=== PATIENT | male | born 1940 | race Caucasian/White ===

== ENCOUNTER 2020-02-01 13:00 | Outpatient (CLI) | payer MEDICARE, SELFPAY | END 2020-02-01 13:01 | disposition home or self-care (01) | LOC: WOUND 13:03 | PROVIDERS: Family Provider Internal Medicine; Visit Provider Nurse Practitioner Family | DX: I89.0 Lymphedema, not elsewhere classified (principal) | CPT/HCPCS: 99212; A6545 ==

== ENCOUNTER → 2020-02-02 16:02 | Outpatient (BNVA) | payer MEDICARE, SELFPAY | PROVIDERS: Family Provider Internal Medicine; PCP Family Medicine; Visit Provider Internal Medicine Cardiovascular Disease | DX: R06.09 Other forms of dyspnea (principal); R07.9 Chest pain, unspecified; I50.33 Acute on chronic diastolic (congestive) heart failure; M79.89 Other specified soft tissue disorders; R06.02 Shortness of breath; Z79.01 Long term (current) use of anticoagulants | CPT/HCPCS: 80048; 83880; 85025 ==

== ENCOUNTER 2020-07-13 13:03 | Outpatient (CLI) | payer MEDICARE, SELFPAY | END 2020-07-13 13:04 | disposition home or self-care (01) | LOC: WOUND 13:04 | PROVIDERS: Family Provider Internal Medicine; PCP Family Medicine; Visit Provider Thoracic Surgery (Cardiothoracic Vascular Surgery) | DX: E11.622 Type 2 diabetes mellitus with other skin ulcer (principal); L97.822 Non-pressure chronic ulcer of other part of left lower leg with fat layer exposed | CPT/HCPCS: 97597; 99203 ==

== ENCOUNTER 2020-07-15 09:43 | Outpatient (CLI) | payer MEDICARE, SELFPAY | END 2020-07-15 09:44 | disposition home or self-care (01) | LOC: WOUND 09:44 | PROVIDERS: Family Provider Internal Medicine; PCP Family Medicine; Visit Provider Surgery | DX: E11.622 Type 2 diabetes mellitus with other skin ulcer (principal); L97.222 Non-pressure chronic ulcer of left calf with fat layer exposed | CPT/HCPCS: 29581 ==

== ENCOUNTER 2020-07-20 08:02 | Outpatient (CLI) | payer MEDICARE, SELFPAY ==
--- NOTE | 2020-07-20 | USCV_ITS ---
Junior Ciara Age: 80 Gender: M : 1940 Exam Date: 07/20/2020 08:35 Ordering Phys: Sagar Glasgow MD (Andy) ([email or web address] [email or web address] Technologist: [place] [facility] [place]: non healing ulcer RIGHT LEFT Brachial 136.00 mmHg Brachial 126.00 mmHg Pressure (mmHg) Waveform Pressure (mmHg) Waveform 166.00 Below Knee 144.00 210.00 CAMP MANAGER 173.00 208.00 DPA 166.00 1.54 Ankle/Brachial Index 1.27 139.00 Pre-Exercise Toe Pressure 113.00 1.02 Pre-Exercise Toe/Brachial Index 0.83 FINDINGS Supernormal resting NAN on the right side with a normal resting TBI. Normal resting NAN and TBI on the left side. CONCLUSIONS No significant arterial obstruction, based on the above findings Dr Aysha Jacobo MD [facility]GED WITH [facility] (Electronically Signed) Final Date: 20 July 2020 11:51 S
--- NOTE | 2020-07-20 08:11 | USCV_ITS ---
Junior Ciara Age: 80 Gender: M : 1940 Exam Date: 07/20/2020 08:40 Ordering Phys: Sagar Glasgow MD (Andy) ([email or web address]) Technologist: Mary Kate Boyce [place] [facility] [place]: non healing ulcer HISTORY: Non healing ulcer PROCEDURES: Bilateral duplex Venous Insufficiency study of the Deep and Superficial systems was carried out according to normal protocol with the patient in supine positon for deep system and dependent position for the superficial system. FINDINGS: Unable to perform exam due to intolerance by patient. Dr. Glasgow was informed, Need a non diagnostic report to show it was attempted. CONCLUSIONS Exam attempted and Patient unable to tolerate examination. Jb Power MD (Electronically Signed) Final Date: 20 July 2020 17:15 S
== END 2020-07-20 08:03 | disposition home or self-care (01) ==
LOC: RAD 08:09
PROVIDERS: PCP Family Medicine; Visit Provider Thoracic Surgery (Cardiothoracic Vascular Surgery)
DX: M79.604 Pain in right leg (principal); M79.605 Pain in left leg; L53.9 Erythematous condition, unspecified; L97.929 Non-pressure chronic ulcer of unspecified part of left lower leg with unspecified severity; L97.919 Non-pressure chronic ulcer of unspecified part of right lower leg with unspecified severity
CPT/HCPCS: 93923; 93970

== ENCOUNTER 2020-07-20 09:24 | Outpatient (CLI) | payer MEDICARE, SELFPAY | END 2020-07-20 09:25 | disposition home or self-care (01) | LOC: WOUND 09:25 | PROVIDERS: PCP Family Medicine; Visit Provider Thoracic Surgery (Cardiothoracic Vascular Surgery) | DX: I87.2 Venous insufficiency (chronic) (peripheral) (principal); L97.822 Non-pressure chronic ulcer of other part of left lower leg with fat layer exposed; M79.604 Pain in right leg; M79.605 Pain in left leg; L53.9 Erythematous condition, unspecified; L97.929 Non-pressure chronic ulcer of unspecified part of left lower leg with unspecified severity; L97.919 Non-pressure chronic ulcer of unspecified part of right lower leg with unspecified severity | CPT/HCPCS: 11042; 93923 ==

== ENCOUNTER 2020-07-27 14:40 | Outpatient (CLI) | payer MEDICARE, SELFPAY | END 2020-07-27 14:41 | disposition home or self-care (01) | LOC: WOUND 14:41 | PROVIDERS: PCP Family Medicine; Visit Provider Thoracic Surgery (Cardiothoracic Vascular Surgery) | DX: I87.2 Venous insufficiency (chronic) (peripheral) (principal); L97.822 Non-pressure chronic ulcer of other part of left lower leg with fat layer exposed; L97.812 Non-pressure chronic ulcer of other part of right lower leg with fat layer exposed | CPT/HCPCS: 11042 ==

== ENCOUNTER 2020-07-29 12:58 | Outpatient (CLI) | payer MEDICARE, SELFPAY | END 2020-07-29 12:59 | disposition home or self-care (01) | LOC: WOUND 12:58 | PROVIDERS: PCP Family Medicine; Visit Provider Surgery | DX: E11.622 Type 2 diabetes mellitus with other skin ulcer (principal); L97.222 Non-pressure chronic ulcer of left calf with fat layer exposed | CPT/HCPCS: 29581 ==

== ENCOUNTER 2020-08-02 14:20 | Outpatient (CLI) | payer MEDICARE, SELFPAY | END 2020-08-02 14:21 | disposition home or self-care (01) | LOC: WOUND 14:21 | PROVIDERS: PCP Family Medicine; Visit Provider Nurse Practitioner Family | DX: I87.2 Venous insufficiency (chronic) (peripheral) (principal); L97.811 Non-pressure chronic ulcer of other part of right lower leg limited to breakdown of skin | CPT/HCPCS: 11042 ==

== ENCOUNTER 2020-08-09 13:37 | Outpatient (CLI) | payer MEDICARE, SELFPAY | END 2020-08-09 13:38 | disposition home or self-care (01) | LOC: WOUND 13:38 | PROVIDERS: PCP Family Medicine; Visit Provider Nurse Practitioner Family | DX: E11.622 Type 2 diabetes mellitus with other skin ulcer (principal); L97.222 Non-pressure chronic ulcer of left calf with fat layer exposed | CPT/HCPCS: 29581; 99214 ==

== ENCOUNTER 2020-08-16 13:29 | Outpatient (CLI) | payer MEDICARE, SELFPAY | END 2020-08-16 13:30 | disposition home or self-care (01) | LOC: WOUND 13:30 | PROVIDERS: PCP Family Medicine; Visit Provider Thoracic Surgery (Cardiothoracic Vascular Surgery) | DX: Z09 Encounter for follow-up examination after completed treatment for conditions other than malignant neoplasm (principal) | CPT/HCPCS: 99212; A6545 ==

== ENCOUNTER → 2020-08-17 15:45 | Outpatient (BNVA) | payer MEDICARE, SELFPAY | PROVIDERS: PCP Internal Medicine; Visit Provider Emergency Medicine | DX: Z20.828 Contact with and (suspected) exposure to other viral communicable diseases (principal) | CPT/HCPCS: 87635 ==

== ENCOUNTER 2020-08-24 07:40 | Outpatient (CLI) | payer MEDICARE, SELFPAY ==
[2020-08-24 07:43] VITALS: BMI 36.9
--- NOTE | 2020-08-24 08:01 | ECG_ITS ---
[facility] Test Date: 2020-08-24 Pat Name: Junior Urbina Department: Room: Gender: Male Stay Cutter: Trudi Giraldo : 1940 Requested By: Aysha Jacobo Order Number: [id number] Choco MD: Aysha Jacobo M.D. Interpretive Statements NAME OF STUDY: LEXISCAN SESTAMIBI STRESS TEST INDICATION: Chest Pain, PROCEDURE: At the baseline, the EKG revealed normal sinus rhythm with some nonspecific ST changes. First-degree AV block. The baseline blood pressure was 141/75 mm Hg with a heart rate of 73 beats/min. Lexiscan was infused over a period of 20 seconds. A total of 0.4 milligrams of Lexiscan was infused. The stress phase was continued for a total of 5 minutes. Heart rate at the end of the stress phase was 81 with a blood pressure 140/69. The EKG at the peak infusion revealed no significant changes. Sestamibi was injected 20 seconds after the Lexiscan infusion. Blood pressure at the end of the recovery phase was 150/72 with a heart rate of 83 per minute. CONCLUSION: 1. No significant EKG changes with the LexiScan infusion 2. No LexiScan induced chest pain or cardiac arrhythmia 3. Normal blood pressure and heart rate response 4. Sestamibi/sestamibi perfusion scan pending; see separate report. Electronically Signed On 08-24-2020 19:47:01 BELT CLEANER by Aysha Jacobo M.D. [id number]
--- NOTE | 2020-08-24 08:02 | NMCV_ITS ---
NM deangelo perf SPECT r/s* [id number] Junior Ciara Age: 80 Gender: M : 1940 Exam Date: 08/24/2020 08:02 Ordering Phys: Aysha Jacobo MD ([email or web address]) Technologist: ALFREDO Murdock Exam Location: [facility] Indications: SOB STRESS TEST [facility] IMAGE PROTOCOL Rest/Stress 1 Lexiscan Day Radiopharmaceutical Dose (mCi) Administration Site Administered by Rest: Tc-99m 11.0 IV ALFREDO Murdock Sestamibi Stress:Tc-99m 33.0 IV ALFREDO Murdock Sestamibi Rest: 24-Aug-2020 60 Discovery 630 Stress: 24-Aug-2020 60 Discovery 630 0.4mg Lexiscan. Supine position only as patient was unable to lay prone. SPECT RESULTS Technical Quality: Good Raw Data Analysis: Soft tissue attenuation Image Corrections: No attenuation or motion correction applied Summed Stress Score: 1 Summed Rest Score: 5 Summed Difference Score: 0 PERFUSION FINDINGS Patchy areas of decreased tracer uptake were noted in the inferior and apical lateral wall regions. No significant reversibility was noted in these regions. FUNCTIONAL RESULTS (calculated via Gated SPECT) Stress Image LV EF (%): 60 Stress EDV (mL):96 TID: 1.11 Stress ESV (mL):38 FUNCTIONAL FINDINGS: Segmental wall motion analysis revealing no gross wall motion normalities. IMPRESSIONS 1. Myocardial perfusion imaging revealing patchy areas of persistent decreased tracer uptake in the inferior and apical lateral wall regions, suggestive of myocardial scarring versus attenuation artifact. 2. Normal LV ejection fraction of 60%. 3. LV wall motion analysis revealing no gross wall motion normalities. 4. Normal LV volume. No significant coronary ischemia, based on the above finding Dr Aysha Jacobo MD FACC (Electronically Signed) Final Date: 24 August 2020 13:23 S
[2020-08-24 09:51] VITALS: PULSE 83
[2020-08-24] MEDS: regadenoson 0.4 Mg/5 ml Syringe IVP (09:51)
== END 2020-08-24 07:41 | disposition home or self-care (01) ==
LOC: CDL 07:42
PROVIDERS: PCP Internal Medicine; Visit Provider Internal Medicine Cardiovascular Disease
DX: R06.02 Shortness of breath (principal)
CPT/HCPCS: 78452; 93017; A9500; J2785

== ENCOUNTER 2020-08-24 13:10 | Outpatient (CLI) | payer MEDICARE, SELFPAY | END 2020-08-24 13:11 | disposition home or self-care (01) | LOC: WOUND 13:11 | PROVIDERS: PCP Internal Medicine; Visit Provider Thoracic Surgery (Cardiothoracic Vascular Surgery) | DX: Z09 Encounter for follow-up examination after completed treatment for conditions other than malignant neoplasm (principal) | CPT/HCPCS: 99212 ==

== ENCOUNTER 2020-12-28 06:00 | Outpatient (RCR) | payer MEDICARE, SELFPAY | END 2021-01-13 23:59 | disposition home or self-care (01) | LOC: MOT 06:00 | PROVIDERS: PCP Internal Medicine; Referring Provider Podiatrist Foot & Ankle Surgery; Visit Provider Podiatrist Foot & Ankle Surgery | DX: I89.0 Lymphedema, not elsewhere classified (principal) | CPT/HCPCS: 97140; 97166 ==

== ENCOUNTER 2021-01-14 06:00 | Outpatient (RCR) | payer MEDICARE, SELFPAY | END 2021-02-13 23:59 | disposition home or self-care (01) | LOC: MOT 06:00 | PROVIDERS: PCP Internal Medicine; Referring Provider Podiatrist Foot & Ankle Surgery; Visit Provider Podiatrist Foot & Ankle Surgery | DX: I89.0 Lymphedema, not elsewhere classified (principal) | CPT/HCPCS: 97140 ==

== ENCOUNTER → 2022-03-20 09:22 | Outpatient (BNVA) | payer MEDICARE, SELFPAY | PROVIDERS: PCP Internal Medicine; Visit Provider Emergency Medicine | DX: I96 Gangrene, not elsewhere classified (principal); L97.811 Non-pressure chronic ulcer of other part of right lower leg limited to breakdown of skin | CPT/HCPCS: 11042; 99213 ==

== ENCOUNTER → 2022-03-27 09:44 | Outpatient (BNVA) | payer MEDICARE, SELFPAY | PROVIDERS: PCP Internal Medicine; Visit Provider Nurse Practitioner Family | DX: Z09 Encounter for follow-up examination after completed treatment for conditions other than malignant neoplasm (principal) | CPT/HCPCS: 99212 ==

== ENCOUNTER → 2022-04-02 15:02 | Outpatient (BNVA) | payer MEDICARE, SELFPAY | PROVIDERS: PCP Internal Medicine; Visit Provider Internal Medicine Cardiovascular Disease | DX: R06.02 Shortness of breath (principal); R06.09 Other forms of dyspnea; I50.33 Acute on chronic diastolic (congestive) heart failure; I49.9 Cardiac arrhythmia, unspecified; E78.5 Hyperlipidemia, unspecified; I10 Essential (primary) hypertension; E11.42 Type 2 diabetes mellitus with diabetic polyneuropathy; R07.9 Chest pain, unspecified | CPT/HCPCS: 80048; 83880 ==

== ENCOUNTER → 2022-04-10 09:53 | Outpatient (BNVA) | payer MEDICARE, SELFPAY | PROVIDERS: PCP Internal Medicine; Visit Provider Nurse Practitioner Family | DX: Z09 Encounter for follow-up examination after completed treatment for conditions other than malignant neoplasm (principal) | CPT/HCPCS: 99212 ==

== ENCOUNTER 2022-04-23 16:21 | Observation (INO) | payer MEDICARE, SELFPAY ==
[2022-04-23] VITALS (11 sets, daily range): BP systolic 127–169; BP diastolic 60–86; PULSE 69–80; RESP 17–24; TEMP 36.8; O2SAT 90–100; BMI 36.6
--- NOTE | 2022-04-23 17:21 | XRR_ITS ---
PROCEDURE INFORMATION: Exam: XR Chest Exam date and time: 04/23/2022 5:41 PM Age: 82 years old Clinical indication: Angina; Additional info: Chest pain TECHNIQUE: Imaging protocol: Radiologic exam of the chest. Views: 1 view. COMPARISON: CR Chest 2 views* [id number] 10/09/2017 11:08 AM FINDINGS: Lungs: Unremarkable. No consolidation. Pleural spaces: Unremarkable. No pleural effusion. No pneumothorax. Heart/Mediastinum: Unremarkable. No cardiomegaly. Diaphragm: Stable elevation of the left hemidiaphragm consistent with eventration. Bones/joints: Unremarkable. XR/XR chest 1V portable [id number] IMPRESSION: No acute intracranial findings.
--- NOTE | 2022-04-23 17:21 | ECG_ITS ---
[facility] Test Date: 2022-04-23 Pat Name: Junior Urbina Department: Room: Gender: Male Director Of Special Events: : 1940 Requested By: Merissa Lenz Order Number: [id number] Reading MD: Aysha Jacobo M.D. Measurements Intervals [place] Rate: 73 P: 92 ND: 241 QRS: 17 QRSD: 108 T: 69 QT: 396 QTc: 437 Interpretive Statements SINUS RHYTHM WITH FIRST DEGREE AV BLOCK POSSIBLE RIGHT VENTRICULAR CONDUCTION DELAY [RSR (QR) IN V1/V2] NONSPECIFIC T-WAVE ABNORMALITY Compared to ECG 04/23/2022 16:37:54 No significant changes Electronically Signed On 04-24-2022 0:50:02 CDT by Aysha Jacobo M.D. [id number]
--- NOTE | 2022-04-23 17:27 | ED_ITS ---
HPI - Chest Pain General: Chief Complaint: Chest Pain Stated Complaint: Chest pains Time Seen by Provider: 04/23/22 17:21 [facility] PFSH: Medical History Arrhythmia Atherosclerosis Bilateral occipital neuralgia COPD (chronic obstructive pulmonary disease) Disc degeneration, lumbosacral MANZANARES (dyspnea on exertion) The EKG showed normal sinus rhythm with first-degree AV block. Some nonspecific T wave changes. normal QRS duration. Dyslipidemia (high LDL; low HDL) GERD (gastroesophageal reflux disease) Gout Hypertension Leg swelling Peripheral neuropathy Type 2 diabetes mellitus Surgical History History of ankle surgery History of surgery on arm History of total left hip replacement Hx of cataract extraction Family History Brother Cancer Lung disease Father Cancer Chronic kidney disease (CKD) Grandfather Cancer Lung disease Mother Dementia Diabetes Family/Other Diabetes Chronic kidney disease (CKD) Other CAD (coronary artery disease) Denies family history of Clotting disorder Suicide Anesthesia complication Bleeding disorder Stroke Social History Smoking and tobacco status: former smoker Alcohol intake: never Course Vital Signs: Vital signs: Vital Signs Temperature 98.2 F 04/23/22 16:27 Pulse Rate 80 04/23/22 16:27 Respiratory Rate 17 04/23/22 16:27 Blood Pressure 137/77 04/23/22 16:27 Pulse Oximetry 95 04/23/22 16:27 Oxygen Delivery Ny thod 04/23/22 16:27 MDM - Chest Pain Lab Data : 04/23/22 17:35 04/23/22 17:35 Laboratory Results WBC 9.9 10^3/uL (4.0-10.0) 04/23/22 17:35 RBC 4.87 10^6/uL (4.1-5.3) 04/23/22 17:35 Hgb 15.0 g/dL (11.7-16.6) 04/23/22 17:35 Hct 46.8 % (42.0-52.0) 04/23/22 17:35 MCV 96.1 fl (80-94) H 04/23/22 17:35 MCH 30.8 pg (28.0-34.0) 04/23/22 17:35 MCHC 32.1 g/dL (30.0-36.0) 04/23/22 17:35 RDW 15.0 % (12.1-15.1) 04/23/22 17:35 Plt Count 281 10^3/cmm (130-400) 04/23/22 17:35 MPV 9.6 fL (7.4-10.4) 04/23/22 17:35 Neut % (Auto) 68.2 % 04/23/22 17:35 Lymph % (Auto) 20.3 % 04/23/22 17:35 [place] % (Auto) 8.4 % 04/23/22 17:35 Eos % (Auto) 2.2 % 04/23/22 17:35 Baso % (Auto) 0.5 % 04/23/22 17:35 Neut # (Auto) 6.73 10^3/uL (1.8-7.7) 04/23/22 17:35 Lymph # (Auto) 2.0 10^3/uL (0.8-4.8) 04/23/22 17:35 [place] # (Auto) 0.8 10^3/uL (0.2-0.9) 04/23/22 17:35 Eos # (Auto) 0.2 10^3/uL (0.0-0.8) 04/23/22 17:35 Baso # (Auto) 0.1 10^3/uL (0.0-0.1) 04/23/22 17:35 Nucleated RBC % (auto) 0 % 04/23/22 17:35 Nucleated RBCs # 0.0 /100WBC 04/23/22 17:35 Discharge Plan Discharge Patient Disposition: Admitted As Inpatient Clinical Impression: Chest pain Condition: Stable Coding Level of Care Code ED Swaging Machine Operator for Gregor Mcallister
--- NOTE | 2022-04-23 17:38 | PC.NURSE ---
PT reports chest pain radiating to his back and shoulders. Reports cp has been intermittent since saturday, was present when he woke up. Denies dyspnea above baseline, nausea, or diaphoresis. reports overall doesn't feel good. Lung sounds clear. Heart tones normal. Skin pink/warm/dry.
[2022-04-23] MEDS: aspirin 325 mg Tablet PO (17:41)
[2022-04-23 17:49] LABS: Basophils # 0.1 10^3/uL (0.0-0.1); Basophils % 0.5 %; Eosinophils # 0.2 10^3/uL (0.0-0.8); Eosinophils % 2.2 %; Hematocrit 46.8 % (42.0-52.0); Lymphocytes % 20.3 %; Mean Corpuscular HGB Conc 32.1 g/dL (30.0-36.0); Mean Corpuscular Hemoglobin 30.8 pg (28.0-34.0); Mean Corpuscular Volume 96.1 fl (80-94); Mean Platelet Volume 9.6 fL (7.4-10.4); Monocytes # 0.8 10^3/uL (0.2-0.9); Monocytes % 8.4 %; Neutrophils # 6.73 10^3/uL (1.8-7.7); Neutrophils % 68.2 %; Nucleated Red Blood Cells % 0 %; Platelet Count 281 10^3/cmm (130-400); Red Blood Count 4.87 10^6/uL (4.1-5.3); White Blood Count 9.9 10^3/uL (4.0-10.0)
--- NOTE | 2022-04-23 17:57 | CTR_ITS ---
PROCEDURE INFORMATION: Exam: CTA Abdomen and Pelvis With Contrast Exam date and time: 04/23/2022 7:10 PM Age: 82 years old Clinical indication: Condition or disease; Other: Widened mediastinum, chest pain; Shortness of breath TECHNIQUE: Imaging protocol: Computed tomographic angiography of the abdomen and pelvis with contrast. 3D rendering (Not supervised by radiologist): MIP and/or 3D reconstructed images were created by the technologist. Radiation optimization: All CT scans at this facility use at least one of these dose optimization techniques: automated exposure control; mA and/or kV adjustment per patient size (includes targeted exams where dose is matched to clinical indication); or iterative reconstruction. Contrast material: OMNIPAQUE; Contrast volume: 90 ml; Contrast route: INTRAVENOUS (IV); COMPARISON: CR (CHEST, ) 04/23/2022 5:41 PM RADIATION DOSE METRICS: Total DLP (mGy-cm): 1552.36 FINDINGS: Lungs: Bibasilar atelectasis versus minimal infiltrate. Heart: Cardiomegaly. Coronary artery atherosclerotic calcifications. Diaphragm: Left diaphragmatic eventration. Aorta: No aortic aneurysm. No aortic dissection. Celiac trunk and mesenteric arteries: No occlusion or significant stenosis. Renal arteries: No occlusion or significant stenosis. Right iliac arteries: No occlusion or significant stenosis. Left iliac arteries: No occlusion or significant stenosis. Liver: No mass. Gallbladder and bile ducts: Unremarkable. No calcified stones. No ductal dilation. Pancreas: Unremarkable. No mass. No ductal dilation. Spleen: Unremarkable. No splenomegaly. Adrenal glands: Unremarkable. No mass. Kidneys and ureters: Unremarkable. No solid mass. No hydronephrosis. Stomach and bowel: Unremarkable. No obstruction. No mucosal thickening. Appendix: No evidence of appendicitis. Intraperitoneal space: Unremarkable. No free air. No significant fluid collection. Lymph nodes: Unremarkable. No enlarged lymph nodes. Urinary bladder: Unremarkable. No mass. Reproductive: Prostate gland enlarged. Bones/joints: Left hip surgical hardware. Soft tissues: Unremarkable. CT/CT angio chest abdomen pelvis IMPRESSION: 1. Abdominal aorta intact, negative for acute inflammatory process in the abdomen or pelvis. 2. Cardiomegaly. 3. Coronary artery atherosclerotic calcifications. 4. Bibasilar atelectasis versus minimal infiltrate. 5. Left diaphragmatic eventration. 6. Left hip surgical hardware. 7. Prostate gland enlarged.
--- NOTE | 2022-04-23 18:05 | W.ED.GENADLT ---
HPI - General Adult General: Chief complaint: Chest Pain Stated complaint: Chest pains Time Seen by Provider: 04/23/22 17:21 History of Present Illness: CC: Chest Pain HPI: This is a [82] yo patient hx of DM, HTN, COPD presenting to the ED complaining of acute sudden onset intermittent sharp chest pain for the last 2 days. Patient reports initially chest pain was on the left side of the chest and now is on the right. Patient said the each episode also chest pain lasting for few seconds to a minute at a time.. No associated with shortness of breath, chest pain or dyspnea on exertion. Pain is not tearing in nature and does not radiate to the back. Pain not associated with vomiting or PO intake. Denies any recent sympathomimetic drug use. Patient denies any cough. Denies palpitations, dysphagia, diaphoresis, radiation of pain to bilateral arms, jaw. Denies F/N/V/D. Patient denies any recent immobility, surgery, unilateral leg swelling, or prior PE. Patient denies any orthopnea. Onset: 3 days ago Duration: ongoing for the last 3 days Location: home Severity: moderate Associated symptoms: Reports chest pain; Deny dyspnea, nausea, rash, palpitations or vomiting Review of Systems Const: Denies: fever(s) or chills Eyes: Denies: change in vision ENMT: Denies: mouth pain Card: Reports: chest pain; Denies: palpitations Resp: Denies: dyspnea or non-productive cough GI: Denies: abdominal pain, nausea, vomiting or diarrhea : Denies: dysuria Musc: Denies: extremity pain Skin/Breast: Denies: rash or new lesions Neuro: Denies: weakness in extremities Psych: Reports: other (Normal mood) Juanito/Lymph: Denies: easy bruising [facility] ED PFSH: Medical History (Updated 04/25/22 @ 00:01 by ) Arrhythmia Atherosclerosis Bilateral occipital neuralgia Chest pain COPD (chronic obstructive pulmonary disease) 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 Some nonspecific T wave changes. normal QRS duration. Dyslipidemia (high LDL; low HDL) Elevated troponin GERD (gastroesophageal reflux disease) Gout Hypertension Leg swelling Peripheral neuropathy PVD (peripheral vascular disease) Type 2 diabetes mellitus Surgical History History of ankle surgery History of surgery on arm History of total left hip replacement Hx of cataract extraction Family History Brother Cancer Lung disease Father Cancer Chronic kidney disease (CKD) Grandfather Cancer Lung disease Mother Dementia Diabetes Family/Other Diabetes Chronic kidney disease (CKD) Other CAD (coronary artery disease) Denies family history of Clotting disorder Suicide Anesthesia complication Bleeding disorder Stroke Social History Smoking and tobacco status: former smoker Alcohol intake: never Physical Exam Const: COMMON NORMALS: alert HENMT: COMMON NORMALS: atraumatic HEAD & SCALP: atraumatic MOUTH: moist mucous membranes not abnormal Eye: COMMON NORMALS: EOMs intact bilaterally and conjunctivae normal CONJUNCTIVA: Yes conjunctivae normal Neck/C-Spine: COMMON NORMALS: full ROM and supple Resp: COMMON NORMALS: normal respiratory effort and clear to auscultation bilaterally AUSCULTATION: clear to auscultation bilaterally Cardio: COMMON NORMALS: regular rate RATE: regular rate OTHER: 2+ radial pulses b/l GI: COMMON NORMALS: Soft to palpation and non-tender PALPATION: Yes Soft to palpation OTHER: No focal TTP. NO guarding rebound, guarding, rigidity. No CVA tenderness to percussion. Neg Rocha/Neg McBurney's point tenderness, no suprabupic tenderness to palpation. Extremity: COMMON NORMALS: full ROM Neuro: SENSORIUM/ORIENTATION: Yes alert MOTOR EXAM: No Abnormal motor strength present and Other motor observations present (no focal motor deficits) Psych: COMMON NORMALS: speech normal SPEECH: Yes normal speech MOOD & AFFECT: Yes euthymic mood Course Vital Signs: Vital signs: Vital Signs Temperature 97.9 F 04/24/22 14:27 Pulse Rate 70 04/24/22 14:27 Respiratory Rate 16 04/24/22 14:27 Blood Pressure 130/81 04/24/22 14:27 Pulse Oximetry 91 04/24/22 14:27 Oxygen Delivery Me thod 04/24/22 12:00 MDM - General Adult Medical Decision Making [82]yo patient w/ hx of DM, HTN presenting to the ED with evaluation of new onset sharp chest pain on the left and right chest for the last 3 days. Days. HDS, pulse 2+ radially bilaterally, no signs of fluid overload, AAOx3, neuro exam intact. Workup: ECG x 2, CXR, CBC, BMP, Troponin x 2 Interventions: ASA Findings: ECG: No overt evidence of STEMI, hyperacute T waves, localizable STD or T wave inversions. No evidence of Brugada?s sign, delta wave, epsilon wave, significantly prolonged QTc, or malignant arrhythmia. No Q waves. Other Labs unremarkable for emergent problems. CXR: Without PTX, PNA, or widened mediastinum [8:33pm] On reassessment, the patient is HDS, no complaints of persistent chest pain in the ED after evaluation. ECG is non-ischemic. Troponins with a delta of 7. No prior chest pain work-up. Patient remitted to hospital for further evaluation. Disposition: admission Lab Data : 04/24/22 02:04 04/24/22 02:04 Radiology Impressions Chest X-Ray 04/23/22 17:21 IMPRESSION: No acute intracranial findings. Chest/Abdomen/Pelvis CTA 04/23/22 17:57 IMPRESSION: 1. Abdominal aorta intact, negative for acute inflammatory process in the abdomen or pelvis. 2. Cardiomegaly. 3. Coronary artery atherosclerotic calcifications. 4. Bibasilar atelectasis versus minimal infiltrate. 5. Left diaphragmatic eventration. 6. Left hip surgical hardware. 7. Prostate gland enlarged. Laboratory Results WBC 9.9 10^3/uL (4.0-10.0) 04/23/22 17:35 RBC 4.87 10^6/uL (4.1-5.3) 04/23/22 17:35 Hgb 15.0 g/dL (11.7-16.6) 04/23/22 17:35 Hct 46.8 % (42.0-52.0) 04/23/22 17:35 MCV 96.1 fl (80-94) H 04/23/22 17:35 MCH 30.8 pg (28.0-34.0) 04/23/22 17:35 MCHC 32.1 g/dL (30.0-36.0) 04/23/22 17:35 RDW 15.0 % (12.1-15.1) 04/23/22 17:35 Plt Count 281 10^3/cmm (130-400) 04/23/22 17:35 MPV 9.6 fL (7.4-10.4) 04/23/22 17:35 Neut % (Auto) 68.2 % 04/23/22 17:35 Lymph % (Auto) 20.3 % 04/23/22 17:35 [place] % (Auto) 8.4 % 04/23/22 17:35 Eos % (Auto) 2.2 % 04/23/22 17:35 Baso % (Auto) 0.5 % 04/23/22 17:35 Neut # (Auto) 6.73 10^3/uL (1.8-7.7) 04/23/22 17:35 Lymph # (Auto) 2.0 10^3/uL (0.8-4.8) 04/23/22 17:35 [place] # (Auto) 0.8 10^3/uL (0.2-0.9) 04/23/22 17:35 Eos # (Auto) 0.2 10^3/uL (0.0-0.8) 04/23/22 17:35 Baso # (Auto) 0.1 10^3/uL (0.0-0.1) 04/23/22 17:35 Nucleated RBC % (auto) 0 % 04/23/22 17:35 Nucleated RBCs # 0.0 /100WBC 04/23/22 17:35 Sodium 139 mmol/L (136-145) 04/23/22 17:35 Potassium 3.6 mmol/L (3.5-5.1) 04/23/22 17:35 Chloride 100 mmol/L (98-107) 04/23/22 17:35 Carbon Dioxide 29 mmol/L (22-29) 04/23/22 17:35 Anion Gap 13.6 (5-19) 04/23/22 17:35 BUN 13 mg/dL (8-23) 04/23/22 17:35 Creatinine 0.7 mg/dL (0.7-1.2) 04/23/22 17:35 GFR Calculation Not Reportable 04/23/22 17:35 Glucose 122 mg/dL (65-115) H 04/23/22 17:35 Estimat Average Glucose 154 04/23/22 17:35 Hemoglobin A1c 7.0 % (4.0-6.0) H 04/23/22 17:35 Calculated Osmolality 289 mOsm/kg (285-295) 04/23/22 17:35 Calcium 9.5 mg/dL (8.5-10.5) 04/23/22 17:35 Troponin T Baseline 12 ng/L (0-15) 04/23/22 17:35 Troponin T 120 Minute 19.74 ng/L (0-15) H 04/23/22 19:40 Delta Troponin T 7.74 ABS# (0-10) 04/23/22 19:40 TSH 2.07 uIU/mL (0.27-4.20) 04/23/22 17:35 Discharge Plan Discharge Patient Disposition: Admitted As Inpatient Admit Provider: Yoandy Rodriguez Clinical Impression: Chest pain, Elevated troponin Condition: Stable Coding Level of Care Code ED [employer] Director for Chg Fwd Exam Comprehensive
[2022-04-23 18:50] LABS: Troponin(5th) Baseline 12 ng/L (0-15)
--- NOTE | 2022-04-23 19:05 | PC.NURSE ---
report given to Renetta
[2022-04-23 19:15] LABS: Anion Gap 13.6 (5-19); Osmolality Calculated 289 mOsm/kg (285-295); Potassium 3.6 mmol/L (3.5-5.1)
[2022-04-23] MEDS: iohexol 350 mg/mL 100 mL Btl IV (19:17)
[2022-04-23 19:24] LABS: Blood Urea Nitrogen 13 mg/dL (8-23); Calcium 9.5 mg/dL (8.5-10.5); Carbon Dioxide 29 mmol/L (22-29); Chloride 100 mmol/L (98-107); Glucose 122 mg/dL (65-115); Sodium 139 mmol/L (136-145)
[2022-04-23 20:19] LABS: Troponin 5 2HR 19.74 ng/L (0-15)
[2022-04-23 20:24] LABS: Troponin 5 2HR Delta 7.74 ABS# (0-10)
--- NOTE | 2022-04-23 21:37 | USCV_ITS ---
Junior Ciara Age: 82 Gender: M : 1940 Exam Date: 04/23/2022 23:04 Ordering Phys: Yoandy Rodriguez MD Technologist: GUANAKITO Exam Location: [facility] [place] Indication: CHEST pain. No history of cardiac intervention per patient. BP: 169 / 73 HR: 71 Rhythm: Sinus Technical Quality: Technically difficult study poor windows MEASUREMENTS (Male / Female) Normal Values 2D ECHO LV Diastolic Diameter PLAX 3.2 cm 4.2 - 5.9 / 3.9 - 5.3 cm LV Systolic Diameter PLAX 2.3 cm IVS Diastolic Thickness 1.6 cm 0.6 - 1.0 / 0.6 - 0.9 cm IVS Systolic Thickness 1.7 cm LVPW Diastolic Thickness 1.6 cm 0.6 - 1.0 / 0.6 - 0.9 cm LVPW Systolic Thickness 1.7 cm LVOT Diameter 2.3 cm LV Ejection Fraction 2D Teich 55.5 % LV Ejection Fraction MOD 2C 48.7 % LV Ejection Fraction 2C AL 49.3 % LA Diameter 4.3 cm LA Width 4.2 cm LA Height 5.4 cm RA Width 3.3 cm RA Height 4.8 cm Aorta at Sinotubular Diameter 3.7 cm M-MODE Aortic Annulus Diameter 3.8 cm LA Ao Ratio MM 1.0 MV E Point Septal Separation 0.6 cm DOPPLER AV Peak Velocity 89.0 cm/s LVOT Peak Velocity 73.0 cm/s AV Area Cont Eq vti 3.4 cm squared AV Area Cont Eq pk 3.4 cm squared MV Area PHT 2.2 cm squared Mitral E to A Ratio 0.9 MV E' Velocity 51.0 cm/s Mitral E to MV E' Ratio 12.1 Mitral E to LV E' Lateral Ratio 10.6 Mitral E to LV E' Septal Ratio 14.3 FINDINGS Left Ventricle Technically limited quality echocardiogram because of poor ultrasonic windows. LV systolic function is grossly normal. Regional wall motion abnormalities cannot be accurately assessed because of poor visualization. Right Ventricle Grossly normal Right Atrium Not well-visualized Left Atrium Normal in size Mitral Valve Grossly normal Aortic Valve Not well-visualized Tricuspid Valve Not well-visualized Pulmonic Valve Not visualized Pericardium Grossly normal Aorta Mildly dilated aortic root IVC CONCLUSIONS Technically limited quality echocardiogram because of poor ultrasonic windows. LV systolic function is grossly normal. Regional wall motion abnormalities cannot be accurately assessed because of poor visualization. Valves are not well visualized. Mildly dilated aortic root Comparison with prior echocardiograms not possible because of limited quality studies. Yao Clancy MD (Electronically Signed) Final Date: 24 April 2022 12:10 S
--- NOTE | 2022-04-23 21:39 | P.HP_ITS ---
Providers/Chief Complaint Primary Care Provider: Tyler Rucker MD Chief Complaint: Chest pains History of Present Illness Junior Don Urbina is a 82 year old male with a past medical history of [id number]-[id number] type 2 diabetes mellitus, hypertension, hyperlipidemia, COPD, diabetic peripheral neuropathy, who presents to [facility] for chest pain. Patient tells me that he has had chest pain for the last week, it is left-sided daily, but not on the right side, he thought maybe he pulled a muscle, as his chest wall was tender he tells me that he has 6 steps to climb to his home, he thinks that may be that the reason why he has been having anterior substernal chest pain. However the chest pain was becoming more severe, now becoming right so he came to the emergency room for evaluation. No nausea, no vomiting, no paresthesias, no syncope. He tells me that he recently saw Dr. Jacobo for his chest pain in March, he had test orders but he has not completed them yet. Currently chest pain-free, denies smoking no history of coronary stenting, no history of coronary angiogram, last stress test was 2 years ago Review of Systems Const: Denies: fever(s) Eyes: Denies: change in vision ENMT: Denies: nasal congestion Card: Reports: chest pain; Denies: palpitations or pre-syncope Resp: Denies: dyspnea, productive cough, non-productive cough or wheezing GI: Denies: abdominal pain, nausea, vomiting, hematemesis or diarrhea : Denies: flank pain or dysuria Musc: Denies: back pain Skin/Breast: Denies: rash Neuro: Denies: headache(s), dizziness or vertigo Endo: Denies: polyuria or polydipsia Medications/Allergies Home Medications Medication Instructions Recorded Confirmed Last Taken Type Diabetic shoes #1 ea 11/23/19 04/02/22 Unknown Rx allopurinol 300 mg tablet 150 mg PO DAILY 11/23/19 04/02/22 Unknown History furosemide 40 mg tablet (Lasix) 40 mg PO DAILY 11/23/19 04/02/22 Unknown History guaifenesin 600 mg tablet, 600 mg PO BID 11/23/19 04/02/22 Unknown History extended release 12 hr (Mucinex) losartan 100 mg tablet 100 mg PO DAILY 11/23/19 04/02/22 Unknown History omeprazole 20 mg capsule,delayed 20 mg PO DAILY 11/23/19 04/02/22 Unknown History release potassium chloride 20 mEq 20 meq PO DAILY 11/23/19 04/02/22 Unknown History tablet,extended release(part/cryst) (Klor-Con M) simvastatin 20 mg tablet 20 mg PO DAILY 11/23/19 04/02/22 Unknown History tamsulosin 0.4 mg capsule 0.4 mg PO DAILY 11/23/19 04/02/22 Unknown History topiramate 100 mg tablet (Topamax) 100 mg PO DAILY 11/23/19 04/02/22 Unknown History limpadeama decongestion to the #1 ea 12/20/20 04/02/22 Unknown Rx lower extremities gabapentin 100 mg capsule 100 mg PO TID #90 caps 10/10/21 04/02/22 Unknown Rx metoprolol tartrate 25 mg tablet 12.5 mg PO BID #90 tabs 10/16/21 04/02/22 Unknown Rx mupirocin 2 % topical ointment 1 applic topical BID #22 grams 01/04/22 04/02/22 Unknown Rx clindamycin HCl 300 mg capsule 600 mg PO QID 7 days #56 caps 03/09/22 04/02/22 Unknown Rx Allergies Allergy/AdvReac Type Severity Reaction Status Date / Time morphine Allergy Unknown unknown Verified 04/02/22 08:11 Sulfa (Sulfonamide Allergy heart acts Verified 04/02/22 08:11 Antibiotics) up PFSH Acute PFSH: Medical History (Updated 04/23/22 @ 21:42 by Yoandy Rodriguez MD) Arrhythmia Atherosclerosis Bilateral occipital neuralgia COPD (chronic obstructive pulmonary disease) Disc degeneration, lumbosacral MANZANARES (dyspnea on exertion) The EKG showed normal sinus rhythm with first-degree AV block. Some nonspecific T wave changes. normal QRS duration. Dyslipidemia (high LDL; low HDL) GERD (gastroesophageal reflux disease) Gout Hypertension Leg swelling Peripheral neuropathy Type 2 diabetes mellitus Surgical History History of ankle surgery History of surgery on arm History of total left hip replacement Hx of cataract extraction Family History Brother Cancer Lung disease Father Cancer Chronic kidney disease (CKD) Grandfather Cancer Lung disease Mother Dementia Diabetes Family/Other Diabetes Chronic kidney disease (CKD) Other CAD (coronary artery disease) Denies family history of Clotting disorder Suicide Anesthesia complication Bleeding disorder Stroke Social History Smoking and tobacco status: former smoker Alcohol intake: never Vitals/I&O/Wt Last Vital Signs Temp 98.2 F 04/23/22 16:27 Pulse 71 04/23/22 18:45 Resp 19 H 04/23/22 18:45 BP 169/73 04/23/22 18:45 Pulse Ox 100 04/23/22 18:45 O2 Del Method 04/23/22 16:27 Weight last 48 hrs Weight 126.099 kg Physical Exam Const: COMMON NORMALS: no acute distress and patient oriented x3 HENMT: COMMON NORMALS: normocephalic HEAD & SCALP: normocephalic Eye: COMMON NORMALS: Equal, round and reactive pupils present and EOMs intact bilaterally Neck/C-Spine: COMMON NORMALS: no JVD Resp: COMMON NORMALS: normal respiratory effort, No retractions, No use of accessory muscles and clear to auscultation bilaterally AUSCULTATION: clear to auscultation bilaterally Cardio: COMMON NORMALS: no JVD, regular rate, regular rhythm, S1 normal heart sound present and S2 normal heart sound present RATE: regular rate RHYTHM: regular rhythm HEART SOUNDS: S1 normal heart sound present and S2 normal heart sound present GI: COMMON NORMALS: Normal to inspection, nondistended, normoactive bowel soun ds present, Soft to palpation, non-tender, No hepatosplenomegaly present, no masses and no bruits PALPATION: Yes Soft to palpation and Yes No hepatosplenomegaly present Extremity: COMMON NORMALS: capillary refill normal, no clubbing, cyanosis or edema, no calf tenderness and no pedal edema Neuro: COMMON NORMALS: patient oriented x3, CN's II-XII intact bilaterally, moves all extremities and no focal motor deficits Psych: COMMON NORMALS: mental status grossly normal Data : 04/23/22 17:35 04/23/22 17:35 A&P Assessment and plan (1) Chest pain: Status: Acute (2) Hypertension: Status: Acute Qualifiers: Hypertension type: essential hypertension Qualified Code(s): I10 - Essential (primary) hypertension (3) Diabetic peripheral neuropathy associated with type 2 diabetes mellitus: Status: Acute (4) PVD (peripheral vascular disease): Status: Acute (5) Dyslipidemia (high LDL; low HDL): Status: Acute (6) Type 2 diabetes mellitus: Status: Acute Plan Chest pain -Sounds atypical in nature -Serial EKGs, serial troponins, telemetry monitoring -Aspirin, statin, metoprolol -Cardiac echo, stress testing -Full code -Lovenox for DVT prophylaxis -DNR/DNI Type 2 diabetes mellitus, A1c, low-dose sliding scale Hypertension, continue Lasix, losartan, metoprolol Hyperlipidemia, continue home meds BPH, continue home meds Attestations Medical Necessity Statement*: Patient patient requires hospitalization, outpatient with observation for chest pain Coding Level of Care Code Acute [place] Worker for [facility] Fwd Diagnoses Chest pain R07.9 Hypertension I10 Hypertension type: essential hypertension Diabetic peripheral neuropathy associated with type 2 diabetes mellitus E11.42 PVD (peripheral vascular disease) I73.9 Dyslipidemia (high LDL; low HDL) E78.5 Type 2 diabetes mellitus E11.9
--- NOTE | 2022-04-23 22:40 | ECG_ITS ---
[facility] Test Date: 2022-04-23 Pat Name: Junior Urbina Department: Room: 259 Gender: Male Residential Instructor: : 1940 Requested By: Merissa Lenz Order Number: [id number] Reading MD: Yao Clancy M.D. Measurements Intervals [place] Rate: 75 P: 67 SC: 238 QRS: 23 QRSD: 102 T: 61 QT: 389 QTc: 437 Interpretive Statements SINUS RHYTHM WITH FIRST DEGREE AV BLOCK NONSPECIFIC T-WAVE ABNORMALITY Compared to ECG 04/23/2022 17:28:09 No significant changes Electronically Signed On 04-24-2022 19:03:10 CDT by Yao Clancy M.D. [id number]
[2022-04-23 23:14] LABS: Estmated Average Glucose 154
[2022-04-23 23:22] LABS: Thyroid Stimulating Hormone 2.07 uIU/mL (0.27-4.20)
--- NOTE | 2022-04-24 | ECG_ITS ---
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 Interpretive Statements NAME OF STUDY: LEXISCAN SESTAMIBI STRESS TEST INDICATION: Chest Pain PROCEDURE: At the baseline, the blood pressure was 128/70 mmHg, oxygen saturation 94% with a heart rate of 79 beats per minute. The electrocardiogram showed normal sinus rhythm, normal axis with nonspecific T wave abnormality. The Lexiscan was infused over a period of 20 seconds. A total of 0.4 milligrams of Lexiscan was infused. The stress phase was continued for a total of 5 minutes. Heart rate at the end of the stress phase was 90 bpm, oxygen saturation 93% with a blood pressure of 126/66 mmHg. The EKG at the peak infusion revealed sinus rhythm at 90 bpm with no significant ST-T wave changes. Study was terminated due to protocol completion. Sestamibi was injected 20 seconds after the Lexiscan infusion. Blood pressure at the end of the recovery phase was 145/67 mmHg, oxygen saturation 92% with a heart rate of 88 beats per minute. CONCLUSION: 1. No significant EKG changes with the LexiScan infusion. 2. No LexiScan induced chest pain or cardiac arrhythmia. 3. Normal blood pressure and heart rate response. 4. Sestamibi/sestamibi perfusion scan pending; see separate report. Electronically Signed On 04-24-2022 12:11:33 CDT by Valery Albert M.D. [id number]
--- NOTE | 2022-04-24 00:20 | PC.NURSE ---
Addendum entered by Mary Anne Mistry RN 04/24/22 00:21: ED notified at this time that patient has Lovenox due. Original Note: At this time, patient still has not arrived to the floor and is still in the ED.
[2022-04-24] MEDS: enoxaparin 40 mg/0.4 mL Syringe SUBCUT (00:30)
[2022-04-24] MEDS: pantoprazole 40 mg SDV IVP (00:31)
--- NOTE | 2022-04-24 00:51 | PC.NURSE ---
Patient has wraps to bilateral lower extremities. Patient states they keep the swelling down. Patient also states, I used to have sores all over my legs that I seen wound care for, but they're all healed now.
[2022-04-24] MEDS: acetaminophen 325 mg Tablet 650 MG PO (01:01)
[2022-04-24 01:17] LABS: Glucose Point of Care 154 mg/dL (70-110)
[2022-04-24 01:20] VITALS: BP 140/70; PULSE 79; RESP 17; TEMP 36.6; O2SAT 96
[2022-04-24 02:43] LABS: Basophils # 0.1 10^3/uL (0.0-0.1); Basophils % 0.6 %; Eosinophils # 0.2 10^3/uL (0.0-0.8); Eosinophils % 2.2 %; Hematocrit 46.6 % (42.0-52.0); Hemoglobin 14.2 g/dL (11.7-16.6); Lymphocytes # 1.9 10^3/uL (0.8-4.8); Mean Corpuscular HGB Conc 30.5 g/dL (30.0-36.0); Mean Corpuscular Hemoglobin 29.7 pg (28.0-34.0); Mean Corpuscular Volume 97.5 fl (80-94); Mean Platelet Volume 10.1 fL (7.4-10.4); Monocytes # 0.7 10^3/uL (0.2-0.9); Monocytes % 8.6 %; Neutrophils # 5.62 10^3/uL (1.8-7.7); Neutrophils % 66.2 %; Nucleated Red Blood Cells % 0 %; Platelet Count 249 10^3/cmm (130-400); Red Blood Count 4.78 10^6/uL (4.1-5.3); White Blood Count 8.5 10^3/uL (4.0-10.0)
[2022-04-24 03:05] LABS: Troponin 5 6HR 16.78 ng/L (0-15); Troponin 5 6HR Delta 4.78 ng/L (0-12)
[2022-04-24 03:10] LABS: Alanine Aminotransferase 25 U/L (0-41); Albumin Level 3.1 g/dL (3.5-5.2); Alkaline Phosphatase 111 IU/L (40-130); Blood Urea Nitrogen 13 mg/dL (8-23); Calcium 9.3 mg/dL (8.5-10.5); Carbon Dioxide 27 mmol/L (22-29); Chloride 103 mmol/L (98-107); Globulin 3.6 g/dL (1.3-4.6); Glucose 168 mg/dL (65-115); Magnesium 2.1 mg/dL (1.7-2.3); Osmolality Calculated 300 mOsm/kg (285-295); Phosphorus 3.2 mg/dL (2.5-4.5); Sodium 143 mmol/L (136-145); Total Bilirubin 0.3 mg/dL (0.15-1.2); Total Protein 6.7 g/dL (6.6-8.7)
[2022-04-24 03:21] LABS: Anion Gap 16.6 (5-19); Aspartate Amino Transferase 23 U/L (0-40); Potassium 3.6 mmol/L (3.5-5.1)
[2022-04-24 03:52] VITALS: PULSE 83
[2022-04-24 04:44] VITALS: BP 135/69; PULSE 85; RESP 20; TEMP 36.9; O2SAT 95
[2022-04-24 06:51] LABS: Glucose Point of Care 125 mg/dL (70-110)
[2022-04-24] MEDS: perflutren protein-a microsphr 0.22 mg/mL SDV 3 mL IV (08:01)
[2022-04-24 08:16] VITALS: BP 145/67; PULSE 88
[2022-04-24] MEDS: regadenoson 0.4 Mg/5 ml Syringe IVP (08:17)
--- NOTE | 2022-04-24 09:30 | NMCV_ITS ---
NM deangelo perf SPECT r/s* [id number] Junior Ciara Age: 82 Gender: M : 1940 Exam Date: 04/24/2022 07:16 Ordering Phys: Yoandy Rodriguez MD Technologist: ALFREDO Rainey Exam Location: [facility] Indications: CHEST PAIN STRESS TEST Please [facility] IMAGE PROTOCOL Rest/Stress 1 Lexiscan Day Radiopharmaceutical Dose (mCi) Administration Site Administered by Rest: Tc-99m 10.8 IV ALFREDO Murdock Sestamibi Stress:Tc-99m 32.9 IV ALFREDO Murdock Sestamibi Rest: 24-Apr-2022 60 Discovery 630 Stress: 24-Apr-2022 30 Discovery 630 0.4mg Lexiscan. Supine position only as patient was unable to lay prone. SPECT RESULTS Technical Quality: Excellent Raw Data Analysis: Normal Image Corrections: No attenuation or motion correction applied Summed Stress Score: 4 Summed Rest Score: 6 Summed Difference Score: 3 PERFUSION FINDINGS Small sized perfusion abnormality of mild severity of basal to mid inferolateral, mid inferior and apical septal wall on rest images with somewhat improved tracer uptake on stress images. Subtle reversibility noted in apical lateral and apical [place] on supine stress images. FUNCTIONAL RESULTS (calculated via Gated SPECT) Stress Image LV EF (%): 67 Stress EDV (mL):106 TID: 1.22 Stress ESV (mL):35 FUNCTIONAL FINDINGS: The left ventricle is normal in size. Transient Ischemia Dilatation of 1.2. There is normal left ventricular systolic function. The left ventricular ejection fraction is normal with a value of 67%. There is normal left ventricular wall thickening. Normal end-diastolic end-systolic volumes. IMPRESSIONS 1. Small sized paradoxical perfusion abnormality of mild severity of basal to mid inferolateral, mid inferior and apical septal and apical lateral [place]. These findings are suggestive of attenuation artifact. 2. Overall left ventricular systolic function is normal without regional wall motion abnormalities. 3. Transient ischemic dilation index mildly increased at 1.2. This may represent hypertensive response/subendocardial ischemia. 4. No EKG changes with Lexiscan infusion. Refer to separate report for details. Valery Albert MD (Electronically Signed) Final Date: 24 April 2022 12:39 S
--- NOTE | 2022-04-24 10:07 | PC.CHAP ---
Pastoral Care Encounter/Spiritual Assessment Type of Contact [] Declined belt picker visit [] Patient/Family/Request visit [] Outpatient visit [] Follow-up visit [] Physician referral [] Code/Alert [x] Routine visit [] Staff referral [] Actively dying [] Patient sleeping [] Family support [] [x] Out of room [] Palliative care [] [] Receiving care in room [] Pre-surgical visit [] Trauma [] Long length of stay [] ICU visit [] Other: Relational/Emotional Strength [] Patient feels connected with others/family/visitors/staff [] Distress [] Loneliness/isolation [] Abandonment Spirituality of Patient [] Person of Carolyn [] Attends Advent of their Carolyn [] Believes in Prayer [] Reads Bible or Yazidi materials [] There are Spiritual issues to be addressed Construction Worker Interventions [] Prayer [] Active listening [] Non-anxious presence [] Spiritual/emotional support [] Crisis/trauma care [] Spiritual counseling [] Bereavement support [] Provided bereavement packet [] Provided Bible/devotional materials [] Provided toy/stuffed animal, coloring book to patient or family member [] Provided Communion [] Anointing/[place] [] Salvation [] Completed spiritual assessment [] Other: Impact on Illness or Injury [] Angry [] Fearful [] Anxious [] Often cries [] Exhaustion [] Unable to work [] Unable to attend judaism [] Unable to walk/stand [] Unable to read [] Unable to drive [] Unable to eat/drink [] Unable to sleep [] Unable to be with family [] Patient intubated [] Other: Summary Time spent with patient
[2022-04-24] MEDS: allopurinol 300 mg Tablet 150 MG PO (10:24)
[2022-04-24] MEDS: potassium chloride ER 20 mEq Tablet PO (10:25)
[2022-04-24] MEDS: topiramate 100 mg Tablet PO (10:26)
[2022-04-24] MEDS: gabapentin 100 mg Capsule PO (10:26)
[2022-04-24] MEDS: atorvastatin 40 mg Tablet 20 MG PO (10:27)
[2022-04-24] MEDS: metoprolol tartrate 25 mg Tablet 12.5 MG PO (10:27)
[2022-04-24] MEDS: losartan 50 mg Tablet 100 MG PO (10:29)
[2022-04-24] MEDS: tamsulosin 0.4 mg Capsule PO (10:31)
[2022-04-24] MEDS: aspirin 81 mg EC Tablet PO (10:32)
[2022-04-24] MEDS: FUROsemide 40 mg Tablet PO (10:32)
[2022-04-24 11:05] LABS: Glucose Point of Care 147 mg/dL (70-110)
[2022-04-24] MEDS: ipratropium-albuterol 3 mL Neb INHALATION (11:19)
[2022-04-24 12:00] VITALS: BP 130/81; PULSE 70; RESP 16; TEMP 36.6; O2SAT 91
[2022-04-24 12:37] LABS: NT Pro B Type Natriuretic Pept 133 pg/mL (0-450)
--- NOTE | 2022-04-24 14:06 | PM.DCS ---
Discharge Providers Date of Admission: 04/23/22 20:31 Date of Discharge: April 24, 2022 Attending Provider at Admission: Yoandy Rodriguez MD Attending Provider at Discharge: Rashel Kendall MD Primary Care Provider: Tyler Rucker MD Diagnoses at Discharge Discharge Diagnosis (1) Chest pain: Status: Acute (2) Hypertension: Status: Acute Qualifiers: Hypertension type: essential hypertension Qualified Code(s): I10 - Essential (primary) hypertension (3) Diabetic peripheral neuropathy associated with type 2 diabetes mellitus: Status: Acute (4) PVD (peripheral vascular disease): Status: Acute (5) Dyslipidemia (high LDL; low HDL): Status: Acute (6) Type 2 diabetes mellitus: Status: Acute Reason for Visit Reason for Visit: Chest pains Hospital Course Hospital Course 82-year-old male who was admitted for work-up of chest pain. Stress test was unremarkable, his symptoms are atypical in nature which are likely related to left hemidiaphragm. He is being discharged in stable condition without change in medications. CTA chest ruled out PE. Physical Exam Narrative: No acute nontender abdomen Doing well on room air No active chest pain Nonfocal neuro exam S1, S2 No active chest pain Nonfocal neuro exam Discharge Data Studies Completed and Pending Completed Studies During Hospitalization Category Date Time Status CTA chest abdomen pelvis [CT angio chest abdomen pelvis Cat Scan 04/23/22 17:57 Completed ] Stat Sestamibi Stress Test Request Routine Exams 04/24/22 06:44 Completed XR chest 1V portable [id number] Stat Exams 04/23/22 17:21 Completed NM deangelo perf SPECT r/s* [id number] Routine Nuc Med 04/24/22 09:30 Completed CV. echo wo/w contrast [id number] Stat Ultrasound 04/23/22 21:37 Completed Pending at discharge Category Date Time Status Sestamibi Stress Test Request Routine Exams 04/23/22 22:38 Stop Req Complete Blood Count w/Auto AM LABS Lab 04/25/22 04:00 Ordered Complete Blood Count w/Auto AM LABS Lab 04/26/22 04:00 Ordered Comprehensive Metabolic Panel AM LABS Lab 04/25/22 04:00 Ordered Comprehensive Metabolic Panel AM LABS Lab 04/26/22 04:00 Ordered Magnesium AM LABS Lab 04/25/22 04:00 Ordered Magnesium AM LABS Lab 04/26/22 04:00 Ordered Phosphorus AM LABS Lab 04/25/22 04:00 Ordered Phosphorus AM LABS Lab 04/26/22 04:00 Ordered Radiology Impressions Chest X-Ray 04/23/22 17:21 IMPRESSION: No acute intracranial findings. Chest/Abdomen/Pelvis CTA 04/23/22 17:57 IMPRESSION: 1. Abdominal aorta intact, negative for acute inflammatory process in the abdomen or pelvis. 2. Cardiomegaly. 3. Coronary artery atherosclerotic calcifications. 4. Bibasilar atelectasis versus minimal infiltrate. 5. Left diaphragmatic eventration. 6. Left hip surgical hardware. 7. Prostate gland enlarged. Laboratory Results WBC 8.5 10^3/uL (4.0-10.0) 04/24/22 02:04 RBC 4.78 10^6/uL (4.1-5.3) 04/24/22 02:04 Hgb 14.2 g/dL (11.7-16.6) 04/24/22 02:04 Hct 46.6 % (42.0-52.0) 04/24/22 02:04 MCV 97.5 fl (80-94) H 04/24/22 02:04 MCH 29.7 pg (28.0-34.0) 04/24/22 02:04 MCHC 30.5 g/dL (30.0-36.0) 04/24/22 02:04 RDW 15.0 % (12.1-15.1) 04/24/22 02:04 Plt Count 249 10^3/cmm (130-400) 04/24/22 02:04 MPV 10.1 fL (7.4-10.4) 04/24/22 02:04 Neut % (Auto) 66.2 % 04/24/22 02:04 Lymph % (Auto) 22.0 % 04/24/22 02:04 Hitchcock % (Auto) 8.6 % 04/24/22 02:04 Eos % (Auto) 2.2 % 04/24/22 02:04 Baso % (Auto) 0.6 % 04/24/22 02:04 Neut # (Auto) 5.62 10^3/uL (1.8-7.7) 04/24/22 02:04 Lymph # (Auto) 1.9 10^3/uL (0.8-4.8) 04/24/22 02:04 Hitchcock # (Auto) 0.7 10^3/uL (0.2-0.9) 04/24/22 02:04 Eos # (Auto) 0.2 10^3/uL (0.0-0.8) 04/24/22 02:04 Baso # (Auto) 0.1 10^3/uL (0.0-0.1) 04/24/22 02:04 Nucleated RBC % (auto) 0 % 04/24/22 02:04 Nucleated RBCs # 0.0 /100WBC 04/24/22 02:04 Sodium 143 mmol/L (136-145) 04/24/22 02:04 Potassium 3.6 mmol/L (3.5-5.1) 04/24/22 02:04 Chloride 103 mmol/L (98-107) 04/24/22 02:04 Carbon Dioxide 27 mmol/L (22-29) 04/24/22 02:04 Anion Gap 16.6 (5-19) 04/24/22 02:04 BUN 13 mg/dL (8-23) 04/24/22 02:04 Creatinine 0.7 mg/dL (0.7-1.2) 04/24/22 02:04 GFR Calculation Not Reportable 04/24/22 02:04 Glucose 168 mg/dL (65-115) H 04/24/22 02:04 POC Glucose 147 mg/dL (70-110) H 04/24/22 11:02 Estimat Average Glucose 154 04/23/22 17:35 Hemoglobin A1c 7.0 % (4.0-6.0) H 04/23/22 17:35 Calculated Osmolality 300 mOsm/kg (285-295) H 04/24/22 02:04 Calcium 9.3 mg/dL (8.5-10.5) 04/24/22 02:04 Phosphorus 3.2 mg/dL (2.5-4.5) 04/24/22 02:04 Magnesium 2.1 mg/dL (1.7-2.3) 04/24/22 02:04 Total Bilirubin 0.3 mg/dL (0.15-1.2) 04/24/22 02:04 AST 23 U/L (0-40) 04/24/22 02:04 ALT 25 U/L (0-41) 04/24/22 02:04 Alkaline Phosphatase 111 IU/L (40-130) 04/24/22 02:04 Troponin T Baseline 12 ng/L (0-15) 04/23/22 17:35 Troponin T 120 Minute 19.74 ng/L (0-15) H 04/23/22 19:40 Delta Troponin T 7.74 ABS# (0-10) 04/23/22 19:40 Troponin T Hi Sens 6Hr 16.78 ng/L (0-15) H 04/24/22 02:04 Troponin T Hi Sens 6Hr Delta 4.78 ng/L (0-12) 04/24/22 02:04 NT-Pro-B Natriuret Pep 133 pg/mL (0-450) 04/24/22 02:04 Total Protein 6.7 g/dL (6.6-8.7) 04/24/22 02:04 Albumin 3.1 g/dL (3.5-5.2) L 04/24/22 02:04 Globulin 3.6 g/dL (1.3-4.6) 04/24/22 02:04 TSH 2.07 uIU/mL (0.27-4.20) 04/23/22 17:35 Vitals Last Vital Signs Temp 97.9 F 04/24/22 12:00 Pulse 70 04/24/22 12:00 Resp 16 04/24/22 12:00 BP 130/81 04/24/22 12:00 Pulse Ox 91 04/24/22 12:00 O2 Del Method 04/24/22 12:00 Discharge Plan Discharge Patient Disposition: Home Condition: Stable Prescriptions: Continued topiramate [Topamax] 100 mg tablet 100 mg PO DAILY potassium chloride [Klor-Con M20] 20 mEq tablet,ER particles/crystals 20 meq PO DAILY guaifenesin [Mucinex] 600 mg tablet extended release 12hr 600 mg PO BID losartan 100 mg tablet 100 mg PO DAILY tamsulosin 0.4 mg capsule 0.4 mg PO DAILY omeprazole 20 mg capsule,delayed release(DR/EC) 20 mg PO DAILY furosemide [Lasix] 40 mg tablet 40 mg PO DAILY simvastatin 20 mg tablet 20 mg PO DAILY allopurinol 300 mg tablet 150 mg PO DAILY (DME) Diabetic shoes Qty: 1 0RF Rx Instructions: As directed (DME) limpadeama decongestion to the lower extremities See Rx Instructions .Route .MEDSUPPLY Qty: 1 0RF Rx Instructions: As directed by physical therapy mupirocin 2 % ointment 1 applic topical BID Qty: 22 1RF Rx Instructions: Apply to affected area until healed clindamycin HCl 300 mg capsule 600 mg PO QID 7 Days Qty: 56 0RF gabapentin 100 mg capsule 100 mg PO TID Qty: 90 3RF metoprolol tartrate 25 mg tablet 12.5 mg PO BID Qty: 90 2RF Discharge Orders: Discharge Order (Routine); Ordered 04/24/22 Ordered By: Rashel Kendall Referrals: Tyler Rucker MD [Primary Care Provider] - Patient Instructions: Opioid Safety Discharge Attestations Time Spent in Discharge Care*: less than 30 min Quality Metrics Clinical Quality Measures [ No reported AMI, CVA or VTE this stay] Coding Level of Care Code Acute Chg FW DC note Diagnoses Chest pain R07.9 Hypertension I10 Hypertension type: essential hypertension Diabetic peripheral neuropathy associated with type 2 diabetes mellitus E11.42 PVD (peripheral vascular disease) I73.9 Dyslipidemia (high LDL; low HDL) E78.5 Type 2 diabetes mellitus E11.9
[2022-04-24 14:27] VITALS: BP 130/81; PULSE 70; RESP 16; TEMP 36.6; O2SAT 91
--- NOTE | 2022-04-24 14:38 | PC.OT ---
OT evaluation not performed due to scheduled patient discharge
== END 2022-04-24 15:07 | disposition home or self-care (01) ==
LOC: ER 18:02 → MEDSURG 21:58
PROVIDERS: Admitting Provider Family Medicine; Emergency Provider Emergency Medicine; PCP Orthopaedic Surgery; Visit Provider Internal Medicine
DX: R07.9 Chest pain, unspecified (principal); I10 Essential (primary) hypertension; E11.42 Type 2 diabetes mellitus with diabetic polyneuropathy; I73.9 Peripheral vascular disease, unspecified; E78.5 Hyperlipidemia, unspecified; I44.0 Atrioventricular block, first degree; J44.9 Chronic obstructive pulmonary disease, unspecified; K21.9 Gastro-esophageal reflux disease without esophagitis; Z66 Do not resuscitate; Z79.82 Long term (current) use of aspirin; N40.0 Benign prostatic hyperplasia without lower urinary tract symptoms
CPT/HCPCS: 36415; 36416; 71045; 71275; 74174; 78452; 80048; 80053; 82962; 83036; 83735; 83880; 84100; 84443; 84484; 85025; 93005; 93017; 93306; 94640; 94664; 96372; 97116; 97161; 99285; A9500; C8929; C9113; G0378; J1650; J2785; Q9956; Q9967

== ENCOUNTER 2022-04-30 12:01 | Outpatient (CLI) | payer MEDICARE, SELFPAY ==
--- NOTE | 2022-04-30 13:45 | USCV_ITS ---
Junior Ciara Age: 82 Gender: M : 1940 Exam Date: 04/30/2022 12:26 Ordering Phys: Skye Hassan DO Technologist: ELIEL Exam Location: [facility] [place] Indication: HISTORY: PROCEDURES: FINDINGS: No significant reflux were noted in the deep veins on the right side The right greater saphenous vein was not visualized below the mid level- too small No significant reflux was noted in the greater saphenous vein on the right side CONCLUSIONS 1. No evidence of DVT. 2. No significant reflux in the deep veins on the right leg. 3. No significant reflux were noted in the greater saphenous vein 4. The greater saphenous vein was not visualized below the mid segment on the right side. Dr Aysha Jacobo MD [facility] (Electronically Signed) Final Date: 30 April 2022 23:25 S
== END 2022-04-30 12:02 | disposition home or self-care (01) ==
LOC: RAD 12:03
PROVIDERS: PCP Orthopaedic Surgery; Visit Provider Emergency Medicine
DX: E11.622 Type 2 diabetes mellitus with other skin ulcer (principal); L98.499 Non-pressure chronic ulcer of skin of other sites with unspecified severity; M79.604 Pain in right leg
CPT/HCPCS: 93971

== ENCOUNTER → 2022-05-01 10:44 | Outpatient (BNVA) | payer MEDICARE, SELFPAY | PROVIDERS: PCP Orthopaedic Surgery; Visit Provider Podiatrist Foot & Ankle Surgery | DX: E11.8 Type 2 diabetes mellitus with unspecified complications (principal); E11.42 Type 2 diabetes mellitus with diabetic polyneuropathy; L60.3 Nail dystrophy; I73.9 Peripheral vascular disease, unspecified; R22.42 Localized swelling, mass and lump, left lower limb; I89.0 Lymphedema, not elsewhere classified | CPT/HCPCS: 11721 ==

== ENCOUNTER 2022-08-04 08:36 | Emergency (ER) | payer MEDICARE, SELFPAY ==
[2022-08-04 08:44] VITALS: BP 157/81; PULSE 81; RESP 16; TEMP 36.9; O2SAT 96; BMI 37.5
--- NOTE | 2022-08-04 09:00 | ED_ITS ---
HPI - Male Genitourinary General: Chief complaint: Urogenital-Male Stated complaint: Unable to urinate Time Seen by Provider: 08/04/22 08:52 Source: patient and family () Mode of arrival: ambulatory Limitations: no limitations History of Present Illness: Patient with complaints of dysphagia difficulty emptying bladder for the past 12 hours or so. Patient states he is been only dribbling this morning. States his bladder is distended and mildly painful. Denies any dysuria or hematuria or fever. He states 3 days ago he had Botox injection in the bladder by a urologist at hospital in [facility]. He states he had brief hematuria after the injections but that has since cleared. He was placed on Cipro 500 mg twice a day for 5 days and also given hydrocodone for any pain. He states he has benign prostatic hypertrophy. He denies any prostate cancer history. Denies any flank pain. Quality: aching Relieving factors: urination Exacerbating factors: other (Inability to empty the bladder.) Associated symptoms: Deny dysuria, hematuria, nausea or vomiting Review of Systems Const: Denies: fever(s) or chills Eyes: Denies: change in vision ENMT: Denies: throat pain Card: Denies: chest pain or palpitations Resp: Denies: dyspnea or wheezing GI: Reports: abdominal pain; Denies: nausea or vomiting : Reports: difficulty urinating, urinary urgency, urinary hesitancy, urinary dribbling and difficulty starting urination; Denies: flank pain, dysuria or hematuria Musc: Denies: neck pain or back pain Skin/Breast: Denies: rash or pruritus Neuro: Denies: headache(s) or numbness in extremities Psych: Denies: anxiety Juanito/Lymph: Denies: enlarged lymph nodes PFS ED PFSH: Medical History Arrhythmia Atherosclerosis Bilateral occipital neuralgia Chest pain COPD (chronic obstructive pulmonary disease) 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 Some nonspe cific T wave changes. normal QRS duration. Dyslipidemia (high LDL; low HDL) Elevated troponin GERD (gastroesophageal reflux disease) Gout Hypertension Leg swelling Peripheral neuropathy PVD (peripheral vascular disease) Type 2 diabetes mellitus Surgical History History of ankle surgery History of surgery on arm History of total left hip replacement Hx of cataract extraction Family History Brother Cancer Lung disease Father Cancer Chronic kidney disease (CKD) Grandfather Cancer Lung disease Mother Dementia Diabetes Family/Other Diabetes Chronic kidney disease (CKD) Other CAD (coronary artery disease) Denies family history of Clotting disorder Suicide Anesthesia complication Bleeding disorder Stroke Social History Smoking and tobacco status: former smoker Alcohol intake: never Supplemental [facility] Information: Patient had recent Botox injection in the bladder at [employer] 3 days ago. Physical Exam Const: COMMON NORMALS: no acute distress, patient oriented x3, alert and well nourished GENERAL APPEARANCE: cooperative OTHER: Obese HENMT: COMMON NORMALS: normocephalic and atraumatic HEAD & SCALP: normocephalic and atraumatic Eye: COMMON NORMALS: EOMs intact bilaterally Neck/C-Spine: COMMON NORMALS: full ROM, no lymphadenopathy, supple and no JVD Lymph: LYMPHATIC: no lymphadenopathy noted Chest: COMMONS NORMALS: normal inspection of the chest and normal palpation of entire chest wall Resp: COMMON NORMALS: normal respiratory effort, No retractions, No use of accessory muscles and clear to auscultation bilaterally AUSCULTATION: clear to auscultation bilaterally Cardio: COMMON NORMALS: no JVD, regular rate, regular rhythm and Peripheral pulses 2+ throughout RATE: regular rate RHYTHM: regular rhythm PERIPHERAL PULSES: Peripheral pulses 2+ throughout OTHER: Mild suprapubic abdominal tenderness. Bladder does appear to be distended to the umbilicus. No bruits. No pulsatile masses. GI: COMMON NORMALS: Soft to palpation PALPATION: Yes Soft to palpation : COMMON NORMALS: Yes no CVA tenderness BLADDER/KIDNEY EXAM: Yes no CVA tenderness Back/Pelvis: COMMON NORMALS: no CVA tenderness Extremity: COMMON NORMALS: normal to inspection and full ROM Neuro: COMMON NORMALS: patient oriented x3, CN's II-XII intact bilaterally, moves all extremities, no focal motor deficits and no sensory deficits noted SENSORIUM/ORIENTATION: Yes alert Psych: COMMON NORMALS: mental status grossly normal, Normal thought process present, cooperative, normal affect and speech normal SPEECH: Yes normal speech THOUGHT PROCESS: Normal thought process present Skin: COMMON NORMALS: no rashes or lesions noted GENERAL SKIN EXAM: no rashes or lesions noted Course Vital Signs: Vital signs: Vital Signs Temperature 98.5 F 08/04/22 09:18 Pulse Rate 81 08/04/22 09:18 Respiratory Rate 16 08/04/22 09:18 Blood Pressure 157/81 08/04/22 09:18 Pulse Oximetry 96 08/04/22 09:18 Oxygen Delivery Me thod 08/04/22 09:18 MDM - Male Medical Decision Making Urinary retention. BPH Patient was approximately 370 cc of urine by bladder scan. Patient opted for Hahn catheter placement. Will place patient with coude catheter with leg bag. He will follow-up with his urologist on Saturday. 0935: Patient with approximately 350 cc of urine output after Hahn catheter placed. Patient states pain has now resolved. States he feels much better. 1034: Patient feeling well. He has no discomfort. Patient does have prescription for Cipro that he will complete. Lab Data 08/04/22 09:47 08/04/22 09:47 Laboratory Results WBC 7.2 10^3/uL (4.0-10.0) 08/04/22 09:47 RBC 4.65 10^6/uL (4.1-5.3) 08/04/22 09:47 Hgb 14.2 g/dL (11.7-16.6) 08/04/22 09:47 Hct 44.5 % (42.0-52.0) 08/04/22 09:47 MCV 95.7 fl (80-94) H 08/04/22 09:47 MCH 30.5 pg (28.0-34.0) 08/04/22 09:47 MCHC 31.9 g/dL (30.0-36.0) 08/04/22 09:47 RDW 14.8 % (12.1-15.1) 08/04/22 09:47 Plt Count 275 10^3/cmm (130-400) 08/04/22 09:47 MPV 9.6 fL (7.4-10.4) 08/04/22 09:47 Neut % (Auto) 70.8 % 08/04/22 09:47 Lymph % (Auto) 18.4 % 08/04/22 09:47 [place] % (Auto) 6.9 % 08/04/22 09:47 Eos % (Auto) 2.8 % 08/04/22 09:47 Baso % (Auto) 0.7 % 08/04/22 09:47 Neut # (Auto) 5.12 10^3/uL (1.8-7.7) 08/04/22 09:47 Lymph # (Auto) 1.3 10^3/uL (0.8-4.8) 08/04/22 09:47 [place] # (Auto) 0.5 10^3/uL (0.2-0.9) 08/04/22 09:47 Eos # (Auto) 0.2 10^3/uL (0.0-0.8) 08/04/22 09:47 Baso # (Auto) 0.1 10^3/uL (0.0-0.1) 08/04/22 09:47 Nucleated RBC % (auto) 0 % 08/04/22 09:47 Nucleated RBCs # 0.0 /100WBC 08/04/22 09:47 Sodium 137 mmol/L (136-145) 08/04/22 09:47 Potassium 3.8 mmol/L (3.5-5.1) 08/04/22 09:47 Chloride 100 mmol/L (98-107) 08/04/22 09:47 Carbon Dioxide 25 mmol/L (22-29) 08/04/22 09:47 Anion Gap 15.8 (5-19) 08/04/22 09:47 BUN 15 mg/dL (8-23) 08/04/22 09:47 Creatinine 0.7 mg/dL (0.7-1.2) 08/04/22 09:47 GFR Calculation Not Reportable 08/04/22 09:47 Glucose 136 mg/dL (65-115) H 08/04/22 09:47 Calculated Osmolality 287 mOsm/kg (285-295) 08/04/22 09:47 Calcium 9.4 mg/dL (8.5-10.5) 08/04/22 09:47 Urine Color Yellow (Yellow) 08/04/22 09:31 Urine Appearance Clear (CLEAR) 08/04/22 09:31 Urine pH 5 (5-7) 08/04/22 09:31 Ur Specific [place] 1.015 (1.005-1.030) 08/04/22 09:31 Urine Protein Neg (Negative) 08/04/22 09:31 Urine Glucose (UA) 4+ (Normal) H 08/04/22 09:31 Urine Ketones Negative (Negative) 08/04/22 09:31 Urine Blood 2+ (Negative) H 08/04/22 09:31 Urine Nitrate Negative (Negative) 08/04/22 09:31 Urine Bilirubin Neg (Negative) 08/04/22 09:31 Urine Urobilinogen Norm mg/dL (Negative) 08/04/22 09:31 Ur Leukocyte Esterase Negative (Negative) 08/04/22 09:31 Urine RBC 5-10 /hpf (0-2) H 08/04/22 09:31 Urine WBC 0-4 /hpf (0-5) H 08/04/22 09:31 Ur Squamous Epith Cells 0-4 /hpf (0-5) H 08/04/22 09:31 Amorphous Sediment Not Reportable 08/04/22 09:31 Urine Bacteria Trace /hpf (NONE) 08/04/22 09:31 Discharge Plan Discharge Patient Disposition: Home Clinical Impression: Acute retention of urine Condition: Stable Prescriptions: No Action topiramate [Topamax] 100 mg tablet 100 mg PO DAILY potassium chloride [Klor-Con M20] 20 mEq tablet,ER particles/crystals 20 meq PO DAILY guaifenesin [Mucinex] 600 mg tablet extended release 12hr 600 mg PO BID losartan 100 mg tablet 100 mg PO DAILY tamsulosin 0.4 mg capsule 0.4 mg PO DAILY omeprazole 20 mg capsule,delayed release(DR/EC) 20 mg PO DAILY furosemide [Lasix] 40 mg tablet 40 mg PO DAILY simvastatin 20 mg tablet 20 mg PO DAILY allopurinol 300 mg tablet 150 mg PO DAILY (DME) Diabetic shoes Qty: 1 0RF Rx Instructions: As directed (DME) limpadeama decongestion to the lower extremities See Rx Instructions .Route .MEDSUPPLY Qty: 1 0RF Rx Instructions: As directed by physical therapy mupirocin 2 % ointment 1 applic topical BID Qty: 22 1RF Rx Instructions: Apply to affected area until healed clindamycin HCl 300 mg capsule 600 mg PO QID 7 Days Qty: 56 0RF gabapentin 100 mg capsule 100 mg PO TID Qty: 90 3RF metoprolol tartrate 25 mg tablet 12.5 mg PO BID Qty: 90 2RF Discharge Orders: Discharge ED (Routine); Ordered 08/04/22 Ordered By: Hieu Villegas Referrals: Gustavo Meyer MD [Primary Care Provider] - Discharge Diet: Advance as tolerated Discharge Activity: Increase activity as tolerated Patient Instructions: Urinary Retention in Men (ED), Hahn Catheter Placement and Care (ED) Activity Restrictions/Additional Instructions: Drink plenty water. LOCKER ATTENDANT Hahn catheter as needed. Follow-up with your urologist in [employer] on Saturday to let them know you had a Hahn catheter placed this w kend. Hahn catheter likely will be removed this coming week. Continue your home medications. Continue Cipro antibiotic. Coding Level of Care Code ED Chain Carrier for Gregor Fwjaime History Comprehensive Exam Comprehensive Medical Decision Making Moderate Complexity
[2022-08-04 09:18] VITALS: BP 157/81; PULSE 81; RESP 16; TEMP 36.9; O2SAT 96
[2022-08-04 09:58] LABS: Basophils # 0.1 10^3/uL (0.0-0.1); Basophils % 0.7 %; Eosinophils # 0.2 10^3/uL (0.0-0.8); Eosinophils % 2.8 %; Hematocrit 44.5 % (42.0-52.0); Hemoglobin 14.2 g/dL (11.7-16.6); Lymphocytes # 1.3 10^3/uL (0.8-4.8); Lymphocytes % 18.4 %; Mean Corpuscular HGB Conc 31.9 g/dL (30.0-36.0); Mean Corpuscular Hemoglobin 30.5 pg (28.0-34.0); Mean Corpuscular Volume 95.7 fl (80-94); Mean Platelet Volume 9.6 fL (7.4-10.4); Monocytes # 0.5 10^3/uL (0.2-0.9); Monocytes % 6.9 %; Neutrophils # 5.12 10^3/uL (1.8-7.7); Neutrophils % 70.8 %; Nucleated Red Blood Cells % 0 %; Platelet Count 275 10^3/cmm (130-400); Red Blood Count 4.65 10^6/uL (4.1-5.3); Red Cell Distribution Width 14.8 % (12.1-15.1); White Blood Count 7.2 10^3/uL (4.0-10.0)
[2022-08-04 10:17] LABS: Blood Urine 2+ (Negative); Glucose Urine UA 4+ (Normal); Ketones Urine Negative (Negative); Nitrate Urine Negative (Negative); Protein Urine Neg (Negative); Specific Gravity, Urine 1.015 (1.005-1.030); Urine Appearance Clear (CLEAR); Urine Color Yellow (Yellow); pH Urine 5 (5-7)
[2022-08-04 10:18] LABS: Add Urine Culture? No; Bacteria Urine TRACE /hpf; Bilirubin Urine Neg (Negative); Leukocyte Esterase Urine Negative (Negative); Squamous Epithelial Cell Urine 0-4 /hpf (0-5); Urobilinogen Urine Norm (Negative); WBC Urine 0-4 /hpf (0-5)
[2022-08-04 10:29] LABS: Anion Gap 15.8 (5-19); Blood Urea Nitrogen 15 mg/dL (8-23); Calcium 9.4 mg/dL (8.5-10.5); Carbon Dioxide 25 mmol/L (22-29); Chloride 100 mmol/L (98-107); Glucose 136 mg/dL (65-115); Osmolality Calculated 287 mOsm/kg (285-295); Potassium 3.8 mmol/L (3.5-5.1); Sodium 137 mmol/L (136-145)
== END 2022-08-04 10:56 | disposition home or self-care (01) ==
PROVIDERS: Emergency Provider Family Medicine; PCP Internal Medicine
DX: R33.9 Retention of urine, unspecified (principal); Z87.891 Personal history of nicotine dependence; J44.9 Chronic obstructive pulmonary disease, unspecified; E11.9 Type 2 diabetes mellitus without complications; E78.5 Hyperlipidemia, unspecified; I10 Essential (primary) hypertension
CPT/HCPCS: 36415; 51702; 51798; 80048; 81001; 85025; 87086; 99283

== ENCOUNTER → 2022-09-12 08:15 | Outpatient (BNVA) | payer MEDICARE, SELFPAY | PROVIDERS: PCP Internal Medicine; Visit Provider Podiatrist Foot & Ankle Surgery | DX: E11.42 Type 2 diabetes mellitus with diabetic polyneuropathy (principal); L60.3 Nail dystrophy; I73.9 Peripheral vascular disease, unspecified; R22.42 Localized swelling, mass and lump, left lower limb; I89.0 Lymphedema, not elsewhere classified | CPT/HCPCS: 11721; 99214 ==

== ENCOUNTER → 2022-09-13 13:01 | Outpatient (BNVA) | payer MEDICARE, SELFPAY | PROVIDERS: PCP Internal Medicine; Visit Provider Surgery | DX: E11.622 Type 2 diabetes mellitus with other skin ulcer (principal); L97.821 Non-pressure chronic ulcer of other part of left lower leg limited to breakdown of skin | CPT/HCPCS: 97597; 99213 ==

== ENCOUNTER → 2022-09-18 13:26 | Outpatient (BNVA) | payer MEDICARE, SELFPAY | PROVIDERS: PCP Internal Medicine; Visit Provider Nurse Practitioner Family | DX: I10 Essential (primary) hypertension (principal); I49.9 Cardiac arrhythmia, unspecified; R06.02 Shortness of breath; J44.9 Chronic obstructive pulmonary disease, unspecified; J98.4 Other disorders of lung; J22 Unspecified acute lower respiratory infection; Z87.891 Personal history of nicotine dependence | CPT/HCPCS: 29581; 99204; 99214; A6210 ==

== ENCOUNTER 2022-09-22 10:54 | Emergency (ER) | payer MEDICARE, SELFPAY ==
[2022-09-22 10:55] VITALS: BP 136/84; PULSE 91; RESP 14; O2SAT 94
--- NOTE | 2022-09-22 11:05 | XRR_ITS ---
PROCEDURE INFORMATION: Exam: XR Right Knee Exam date and time: 09/22/2022 11:17 AM Age: 82 years old Clinical indication: Injury or trauma; Fall; Blunt trauma; Knee; Right; Additional info: Fall with knee pain TECHNIQUE: Imaging protocol: Radiologic exam of the Right knee. Views: 3 views. COMPARISON: No relevant prior studies available. FINDINGS: Bones/joints: Negative for acute bony abnormality Soft tissues: Unremarkable XR/XR knee RT 3V* [id number] IMPRESSION: No acute findings.
--- NOTE | 2022-09-22 11:05 | XRR_ITS ---
PROCEDURE INFORMATION: Exam: XR Right Shoulder Exam date and time: 09/22/2022 11:21 AM Age: 82 years old Clinical indication: Injury or trauma; Fall; Blunt trauma (contusions or hematomas); Shoulder; Right; Additional info: Fall with shoulder pain TECHNIQUE: Imaging protocol: Radiologic exam of the Right shoulder. Views: 2 or more views. COMPARISON: CR (CHEST, ) 04/23/2022 5:41 PM FINDINGS: Bones/joints: Negative for acute bony abnormality Soft tissues: Normal. XR/XR shoulder RT min 2V* [id number] IMPRESSION: No acute findings.
--- NOTE | 2022-09-22 12:14 | ED_ITS ---
HPI - Fall General: Chief Complaint: Fall Stated Complaint: RIGHT KNEE PAIN S/P FALL Time Seen by Provider: 09/22/22 11:00 History of Present Illness: Patient is in today for right knee pain and right shoulder pain. He reports that yesterday he was walking with his walker and he tripped and fell onto his right knee and hit his right shoulder. He reports that he was still able to go to [place] and do all of his doctors appointments yesterday but today he woke up and the knee was swollen and he could not bear weight on it. He reports that when he fell he did not hit his head and he did not have a loss of consciousness. 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 Some nonspecific T wave changes. normal QRS duration. Dyslipidemia (high LDL; low HDL) Elevated troponin GERD (gastroesophageal reflux disease) Gout Hypertension Leg swelling Peripheral neuropathy PVD (peripheral vascular disease) Type 2 diabetes mellitus Surgical History History of ankle surgery History of surgery on arm History of total left hip replacement Hx of cataract extraction Family History Brother Cancer Lung disease Father Cancer Chronic kidney disease (CKD) Grandfather Cancer Lung disease Mother Dementia Diabetes Family/Other Diabetes Chronic kidney disease (CKD) Other CAD (coronary artery disease) Denies family history of Clotting disorder Suicide Anesthesia complication Bleeding disorder Stroke Social History Smoking and tobacco status: former smoker Quit status (tobacco): has quit using tobacco Year quit tobacco: 1999 Former quit date comment: 2 ppd x 45 years Alcohol intake: never Physical Exam Const: COMMON NORMALS: no acute distress, patient oriented x3 and alert Neck/C-Spine: COMMON NORMALS: no JVD Resp: COMMON NORMALS: normal respiratory effort, No use of accessory muscles and clear to auscultation bilaterally AUSCULTATION: clear to auscultation bilaterally Cardio: COMMON NORMALS: no JVD, regular rate, regular rhythm, S1 normal heart sound present and S2 normal heart sound present RATE: regular rate RHYTHM: regular rhythm HEART SOUNDS: S1 normal heart sound present and S2 normal heart sound present : OTHER: Hahn catheter in place Extremity: NARRATIVE EXTREMITY EXAM: There is some tenderness and swelling about the right anterior and medial knee. There is tenderness to palpation medial and collateral ligaments. Patient is able to flex and extend the knee. He has pain with weightbearing. Tenderness to palpation right anterior shoulder. No obvious bony or soft tissue deformity appreciated. Patient is able to laterally abduct to shoulder height but not beyond. Passive abduction is intact. CSM to distal hand is intact Neuro: COMMON NORMALS: patient oriented x3 SENSORIUM/ORIENTATION: Yes alert Course Vital Signs: Vital signs: Vital Signs Pulse Rate 91 09/22/22 10:55 Respiratory Rate 14 09/22/22 10:55 Blood Pressure 136/84 09/22/22 10:55 Pulse Oximetry 94 09/22/22 10:55 Oxygen Delivery Me thod 09/22/22 10:55 MDM - Fall Medical Decision Making Consider contusion of shoulder and knee, consider fracture shoulder and the, consider strain/sprain knee X-ray right knee 3 view wet read shows no acute osseous deformities osteoarthritis appreciated. X-ray 3 view shoulder right shows no acute osseous deformity Radiologist read knee and shoulder?no acute findings Full treat patient with conservative treatment. Emil wrap to knee. Advised him to ice, rest, elevate the extremity at home. Patient has an allergy to morphine and sulfa but cannot tolerate tramadol that he already has at home. I discussed the use of Tylenol arthritis with him. Follow-up with primary care provider as needed. Return to ER for new or worsening symptoms Lab Data Radiology Impressions Knee X-Ray 09/22/22 11:05 IMPRESSION: No acute findings. Shoulder X-Ray 09/22/22 11:05 IMPRESSION: No acute findings. Discharge Plan Discharge Patient Disposition: Home Clinical Impression: Contusion of right shoulder Knee MCL sprain Qualifiers: Encounter type: initial encounter Laterality: right Qualified Code(s): S83.411A - Sprain of medial collateral ligament of right knee, initial encounter Condition: Stable Prescriptions: No Action topiramate [Topamax] 100 mg tablet 100 mg PO DAILY potassium chloride [Klor-Con M20] 20 mEq tablet,ER particles/crystals 20 meq PO DAILY guaifenesin [Mucinex] 600 mg tablet extended release 12hr 600 mg PO BID losartan 100 mg tablet 100 mg PO DAILY tamsulosin 0.4 mg capsule 0.4 mg PO DAILY omeprazole 20 mg capsule,delayed release(DR/EC) 20 mg PO DAILY furosemide [Lasix] 40 mg tablet 40 mg PO DAILY simvastatin 20 mg tablet 20 mg PO DAILY allopurinol 300 mg tablet 150 mg PO DAILY (DME) Diabetic shoes Qty: 1 0RF Rx Instructions: As directed (DME) limpadeama decongestion to the lower extremities See Rx Instructions .Route .MEDSUPPLY Qty: 1 0RF Rx Instructions: As directed by physical therapy mupirocin 2 % ointment 1 applic topical BID Qty: 22 1RF Rx Instructions: Apply to affected area until healed (DME) Diabetic Shoes with 3 pairs of inserts See Rx Instructions .Route .MEDSUPPLY Qty: 1 0RF Rx Instructions: As directed by [facility] levofloxacin 500 mg tablet 500 mg PO DAILY Qty: 5 0RF fluticasone propion-salmeterol [Advair Diskus] 500-50 mcg/dose blister with device 1 inh inhalation BID Qty: 60 3RF clindamycin HCl 300 mg capsule 300 mg PO Q8H Qty: 21 0RF gabapentin 100 mg capsule 100 mg PO TID Qty: 90 3RF metoprolol tartrate 25 mg tablet 12.5 mg PO BID Qty: 90 2RF Discharge Orders: Discharge ED (Routine); Ordered 09/22/22 Ordered By: Pallavi Glover Referrals: Gustavo Meyer MD [Primary Care Provider] - Discharge Diet: Usual diet Discharge Activity: Increase activity as tolerated Patient Instructions: Contusion, Knee Sprain (ED) Activity Restrictions/Additional Instructions: I recommend conservative treatment at home including ice, rest, elevation of the extremity. Emil wrap as needed. Follow-up with primary care provider as needed. Return to the ER for new or worsening symptoms. Coding Level of Care Code ED Passenger Service Representative for Gregor Mcallister
== END 2022-09-22 12:41 | disposition home or self-care (01) ==
PROVIDERS: Emergency Provider Nurse Practitioner Family; PCP Internal Medicine
DX: S83.411A Sprain of medial collateral ligament of right knee, initial encounter (principal); S40.011A Contusion of right shoulder, initial encounter; Z87.891 Personal history of nicotine dependence; E11.9 Type 2 diabetes mellitus without complications; J44.9 Chronic obstructive pulmonary disease, unspecified; E78.5 Hyperlipidemia, unspecified; I10 Essential (primary) hypertension; W01.0XXA Fall on same level from slipping, tripping and stumbling without subsequent striking against object, initial encounter
CPT/HCPCS: 73030; 73562; 99283

== ENCOUNTER → 2022-09-26 12:58 | Outpatient (BNVA) | payer MEDICARE, SELFPAY | PROVIDERS: PCP Internal Medicine; Visit Provider Thoracic Surgery (Cardiothoracic Vascular Surgery) | DX: Z09 Encounter for follow-up examination after completed treatment for conditions other than malignant neoplasm (principal) | CPT/HCPCS: 99212 ==

== ENCOUNTER 2022-11-20 18:43 | Emergency (ER) | payer MEDICARE, SELFPAY ==
[2022-11-20 18:44] VITALS: BP 161/112; PULSE 106; RESP 18; TEMP 37; O2SAT 93; BMI 39.5
--- NOTE | 2022-11-20 18:59 | ED_ITS ---
HPI - Male Genitourinary General: Chief complaint: Urogenital-Male Stated complaint: urinary retention Time Seen by Provider: 11/20/22 18:43 Source: patient and EMS Mode of arrival: EMS Limitations: no limitations History of Present Illness: 82-year-old male states he had a Hahn in for 4 months and saw his urologist today and had the Hahn pulled states around noon. He states he has not been able to urinate since then's been having severe lower abdominal pain. He states it is a cramping pain he rated a 7 out of 10 he denies any worsening proving factors denies any vomiting or diarrhea. Associated symptoms: Deny dysuria Review of Systems Const: Denies: fever(s), chills, body aches or change in appetite Eyes: Denies: blurry vision or eye discomfort ENMT: Denies: throat pain or dental pain Card: Denies: chest pain Resp: Denies: dyspnea GI: Reports: abdominal pain : Reports: difficulty urinating; Denies: dysuria Musc: Denies: neck pain or back pain Skin/Breast: Denies: rash Neuro: Denies: headache(s) Psych: Denies: depression Juanito/Lymph: Denies: easy bruising All/Imm: Denies: urticaria PFSH ED PFSH: Medical History Arrhythmia Atherosclerosis Bilateral occipital neuralgia Chest pain COPD (chronic obstructive pulmonary disease) 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 Some nonspecific T wave changes. normal QRS duration. Dyslipidemia (high LDL; low HDL) Elevated troponin GERD (gastroesophageal reflux disease) Gout Hypertension Leg swelling Peripheral neuropathy PVD (peripheral vascular disease) Type 2 diabetes mellitus Surgical History History of ankle surgery History of surgery on arm History of total left hip replacement Hx of cataract extraction Family History Brother Cancer Lung disease Father Cancer Chronic kidney disease (CKD) Grandfather Cancer Lung disease Mother Dementia Diabetes Family/Other Diabetes Chronic kidney disease (CKD) Other CAD (coronary artery disease) Denies family history of Clotting disorder Suicide Anesthesia complication Bleeding disorder Stroke Social History Smoking and tobacco status: former smoker Quit status (tobacco): has quit using tobacco Year quit tobacco: 1999 Former quit date comment: 2 ppd x 45 years Alcohol intake: never Physical Exam Const: COMMON NORMALS: no acute distress, patient oriented x3 and healthy appearing HENMT: COMMON NORMALS: normocephalic and atraumatic HEAD & SCALP: normocephalic and atraumatic Eye: COMMON NORMALS: Equal, round and reactive pupils present and EOMs intact bilaterally PUPIL: Yes Equal, round and reactive pupils present Neck/C-Spine: COMMON NORMALS: full ROM and supple Chest: COMMONS NORMALS: normal inspection of the chest and normal palpation of entire chest wall Resp: COMMON NORMALS: normal respiratory effort, No retractions, No use of accessory muscles and clear to auscultation bilaterally AUSCULTATION: clear to auscultation bilaterally Cardio: COMMON NORMALS: regular rate, regular rhythm and No murmurs present (Cardio) RATE: regular rate RHYTHM: regular rhythm GI: COMMON NORMALS: Normal to inspection, nondistended, normoactive bowel soun ds present, Soft to palpation, non-tender and no masses PALPATION: Yes Soft to palpation Extremity: COMMON NORMALS: normal to inspection and full ROM Neuro: COMMON NORMALS: patient oriented x3, moves all extremities and no focal motor deficits Psych: COMMON NORMALS: mental status grossly normal, Normal thought process present and cooperative THOUGHT PROCESS: Normal thought process present Skin: COMMON NORMALS: no rashes or lesions noted and no wounds GENERAL SKIN EXAM: no rashes or lesions noted Course Vital Signs: Vital signs: Vital Signs Temperature 98.6 F 11/20/22 18:44 Pulse Rate 98 11/20/22 19:29 Respiratory Rate 16 11/20/22 19:29 Blood Pressure 148/82 11/20/22 19:29 Pulse Oximetry 98 11/20/22 19:29 Oxygen Delivery Me thod 11/20/22 18:44 MDM - Male Medical Decision Making 82-year-old male who presents with urinary retention did place a Hahn his symptoms are resolved we will leave Hahn in with a leg bag he is to follow back up with his urologist return if worsening he understands agrees to plan. Discharge Plan Discharge Patient Disposition: Home Clinical Impression: Acute retention of urine Condition: Stable Prescriptions: No Action topiramate [Topamax] 100 mg tablet 100 mg PO DAILY potassium chloride [Klor-Con M20] 20 mEq tablet,ER particles/crystals 20 meq PO DAILY guaifenesin [Mucinex] 600 mg tablet extended release 12hr 600 mg PO BID losartan 100 mg tablet 100 mg PO DAILY tamsulosin 0.4 mg capsule 0.4 mg PO DAILY omeprazole 20 mg capsule,delayed release(DR/EC) 20 mg PO DAILY furosemide [Lasix] 40 mg tablet 40 mg PO DAILY simvastatin 20 mg tablet 20 mg PO DAILY allopurinol 300 mg tablet 150 mg PO DAILY (DME) Diabetic shoes Qty: 1 0RF Rx Instructions: As directed (DME) limpadeama decongestion to the lower extremities See Rx Instructions .Route .MEDSUPPLY Qty: 1 0RF Rx Instructions: As directed by physical therapy mupirocin 2 % ointment 1 applic topical BID Qty: 22 1RF Rx Instructions: Apply to affected area until healed (DME) Diabetic Shoes with 3 pairs of inserts See Rx Instructions .Route .MEDSUPPLY Qty: 1 0RF Rx Instructions: As directed by [facility] levofloxacin 500 mg tablet 500 mg PO DAILY Qty: 5 0RF fluticasone propion-salmeterol [Advair Diskus] 500-50 mcg/dose blister with device 1 inh inhalation BID Qty: 60 3RF clindamycin HCl 300 mg capsule 300 mg PO Q8H Qty: 21 0RF gabapentin 100 mg capsule 100 mg PO TID Qty: 90 3RF metoprolol tartrate 25 mg tablet 12.5 mg PO BID Qty: 90 2RF Discharge Orders: Discharge ED (Routine); Ordered 11/20/22 Ordered By: Radha Garvey Referrals: Gustavo Meyer MD [Referring] - Discharge Diet: Advance as tolerated Discharge Activity: Resume usual activity Patient Instructions: Urinary Retention in Men (ED) Coding Level of Care Code ED Spray Gunner for Gregor Mcallister
--- NOTE | 2022-11-20 19:09 | PC.NURSE ---
NAIR PLACED, 400 OUT, PATIENT TOLERATED PROCEDURE WELL.
[2022-11-20 19:29] VITALS: BP 148/82; PULSE 98; RESP 16; O2SAT 98
== END 2022-11-20 19:43 | disposition home or self-care (01) ==
PROVIDERS: Emergency Provider Emergency Medicine; PCP Family Medicine
DX: R33.9 Retention of urine, unspecified (principal); Z87.891 Personal history of nicotine dependence; I25.10 Atherosclerotic heart disease of native coronary artery without angina pectoris; J44.9 Chronic obstructive pulmonary disease, unspecified; E11.9 Type 2 diabetes mellitus without complications; E78.5 Hyperlipidemia, unspecified
CPT/HCPCS: 51702; 99283

== ENCOUNTER 2022-12-11 14:45 | Emergency (ER) | payer MEDICARE, SELFPAY ==
[2022-12-11 14:56] VITALS: BP 115/77; PULSE 100; RESP 14; TEMP 36.1; O2SAT 90; BMI 39.5
--- NOTE | 2022-12-11 15:45 | XRR_ITS ---
PROCEDURE INFORMATION: Exam: XR Abdomen Exam date and time: 12/11/2022 3:53 PM Age: 82 years old Clinical indication: Constipation TECHNIQUE: Imaging protocol: Radiologic exam of the abdomen. Views: 2 Views. Upright and supine views. COMPARISON: CT ang evanss abdlizziel [id number] 04/23/2022 7:10 PM FINDINGS: Gastrointestinal tract: Moderate colonic stool burden. Mildly dilated gas-filled loops of bowel seen within the left hemiabdomen. Intraperitoneal space: Normal. No free air. Bones/joints: Left hip arthroplasty with cerclage wires noted. No acute findings. XR/XR abdomen min 2V 20500 IMPRESSION: Moderate colonic stool burden. Mildly dilated gas-filled loops of bowel seen within the left hemiabdomen.
--- NOTE | 2022-12-11 15:46 | W.ED.ABDPA2 ---
Documented by User: YURIY Pettit 12/15/22 07:19 HPI - Abdominal Pain General: Chief Complaint: Abdominal Pain Stated Complaint: CONSTIPATION/ ABDOMINAL PAIN Time Seen by Provider: 12/11/22 15:14 Source: patient Mode of arrival: ambulatory Limitations: no limitations History of Present Illness: Patient is an 82-year-old male who presents to ED today along with his for concerns of constipation over the past 4 days. Patient states he has been unable to have any form of bowel movement despite multiple [id number] suppositories/laxatives/enemas. He states he normally does not have any issues with constipation. He states he does have pain in his rectum when he attempts defecation. He is able to pass flatulence. feels like patient's abdomen is more swollen than normal. Patient with chronic indwelling Vernon secondary to urine retention (has been in since July/sees a urologist in [place]). MD elicited complaint: abdominal pain Onset (ago): day(s) Pain Consistency: constant Location: Other (rectum) Radiation: none Migration to: no migration Exacerbating factors: other (attempting defecation) Relieving factors: nothing Associated Symptoms: Denies chills, diarrhea, fever(s), heartburn, nausea, syncope and vomiting Review of Systems Const: Denies: fever(s), chills, body aches, fatigue or malaise Eyes: Denies: change in vision or blurry vision Card: Denies: chest pain, palpitations, irregular heart rhythm, lightheadedness, syncope or dyspnea on exertion Resp: Denies: dyspnea, productive cough or pain on inspiration GI: Reports: pain on defecation and rectal pain (when he attempts defecation); Denies: abdominal pain, nausea, vomiting, heartburn or diarrhea : Reports: other (chronic vernon; no blood in bag; draining well ) Musc: Denies: neck pain, back pain or joint pain Skin/Breast: Denies: rash Neuro: Denies: headache(s) PFS ED PFSH: Medical History Arrhythmia Atherosclerosis Bilateral occipital neuralgia Chest pain COPD (chronic obstructive pulmonary disease) 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 Some nonspecific T wave changes. normal QRS duration. Dyslipidemia (high LDL; low HDL) Elevated troponin GERD (gastroesophageal reflux disease) Gout Hypertension Leg swelling Peripheral neuropathy PVD (peripheral vascular disease) Type 2 diabetes mellitus Surgical History History of ankle surgery History of surgery on arm History of total left hip replacement Hx of cataract extraction Family History Brother Cancer Lung disease Father Cancer Chronic kidney disease (CKD) Grandfather Cancer Lung disease Mother Dementia Diabetes Family/Other Diabetes Chronic kidney disease (CKD) Other CAD (coronary artery disease) Denies family history of Clotting disorder Suicide Anesthesia complication Bleeding disorder Stroke Social History Smoking and tobacco status: former smoker Quit status (tobacco): has quit using tobacco Year quit tobacco: 1999 Former quit date comment: 2 ppd x 45 years Alcohol intake: never Physical Exam Const: COMMON NORMALS: no acute distress, patient oriented x3, no limitations and alert GENERAL APPEARANCE: cooperative NUTRITIONAL APPEARANCE: obese ORIENTATION/CONSCIOUSNESS: Yes awake, Yes oriented to person, Yes oriented to place and Yes oriented to time HENMT: COMMON NORMALS: normocephalic and atraumatic HEAD & SCALP: normal to inspection, normocephalic and atraumatic Neck/C-Spine: COMMON NORMALS: full ROM, no lymphadenopathy, supple and no meningeal signs Chest: COMMONS NORMALS: normal inspection of the chest Resp: COMMON NORMALS: normal respiratory effort and clear to auscultation bilaterally AUSCULTATION: clear to auscultation bilaterally Cardio: COMMON NORMALS: regular rate and regular rhythm RATE: regular rate RHYTHM: regular rhythm GI: COMMON NORMALS: Soft to palpation, non-tender and no masses PALPATION: Yes Soft to palpation, No Tenderness to palpation present (GI), No Guarding due to palpation present (GI) and No Rigid due to palpation RECTAL EXAM: Yes visual inspection normal, Yes fecal impaction (large amount of firm stool noted in rectal vault) and Yes tenderness : COMMON NORMALS: Yes no CVA tenderness BLADDER/KIDNEY EXAM: Yes no CVA tenderness Back/Pelvis: COMMON NORMALS: no CVA tenderness and thoracic and lumbar spine normal to inspection Extremity: COMMON NORMALS: normal to inspection GENERAL: Yes edema Neuro: ANGELA COMA SCALE: document GCS findings [place] coma scale eye opening: Spontaneous Mineral coma scale verbal response: Orientated Mineral coma scale motor response: Obey commands Angela coma scale total score: 15 COMMON NORMALS: patient oriented x3 SENSORIUM/ORIENTATION: Yes alert, Yes oriented to person, Yes oriented to place and Yes oriented to time MENINGEAL SIGNS: Yes no meningeal signs Skin: COMMON NORMALS: no rashes or lesions noted GENERAL SKIN EXAM: no rashes or lesions noted Course Vital Signs: Vital signs: Vital Signs Temperature 96.9 F L 12/11/22 14:56 Pulse Rate 92 12/11/22 20:15 Respiratory Rate 18 12/11/22 20:15 Blood Pressure 143/93 12/11/22 20:15 Pulse Oximetry 92 12/11/22 20:15 Oxygen Delivery Me thod 12/11/22 14:56 MDM - Abdominal Pain Lab Data 12/11/22 16:17 12/11/22 16:17 Labs/Radiology: Radiology Impressions Abdomen X-Ray 12/11/22 15:45 IMPRESSION: Moderate colonic stool burden. Mildly dilated gas-filled loops of bowel seen within the left hemiabdomen. Abdomen/Pelvis CT 12/11/22 16:04 IMPRESSION: 1. Moderate colonic stool burden with stool-filled dilation of the rectum up to 7 cm. 2. Redemonstrated mildly prominent air and fluid-filled small bowel loops in the left hemiabdomen without a clear transition point to indicate a bowel obstruction. Chest X-Ray 12/11/22 16:06 IMPRESSION: No acute findings. Laboratory Results WBC 11.5 10^3/uL (4.0-10.0) H 12/11/22 16:17 RBC 4.94 10^6/uL (4.1-5.3) 12/11/22 16:17 Hgb 14.3 g/dL (11.7-16.6) 12/11/22 16:17 Hct 45.2 % (42.0-52.0) 12/11/22 16:17 MCV 91.5 fl (80-94) 12/11/22 16:17 MCH 28.9 pg (28.0-34.0) 12/11/22 16:17 MCHC 31.6 g/dL (30.0-36.0) 12/11/22 16:17 RDW 15.1 % (12.1-15.1) 12/11/22 16:17 Plt Count 337 10^3/cmm (130-400) 12/11/22 16:17 MPV 9.3 fL (7.4-10.4) 12/11/22 16:17 Neut % (Auto) 69.6 % 12/11/22 16:17 Lymph % (Auto) 17.9 % 12/11/22 16:17 [place] % (Auto) 8.4 % 12/11/22 16:17 Eos % (Auto) 2.8 % 12/11/22 16:17 Baso % (Auto) 0.8 % 12/11/22 16:17 Neut # (Auto) 7.97 10^3/uL (1.8-7.7) H 12/11/22 16:17 Lymph # (Auto) 2.1 10^3/uL (0.8-4.8) 12/11/22 16:17 [place] # (Auto) 1.0 10^3/uL (0.2-0.9) H 12/11/22 16:17 Eos # (Auto) 0.3 10^3/uL (0.0-0.8) 12/11/22 16:17 Baso # (Auto) 0.1 10^3/uL (0.0-0.1) 12/11/22 16:17 Nucleated RBC % (auto) 0 % 12/11/22 16:17 Nucleated RBCs # 0.0 /100WBC 12/11/22 16:17 Sodium 140 mmol/L (136-145) 12/11/22 16:17 Potassium 4.2 mmol/L (3.5-5.1) 12/11/22 16:17 Chloride 98 mmol/L (98-107) 12/11/22 16:17 Carbon Dioxide 30 mmol/L (22-29) H 12/11/22 16:17 Anion Gap 16.2 (5-19) 12/11/22 16:17 BUN 14 mg/dL (8-23) 12/11/22 16:17 Creatinine 0.7 mg/dL (0.7-1.2) 12/11/22 16:17 GFR Calculation Not Reportable 12/11/22 16:17 Glucose 117 mg/dL (65-115) H 12/11/22 16:17 Calculated Osmolality 292 mOsm/kg (285-295) 12/11/22 16:17 Calcium 9.3 mg/dL (8.5-10.5) 12/11/22 16:17 Total Bilirubin 0.3 mg/dL (0.15-1.2) 12/11/22 16:17 AST 19 U/L (0-40) 12/11/22 16:17 ALT 20 U/L (0-41) 12/11/22 16:17 Alkaline Phosphatase 112 U/L (40-130) 12/11/22 16:17 NT-Pro-B Natriuret Pep 72 pg/mL (0-450) 12/11/22 16:17 Total Protein 7.4 g/dL (6.6-8.7) 12/11/22 16:17 Albumin 3.6 g/dL (3.5-5.2) 12/11/22 16:17 Globulin 3.8 g/dL (1.3-4.6) 12/11/22 16:17 Discharge Plan Discharge Patient Disposition: Home Clinical Impression: Constipation Condition: Stable Prescriptions: New Milk of Magnesia 400 mg/5 mL suspension 20 ml PO BID PRN (Reason: constipation) Qty: 355 0RF No Action topiramate [Topamax] 100 mg tablet 100 mg PO DAILY potassium chloride [Klor-Con M20] 20 mEq tablet,ER particles/crystals 20 meq PO DAILY guaifenesin [Mucinex] 600 mg tablet extended release 12hr 600 mg PO BID losartan 100 mg tablet 100 mg PO DAILY tamsulosin 0.4 mg capsule 0.4 mg PO DAILY omeprazole 20 mg capsule,delayed release(DR/EC) 20 mg PO DAILY furosemide [Lasix] 40 mg tablet 40 mg PO DAILY simvastatin 20 mg tablet 20 mg PO DAILY allopurinol 300 mg tablet 150 mg PO DAILY (DME) Diabetic shoes Qty: 1 0RF Rx Instructions: As directed (DME) limpadeama decongestion to the lower extremities See Rx Instructions .Route .MEDSUPPLY Qty: 1 0RF Rx Instructions: As directed by physical therapy mupirocin 2 % ointment 1 applic topical BID Qty: 22 1RF Rx Instructions: Apply to affected area until healed (DME) Diabetic Shoes with 3 pairs of inserts See Rx Instructions .Route .MEDSUPPLY Qty: 1 0RF Rx Instructions: As directed by [facility] levofloxacin 500 mg tablet 500 mg PO DAILY Qty: 5 0RF fluticasone propion-salmeterol [Advair Diskus] 500-50 mcg/dose blister with device 1 inh inhalation BID Qty: 60 3RF clindamycin HCl 300 mg capsule 300 mg PO Q8H Qty: 21 0RF gabapentin 100 mg capsule 100 mg PO TID Qty: 90 3RF metoprolol tartrate 25 mg tablet 12.5 mg PO BID Qty: 90 2RF Discharge Orders: Discharge ED (Routine); Ordered 12/11/22 Ordered By: Sagar Anaya Referrals: Trever Rucker DO [Primary Care Provider] - Discharge Diet: Usual diet Discharge Activity: Increase activity as tolerated Patient Instructions: Constipation (ED) Activity Restrictions/Additional Instructions: Home and rest. Drink plenty of fluids. Activity as tolerated. Use milk of magnesia 20 mL 2 times a day as needed for constipation. Eat a healthy diet with lots of fluids and fiber. Follow-up with primary care for further instruction. Return to ED for new concerns. Sign Out Sign Out Data: Patient Sign Out occurred on 12/11/22 at 17:03. Patient's care was discussed, and care was transferred from to Sagar Anaya. 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 Some nonspecific T wave changes. normal QRS duration. Dyslipidemia (high LDL; low HDL) Elevated troponin GERD (gastroesophageal reflux disease) Gout Hypertension Leg swelling Peripheral neuropathy PVD (peripheral vascular disease) Type 2 diabetes mellitus Surgical History History of ankle surgery History of surgery on arm History of total left hip replacement Hx of cataract extraction Family History Brother Cancer Lung disease Father Cancer Chronic kidney disease (CKD) Grandfather Cancer Lung disease Mother Dementia Diabetes Family/Other Diabetes Chronic kidney disease (CKD) Other CAD (coronary artery disease) Denies family history of Clotting disorder Suicide Anesthesia complication Bleeding disorder Stroke Social History Smoking and tobacco status: former smoker Quit status (tobacco): has quit using tobacco Year quit tobacco: 1999 Former quit date comment: 2 ppd x 45 years Alcohol intake: never Physical Exam Neuro: ANGELA COMA SCALE: document GCS findings Angela coma scale total score: 15 Course Vital Signs: Vital signs: Vital Signs Temperature 96.9 F L 12/11/22 14:56 Pulse Rate 92 12/11/22 20:15 Respiratory Rate 18 12/11/22 20:15 Blood Pressure 143/93 12/11/22 20:15 Pulse Oximetry 92 12/11/22 20:15 Oxygen Delivery Me thod 12/11/22 14:56 MDM - Abdominal Pain Medical Decision Making 82-year-old male patient comes in today with complaints of constipation x4 days. On exam abdomen was soft with hyperactive bowel sounds. Skin was warm and dry. Vital signs were normal. Differential diagnosis includes but not limited to constipation, bowel obstruction, gastroenteritis. Abdominal x-ray noted moderate colonic stool burden with dilated gas in the bowel. CT was ordered for concerns of possible bowel obstruction. No sign of bowel obstruction was noted but large amount of stool was noted in the rectum. Patient was given 2 fleets enema with minimal results. Offered further enemas of soapsuds but patient did not want to stay and needed to get home due to a not being able to drive after dark. Patient was given milk of magnesia to try to have bowel movement at home. Patient states a repeat would return in the morning if he was not able to pass the stool. Lab Data 12/11/22 16:17 12/11/22 16:17 Labs/Radiology: Radiology Impressions Abdomen X-Ray 12/11/22 15:45 IMPRESSION: Moderate colonic stool burden. Mildly dilated gas-filled loops of bowel seen within the left hemiabdomen. Abdomen/Pelvis CT 12/11/22 16:04 IMPRESSION: 1. Moderate colonic stool burden with stool-filled dilation of the rectum up to 7 cm. 2. Redemonstrated mildly prominent air and fluid-filled small bowel loops in the left hemiabdomen without a clear transition point to indicate a bowel obstruction. Chest X-Ray 12/11/22 16:06 IMPRESSION: No acute findings. Laboratory Results WBC 11.5 10^3/uL (4.0-10.0) H 12/11/22 16:17 RBC 4.94 10^6/uL (4.1-5.3) 12/11/22 16:17 Hgb 14.3 g/dL (11.7-16.6) 12/11/22 16:17 Hct 45.2 % (42.0-52.0) 12/11/22 16:17 MCV 91.5 fl (80-94) 12/11/22 16:17 MCH 28.9 pg (28.0-34.0) 12/11/22 16:17 MCHC 31.6 g/dL (30.0-36.0) 12/11/22 16:17 RDW 15.1 % (12.1-15.1) 12/11/22 16:17 Plt Count 337 10^3/cmm (130-400) 12/11/22 16:17 MPV 9.3 fL (7.4-10.4) 12/11/22 16:17 Neut % (Auto) 69.6 % 12/11/22 16:17 Lymph % (Auto) 17.9 % 12/11/22 16:17 [place] % (Auto) 8.4 % 12/11/22 16:17 Eos % (Auto) 2.8 % 12/11/22 16:17 Baso % (Auto) 0.8 % 12/11/22 16:17 Neut # (Auto) 7.97 10^3/uL (1.8-7.7) H 12/11/22 16:17 Lymph # (Auto) 2.1 10^3/uL (0.8-4.8) 12/11/22 16:17 [place] # (Auto) 1.0 10^3/uL (0.2-0.9) H 12/11/22 16:17 Eos # (Auto) 0.3 10^3/uL (0.0-0.8) 12/11/22 16:17 Baso # (Auto) 0.1 10^3/uL (0.0-0.1) 12/11/22 16:17 Nucleated RBC % (auto) 0 % 12/11/22 16:17 Nucleated RBCs # 0.0 /100WBC 12/11/22 16:17 Sodium 140 mmol/L (136-145) 12/11/22 16:17 Potassium 4.2 mmol/L (3.5-5.1) 12/11/22 16:17 Chloride 98 mmol/L (98-107) 12/11/22 16:17 Carbon Dioxide 30 mmol/L (22-29) H 12/11/22 16:17 Anion Gap 16.2 (5-19) 12/11/22 16:17 BUN 14 mg/dL (8-23) 12/11/22 16:17 Creatinine 0.7 mg/dL (0.7-1.2) 12/11/22 16:17 GFR Calculation Not Reportable 12/11/22 16:17 Glucose 117 mg/dL (65-115) H 12/11/22 16:17 Calculated Osmolality 292 mOsm/kg (285-295) 12/11/22 16:17 Calcium 9.3 mg/dL (8.5-10.5) 12/11/22 16:17 Total Bilirubin 0.3 mg/dL (0.15-1.2) 12/11/22 16:17 AST 19 U/L (0-40) 12/11/22 16:17 ALT 20 U/L (0-41) 12/11/22 16:17 Alkaline Phosphatase 112 U/L (40-130) 12/11/22 16:17 NT-Pro-B Natriuret Pep 72 pg/mL (0-450) 12/11/22 16:17 Total Protein 7.4 g/dL (6.6-8.7) 12/11/22 16:17 Albumin 3.6 g/dL (3.5-5.2) 12/11/22 16:17 Globulin 3.8 g/dL (1.3-4.6) 12/11/22 16:17 Discharge Plan Discharge Patient Disposition: Home Clinical Impression: Constipation Condition: Stable Prescriptions: New Milk of Magnesia 400 mg/5 mL suspension 20 ml PO BID PRN (Reason: constipation) Qty: 355 0RF No Action topiramate [Topamax] 100 mg tablet 100 mg PO DAILY potassium chloride [Klor-Con M20] 20 mEq tablet,ER particles/crystals 20 meq PO DAILY guaifenesin [Mucinex] 600 mg tablet extended release 12hr 600 mg PO BID losartan 100 mg tablet 100 mg PO DAILY tamsulosin 0.4 mg capsule 0.4 mg PO DAILY omeprazole 20 mg capsule,delayed release(DR/EC) 20 mg PO DAILY furosemide [Lasix] 40 mg tablet 40 mg PO DAILY simvastatin 20 mg tablet 20 mg PO DAILY allopurinol 300 mg tablet 150 mg PO DAILY (DME) Diabetic shoes Qty: 1 0RF Rx Instructions: As directed (DME) limpadeama decongestion to the lower extremities See Rx Instructions .Route .MEDSUPPLY Qty: 1 0RF Rx Instructions: As directed by physical therapy mupirocin 2 % ointment 1 applic topical BID Qty: 22 1RF Rx Instructions: Apply to affected area until healed (DME) Diabetic Shoes with 3 pairs of inserts See Rx Instructions .Route .MEDSUPPLY Qty: 1 0RF Rx Instructions: As directed by [facility] levofloxacin 500 mg tablet 500 mg PO DAILY Qty: 5 0RF fluticasone propion-salmeterol [Advair Diskus] 500-50 mcg/dose blister with device 1 inh inhalation BID Qty: 60 3RF clindamycin HCl 300 mg capsule 300 mg PO Q8H Qty: 21 0RF gabapentin 100 mg capsule 100 mg PO TID Qty: 90 3RF metoprolol tartrate 25 mg tablet 12.5 mg PO BID Qty: 90 2RF Discharge Orders: Discharge ED (Routine); Ordered 12/11/22 Ordered By: Sagar Anaya Referrals: Trever Rucker DO [Primary Care Provider] - Discharge Diet: Usual diet Discharge Activity: Increase activity as tolerated Patient Instructions: Constipation (ED) Activity Restrictions/Additional Instructions: Home and rest. Drink plenty of fluids. Activity as tolerated. Use milk of magnesia 20 mL 2 times a day as needed for constipation. Eat a healthy diet with lots of fluids and fiber. Follow-up with primary care for further instruction. Return to ED for new concerns. Sign Out Sign Out Data: Patient Sign Out occurred on 12/11/22 at 17:03. Patient's care was discussed, and care was transferred from to Sagar Anaya. Coding Level of Care Code ED Condenser Operator for Gregor Mcallister
--- NOTE | 2022-12-11 16:04 | CTR_ITS ---
PROCEDURE INFORMATION: Exam: CT Abdomen And Pelvis With Contrast Exam date and time: 12/11/2022 5:49 PM Age: 82 years old Clinical indication: Abdominal pain; Other: Rectal pain; Prior surgery; Surgery date: 6+ months; Surgery type: Lt hip replacement; Additional info: Constipation/rectal pain TECHNIQUE: Imaging protocol: Computed tomography of the abdomen and pelvis with contrast. Radiation optimization: All CT scans at this facility use at least one of these dose optimization techniques: automated exposure control; mA and/or kV adjustment per patient size (includes targeted exams where dose is matched to clinical indication); or iterative reconstruction. Contrast material: OMNI 350; Contrast volume: 100 ml; Contrast route: INTRAVENOUS (IV); REPORTING DATA: Count of CT and Cardiac NM exams in prior 12 months: This patient has received 2 known CTs and 0 known cardiac nuclear medicine studies in the 12 months prior to the current study. COMPARISON: CT rylee sewell [id number] 04/23/2022 7:10 PM RADIATION DOSE METRICS: Total DLP (mGy-cm): 1412.53 FINDINGS: Liver: Normal. No mass. Gallbladder and bile ducts: Normal. No calcified stones. No ductal dilation. Pancreas: Normal. No ductal dilation. Spleen: Normal. No splenomegaly. Adrenal glands: Normal. No mass. Kidneys and ureters: Normal. No hydronephrosis. Stomach and bowel: Moderate colonic stool burden with stool-filled dilation of the rectum up to 7 cm. There is mildly prominent air and fluid-filled small bowel loops in the left hemiabdomen measuring up to 3.3 cm. There is no clear transition point to indicate a bowel obstruction. No mucosal thickening. Appendix: No evidence of appendicitis. Intraperitoneal space: No free air. No significant fluid collection. Vasculature: No abdominal aortic aneurysm. Lymph nodes: No enlarged lymph nodes. Urinary bladder: Hahn catheter noted within a decompressed bladder. Reproductive: Enlarged prostate. Bones/joints: No acute fracture. Left hip arthroplasty with cerclage wires noted. Soft tissues: Unremarkable. CT/CT abdomen pelvis w con* [id number] IMPRESSION: 1. Moderate colonic stool burden with stool-filled dilation of the rectum up to 7 cm. 2. Redemonstrated mildly prominent air and fluid-filled small bowel loops in the left hemiabdomen without a clear transition point to indicate a bowel obstruction.
--- NOTE | 2022-12-11 16:06 | XRR_ITS ---
PROCEDURE INFORMATION: Exam: XR Chest Exam date and time: 12/11/2022 5:40 PM Age: 82 years old Clinical indication: Precordial pain and other: Constipatioin, fluid overload; Additional info: Appears fluid overloaded TECHNIQUE: Imaging protocol: Radiologic exam of the chest. Views: 1 view. COMPARISON: CR XR chest 1V portable [id number] 04/23/2022 5:41 PM FINDINGS: Lungs: Unremarkable. No consolidation. Pleural spaces: Unremarkable. No pleural effusion. No pneumothorax. Heart/Mediastinum: Unremarkable. No cardiomegaly. Bones/joints: Unremarkable. XR/XR chest 1V portable [id number] IMPRESSION: No acute findings.
[2022-12-11 16:30] LABS: Basophils # 0.1 10^3/uL (0.0-0.1); Basophils % 0.8 %; Eosinophils # 0.3 10^3/uL (0.0-0.8); Eosinophils % 2.8 %; Hematocrit 45.2 % (42.0-52.0); Hemoglobin 14.3 g/dL (11.7-16.6); Lymphocytes # 2.1 10^3/uL (0.8-4.8); Lymphocytes % 17.9 %; Mean Corpuscular HGB Conc 31.6 g/dL (30.0-36.0); Mean Corpuscular Hemoglobin 28.9 pg (28.0-34.0); Mean Corpuscular Volume 91.5 fl (80-94); Mean Platelet Volume 9.3 fL (7.4-10.4); Monocytes % 8.4 %; Neutrophils # 7.97 10^3/uL (1.8-7.7); Neutrophils % 69.6 %; Nucleated Red Blood Cells % 0 %; Platelet Count 337 10^3/cmm (130-400); Red Blood Count 4.94 10^6/uL (4.1-5.3); Red Cell Distribution Width 15.1 % (12.1-15.1); White Blood Count 11.5 10^3/uL (4.0-10.0)
[2022-12-11 17:01] LABS: Alanine Aminotransferase 20 U/L (0-41); Albumin Level 3.6 g/dL (3.5-5.2); Alkaline Phosphatase 112 U/L (40-130); Anion Gap 16.2 (5-19); Aspartate Amino Transferase 19 U/L (0-40); Blood Urea Nitrogen 14 mg/dL (8-23); Calcium 9.3 mg/dL (8.5-10.5); Carbon Dioxide 30 mmol/L (22-29); Chloride 98 mmol/L (98-107); Globulin 3.8 g/dL (1.3-4.6); Glucose 117 mg/dL (65-115); NT Pro B Type Natriuretic Pept 72 pg/mL (0-450); Osmolality Calculated 292 mOsm/kg (285-295); Potassium 4.2 mmol/L (3.5-5.1); Sodium 140 mmol/L (136-145); Total Bilirubin 0.3 mg/dL (0.15-1.2); Total Protein 7.4 g/dL (6.6-8.7)
[2022-12-11] MEDS: iohexol 350 mg/mL 500 mL Btl (per mL) 100 ML IV (17:53)
[2022-12-11] MEDS: magnesium hydroxide 30 mL UDC PO (18:20)
[2022-12-11] MEDS: Fleet Enema 133 mL Enema PR ×2 (18:22→19:48)
--- NOTE | 2022-12-11 18:51 | PC.NURSE ---
report given to Koby
[2022-12-11] MEDS: docusate sodium 10 mg/mL (5ml) Liq 100 MG PO (19:10)
[2022-12-11] MEDS: ondansetron 2 mg/ML SDV 2 mL 4 MG IM (19:51)
[2022-12-11 20:15] VITALS: BP 143/93; PULSE 92; RESP 18; O2SAT 92
== END 2022-12-11 20:10 | disposition home or self-care (01) ==
PROVIDERS: Physician Assistant; Emergency Provider Nurse Practitioner Family; PCP Family Medicine
DX: K59.00 Constipation, unspecified (principal); Z87.891 Personal history of nicotine dependence; J44.9 Chronic obstructive pulmonary disease, unspecified; E11.9 Type 2 diabetes mellitus without complications; E78.5 Hyperlipidemia, unspecified; I10 Essential (primary) hypertension
CPT/HCPCS: 36415; 71045; 74019; 74177; 80053; 83880; 85025; 99285; J2405; Q9967

== ENCOUNTER → 2023-01-08 09:54 | Outpatient (BNVA) | payer MEDICARE, SELFPAY | PROVIDERS: PCP Family Medicine; Visit Provider Podiatrist Foot & Ankle Surgery | DX: E11.8 Type 2 diabetes mellitus with unspecified complications (principal); E11.42 Type 2 diabetes mellitus with diabetic polyneuropathy; L60.3 Nail dystrophy; I73.9 Peripheral vascular disease, unspecified; I89.0 Lymphedema, not elsewhere classified | CPT/HCPCS: 11721 ==

== ENCOUNTER 2023-01-27 12:57 | Inpatient (IN) | payer MEDICARE, SELFPAY ==
[2023-01-27] VITALS (8 sets, daily range): BP systolic 118–149; BP diastolic 67–90; PULSE 72–94; RESP 16–18; TEMP 36.4–37; O2SAT 93–98; BMI 39.5
--- NOTE | 2023-01-27 13:06 | CTR_ITS ---
PROCEDURE INFORMATION: Exam: CT Head Without Contrast Exam date and time: 01/27/2023 1:54 PM Age: 83 years old Clinical indication: Injury or trauma; Fall; Blunt trauma (contusions or hematomas) TECHNIQUE: Imaging protocol: Computed tomography of the head without contrast. Radiation optimization: All CT scans at this facility use at least one of these dose optimization techniques: automated exposure control; mA and/or kV adjustment per patient size (includes targeted exams where dose is matched to clinical indication); or iterative reconstruction. REPORTING DATA: Count of CT and Cardiac NM exams in prior 12 months: This patient has received 3 known CTs and 0 known cardiac nuclear medicine studies in the 12 months prior to the current study. COMPARISON: MR head wo con* [id number] 06/12/2016 1:50 PM RADIATION DOSE METRICS: Total DLP (mGy-cm): 1250.91 FINDINGS: Brain: No acute intracranial hemorrhage. No edema. No mass effect. 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 cerebral ventricles: No hydrocephalus. The ventricles and sulci are prominent in size in keeping with brain atrophy. Paranasal sinuses: Visualized sinuses are unremarkable. No fluid levels. Mastoid air cells: No mastoid effusion. Bones/joints: No acute fracture. No suspicious lytic or sclerotic bone lesions. Soft tissues: Unremarkable. CT/CT head wo con* [id number] IMPRESSION: No CT evidence of acute intracranial hemorrhage, mass or acute infarction.
--- NOTE | 2023-01-27 13:06 | CTR_ITS ---
PROCEDURE INFORMATION: Exam: CT Thoracic Spine Without Contrast Exam date and time: 01/27/2023 2:00 PM Age: 83 years old Clinical indication: Injury or trauma; Fall; Blunt trauma (contusions or hematomas) TECHNIQUE: Imaging protocol: Computed tomography of the thoracic spine without contrast. Radiation optimization: All CT scans at this facility use at least one of these dose optimization techniques: automated exposure control; mA and/or kV adjustment per patient size (includes targeted exams where dose is matched to clinical indication); or iterative reconstruction. REPORTING DATA: Count of CT and Cardiac NM exams in prior 12 months: This patient has received 3 known CTs and 0 known cardiac nuclear medicine studies in the 12 months prior to the current study. COMPARISON: CT cervical spin wo con* [id number] 01/27/2023 1:54 PM RADIATION DOSE METRICS: Total DLP (mGy-cm): 1477.9 FINDINGS: Bones/joints: Subtle wedging of the superior and inferior endplates are identified involving T9 of unknown age. Age-appropriate degenerative disc disease is seen without dislocation. No disc protrusion, disc extrusion or spinal stenosis. Foramina are normal for age. There is a subtle fracture of the right L1 transverse process best seen on image 10/24. Mild scoliosis. Soft tissues: Unremarkable. Lungs: Mild heterogenicity lungs. Questionably related to lung disease. Pleural spaces: Pleural thickening on the right versus a trace right pleural effusion. CT/CT thoracic spin wo con* [id number] IMPRESSION: 1. Minimal wedging of the T9 superior and inferior endplates less than 10% each. 2. Subtle fracture in vertical configuration of the right L1 transverse process. 3. Questionable trace pleural effusion on the right 4. Interstitial lung disease?
--- NOTE | 2023-01-27 13:06 | CTR_ITS ---
PROCEDURE INFORMATION: Exam: CT Abdomen And Pelvis Without Contrast Exam date and time: 01/27/2023 2:00 PM Age: 83 years old Clinical indication: Injury or trauma; Fall; Blunt; Generalized TECHNIQUE: Imaging protocol: Computed tomography of the abdomen and pelvis without contrast. Radiation optimization: All CT scans at this facility use at least one of these dose optimization techniques: automated exposure control; mA and/or kV adjustment per patient size (includes targeted exams where dose is matched to clinical indication); or iterative reconstruction. REPORTING DATA: Count of CT and Cardiac NM exams in prior 12 months: This patient has received 3 known CTs and 0 known cardiac nuclear medicine studies in the 12 months prior to the current study. COMPARISON: CT abdomen pelvis w con* [id number] 12/11/2022 5:49 PM RADIATION DOSE METRICS: Total DLP (mGy-cm): 1360.7 FINDINGS: Pleural spaces: Questionable trace pleural effusions given the artifact. Diaphragm: Elevated left hemidiaphragm. Liver: Heterogeneous liver likely due to the patient's right arm on his abdomen giving rise to artifact. Questionable 10 x 9 mm mass in left lobe image 03/09. Gallbladder and bile ducts: Normal. No calcified stones. No ductal dilation. Pancreas: Normal. No ductal dilation. Spleen: Normal. No splenomegaly. Adrenal glands: Normal. No mass. Kidneys and ureters: Normal. No hydronephrosis. Stomach and bowel: Unremarkable. No obstruction. No mucosal thickening. Appendix: No evidence of appendicitis. Intraperitoneal space: Unremarkable. No free air. No significant fluid collection. Vasculature: Unremarkable. No abdominal aortic aneurysm. Lymph nodes: Unremarkable. No enlarged lymph nodes. Urinary bladder: See Reproductive finding. Reproductive: Very large prostate with surgical clips in the prostate possibly due to prior biopsies. Hahn catheter in the urinary bladder with a droplet of air. Bones/joints: The dorsal spine will be discussed on a separate dictation. Arthritic changes without fracture seen in the lumbar spine. Hip replacement on the left. Soft tissue induration inflammation involving the left hip. I do not know if this is due to the prior surgery or is due to acute trauma. Soft tissues: See Bones/joints finding. CT/CT abdomen pelvis wo con [id number] IMPRESSION: 1. Left hip replacement with increased density in induration of the subcutaneous tissues at the level of the hip. Questionably related to surgery versus acute trauma. 2. Very large prostate. 3. Heterogeneous liver. Cannot rule out subtle injury due to the patient's arms that were scanned on his stomach. Questionable liver mass. 4. Questionable trace pleural effusions.
--- NOTE | 2023-01-27 13:06 | CTR_ITS ---
PROCEDURE INFORMATION: Exam: CT Cervical Spine Without Contrast Exam date and time: 01/27/2023 1:54 PM Age: 83 years old Clinical indication: Injury or trauma; Fall; Blunt trauma TECHNIQUE: Imaging protocol: Computed tomography of the cervical spine without contrast. Radiation optimization: All CT scans at this facility use at least one of these dose optimization techniques: automated exposure control; mA and/or kV adjustment per patient size (includes targeted exams where dose is matched to clinical indication); or iterative reconstruction. REPORTING DATA: Count of CT and Cardiac NM exams in prior 12 months: This patient has received 3 known CTs and 0 known cardiac nuclear medicine studies in the 12 months prior to the current study. COMPARISON: CT cervical spin wo con* [id number] 03/01/2016 10:03 PM RADIATION DOSE METRICS: Total DLP (mGy-cm): 378.8 FINDINGS: Bones/joints: No acute fracture. Normal alignment. Broad-based marginal disc osteophyte complexes at C2-C3, C3-C4, C4-C5, C5-C6 and C6-C7 levels are causing mild spinal stenosis. There are degenerative changes in uncovertebral and facet joints contributing to foraminal stenosis (moderate right at C2-C3, severe left and mild right at C3-C4, moderate to severe left and mild right at C4-C5, moderate left at C5-C6 level). Lungs: Lung apices are normal. Soft tissues: Unremarkable. CT/CT cervical spin wo con* [id number] IMPRESSION: No acute fracture. Multilevel degenerative changes as described.
--- NOTE | 2023-01-27 13:22 | ED_ITS ---
HPI - Fall General: Chief Complaint: Fall Stated Complaint: BACK PAIN S/P FALL Time Seen by Provider: 01/27/23 13:03 Source: patient Mode of arrival: ambulatory Limitations: no limitations History of Present Illness: 83-year-old male states he had a fall on . He states he fell in the bathroom he did hit his head states he had a headache along with back pain since then. States pain is sharp in nature rates it a 5 out of 10 he has been able to ambulate he denies any worsening improving factors no vomiting no chest or abdominal pain. Patient also states he has severe left hip pain he states he has not been able to walk since or put any weight on the left side. 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 Some nonspecific T wave changes. normal QRS duration. Dyslipidemia (high LDL; low HDL) Elevated troponin GERD (gastroesophageal reflux disease) Gout Hypertension Leg swelling Peripheral neuropathy PVD (peripheral vascular disease) Type 2 diabetes mellitus Surgical History History of ankle surgery History of surgery on arm History of total left hip replacement Hx of cataract extraction Family History Brother Cancer Lung disease Father Cancer Chronic kidney disease (CKD) Grandfather Cancer Lung disease Mother Dementia Diabetes Family/Other Diabetes Chronic kidney disease (CKD) Other CAD (coronary artery disease) Denies family history of Clotting disorder Suicide Anesthesia complication Bleeding disorder Stroke Social History Smoking and tobacco status: former smoker Quit status (tobacco): has quit using tobacco Year quit tobacco: 1999 Former quit date comment: 2 ppd x 45 years Alcohol intake: never Substance/Drug Use: never Physical Exam Const: COMMON NORMALS: no acute distress, patient oriented x3 and healthy appearing HENMT: COMMON NORMALS: normocephalic HEAD & SCALP: normocephalic OTHER: Some tenderness posterior scalp no obvious deformity Eye: COMMON NORMALS: Equal, round and reactive pupils present and EOMs intact bilaterally PUPIL: Yes Equal, round and reactive pupils present Neck/C-Spine: COMMON NORMALS: full ROM and supple OTHER: Numbness along cervical spine Chest: COMMONS NORMALS: normal inspection of the chest and normal palpation of entire chest wall Resp: COMMON NORMALS: normal respiratory effort, No retractions, No use of accessory muscles and clear to auscultation bilaterally AUSCULTATION: clear to auscultation bilaterally Cardio: COMMON NORMALS: regular rate, regular rhythm and No murmurs present (Cardio) RATE: regular rate RHYTHM: regular rhythm GI: COMMON NORMALS: Normal to inspection, nondistended, normoactive bowel sounds present, Soft to palpation, non-tender and no masses PALPATION: Yes Soft to palpation Back/Pelvis: OTHER: Tenderness along thoracic and lumbar spine no obvious deformities Extremity: COMMON NORMALS: normal to inspection NARRATIVE EXTREMITY EXAM: Bilateral hip tenderness not able to walk Neuro: COMMON NORMALS: patient oriented x3, moves all extremities and no focal motor deficits Psych: COMMON NORMALS: mental status grossly normal, Normal thought process present and cooperative THOUGHT PROCESS: Normal thought process present Skin: COMMON NORMALS: no rashes or lesions noted and no wounds GENERAL SKIN EXAM: no rashes or lesions noted Course Vital Signs: Vital signs: Vital Signs Pulse Rate 74 01/27/23 15:55 Respiratory Rate 18 01/27/23 15:55 Blood Pressure 119/90 01/27/23 15:55 Pulse Oximetry 98 01/27/23 15:55 Oxygen Delivery Me thod Room Air 01/27/23 15:55 MDM - Fall Medical Decision Making Patient presents here with back and bilateral hip pain after a fall he has not been able ambulate since did speak to the hospitalist along with orthopedist and will admit due to not being able ambulate. Medical Records I reviewed the patient's medical records. Lab Data I reviewed the patient's lab results. 01/27/23 15:30 01/27/23 15:30 Radiology Impressions Abdomen/Pelvis CT 01/27/23 13:06 IMPRESSION: 1. Left hip replacement with increased density in induration of the subcutaneous tissues at the level of the hip. Questionably related to surgery versus acute trauma. 2. Very large prostate. 3. Heterogeneous liver. Cannot rule out subtle injury due to the patient's arms that were scanned on his stomach. Questionable liver mass. 4. Questionable trace pleural effusions. Cervical Spine CT 01/27/23 13:06 IMPRESSION: No acute fracture. Multilevel degenerative changes as described. Head CT 01/27/23 13:06 IMPRESSION: No CT evidence of acute intracranial hemorrhage, mass or acute infarction. Thoracic Spine CT 01/27/23 13:06 IMPRESSION: 1. Minimal wedging of the T9 superior and inferior endplates less than 10% each. 2. Subtle fracture in vertical configuration of the right L1 transverse process. 3. Questionable trace pleural effusion on the right 4. Interstitial lung disease? Shoulder X-Ray 01/27/23 15:02 IMPRESSION: No acute findings. Laboratory Results WBC 12.7 10^3/uL (4.0-10.0) H 01/27/23 15:30 RBC 4.59 10^6/uL (4.1-5.3) 01/27/23 15:30 Hgb 13.5 g/dL (11.7-16.6) 01/27/23 15:30 Hct 42.6 % (42.0-52.0) 01/27/23 15:30 MCV 92.8 fl (80-94) 01/27/23 15:30 MCH 29.4 pg (28.0-34.0) 01/27/23 15:30 MCHC 31.7 g/dL (30.0-36.0) 01/27/23 15:30 RDW 14.7 % (12.1-15.1) 01/27/23 15:30 Plt Count 315 10^3/cmm (130-400) 01/27/23 15:30 MPV 9.4 fL (7.4-10.4) 01/27/23 15:30 Neut % (Auto) 72.8 % 01/27/23 15:30 Lymph % (Auto) 16.9 % 01/27/23 15:30 [place] % (Auto) 7.0 % 01/27/23 15:30 Eos % (Auto) 2.4 % 01/27/23 15:30 Baso % (Auto) 0.5 % 01/27/23 15:30 Neut # (Auto) 9.22 10^3/uL (1.8-7.7) H 01/27/23 15:30 Lymph # (Auto) 2.1 10^3/uL (0.8-4.8) 01/27/23 15:30 [place] # (Auto) 0.9 10^3/uL (0.2-0.9) 01/27/23 15:30 Eos # (Auto) 0.3 10^3/uL (0.0-0.8) 01/27/23 15:30 Baso # (Auto) 0.1 10^3/uL (0.0-0.1) 01/27/23 15:30 Nucleated RBC % (auto) 0 % 01/27/23 15:30 Nucleated RBCs # 0.0 /100WBC 01/27/23 15:30 Sodium 139 mmol/L (136-145) 01/27/23 15:30 Potassium 3.9 mmol/L (3.5-5.1) 01/27/23 15:30 Chloride 98 mmol/L (98-107) 01/27/23 15:30 Carbon Dioxide 28 mmol/L (22-29) 01/27/23 15:30 Anion Gap 16.9 (5-19) 01/27/23 15:30 BUN 12 mg/dL (8-23) 01/27/23 15:30 Creatinine 0.7 mg/dL (0.7-1.2) 01/27/23 15:30 GFR Calculation Not Reportable 01/27/23 15: Calculated Osmolality 289 mOsm/kg (285-295) 01/27/23 15:30 Calcium 9.2 mg/dL (8.5-10.5) 01/27/23 15:30 Total Bilirubin 0.3 mg/dL (0.15-1.2) 01/27/23 15:30 AST 18 U/L (0-40) 01/27/23 15:30 ALT 16 U/L (0-41) 01/27/23 15:30 Alkaline Phosphatase 130 U/L (40-130) 01/27/23 15:30 Total Protein 7.4 g/dL (6.6-8.7) 01/27/23 15:30 Globulin 4.1 g/dL (1.3-4.6) 01/27/23 15:30 Discharge Plan Discharge Patient Disposition: Admitted As Inpatient Admit Provider: Yasmany Mccann Clinical Impression: Fall, Fracture of thoracic spine Condition: Stable Discharge Diet: Advance as tolerated Discharge Activity: Resume usual activity Coding Level of Care Code ED [employer] 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
--- NOTE | 2023-01-27 15:02 | XRR_ITS ---
PROCEDURE INFORMATION: Exam: XR Right Shoulder Exam date and time: 01/27/2023 3:07 PM Age: 83 years old Clinical indication: Injury or trauma; Fall; Blunt trauma (contusions or hematomas); Shoulder; Right TECHNIQUE: Imaging protocol: Radiologic exam of the right shoulder. Views: 2 or more views. COMPARISON: CT cervical spin wo con* [id number] 01/27/2023 1:54 PM FINDINGS: Bones/joints: Moderate inferior AC joint spurring without fracture, dislocation or subluxation. Mild humeral head irregularity consistent with arthritic changes. Soft tissues: Normal. XR/XR shoulder RT min 2V* [id number] IMPRESSION: No acute findings.
--- NOTE | 2023-01-27 15:20 | XRR_ITS ---
PROCEDURE INFORMATION: Exam: XR Right Hip Exam date and time: 01/27/2023 3:40 PM Age: 83 years old Clinical indication: Injury or trauma; Fall; Blunt trauma (contusions or hematomas); Right; Hip TECHNIQUE: Imaging protocol: Radiologic exam of the right hip. Views: 2 or 3 views hip with pelvis when performed. COMPARISON: CT abdomen pelvis wo con [id number] 01/27/2023 2:00 PM FINDINGS: Bones/joints: Right total hip replacement. Good alignment no fracture. Pseudo acetabulum. Mild arthritic changes in the right hip. No acute fracture. Soft tissues: Unremarkable. Gastrointestinal tract: Abdominal ileus? Organs: Suspect surgical clips in the area of the prostate. XR/XR hip RT 2-3V wo/w pel* [id number] IMPRESSION: No acute fracture.
[2023-01-27 15:38] LABS: Basophils # 0.1 10^3/uL (0.0-0.1); Basophils % 0.5 %; Eosinophils # 0.3 10^3/uL (0.0-0.8); Eosinophils % 2.4 %; Hematocrit 42.6 % (42.0-52.0); Hemoglobin 13.5 g/dL (11.7-16.6); Lymphocytes # 2.1 10^3/uL (0.8-4.8); Lymphocytes % 16.9 %; Mean Corpuscular HGB Conc 31.7 g/dL (30.0-36.0); Mean Corpuscular Hemoglobin 29.4 pg (28.0-34.0); Mean Corpuscular Volume 92.8 fl (80-94); Mean Platelet Volume 9.4 fL (7.4-10.4); Monocytes # 0.9 10^3/uL (0.2-0.9); Neutrophils # 9.22 10^3/uL (1.8-7.7); Neutrophils % 72.8 %; Nucleated Red Blood Cells % 0 %; Platelet Count 315 10^3/cmm (130-400); Red Blood Count 4.59 10^6/uL (4.1-5.3); Red Cell Distribution Width 14.7 % (12.1-15.1); White Blood Count 12.7 10^3/uL (4.0-10.0)
--- NOTE | 2023-01-27 15:47 | PC.PHAR ---
Addendum entered by Anabelle Mistry 01/27/23 15:54: pts got copy of med list and will check when she gets home to make sure its what the pt is still taking Original Note: pt and pts werent able to verify all the names of the medications without help-states whatever [facility] has been filling is what he takes, called [facility] got list and then went back and verified with pt and pts -pts states the pt is still taking [facility] 20[facility]q [facility] states last filled 2020 pts states the pt had a build up from when pt was in the group home and states the group home also sent him some home-[facility] states they filled allopurinol 300mg take 2 tabs (600mg) daily pt states he takes 2 tabs daily-notes are made in the pharmacy comments
--- NOTE | 2023-01-27 15:48 | XRR_ITS ---
PROCEDURE INFORMATION: Exam: XR Left Hip Exam date and time: 01/27/2023 3:51 PM Age: 83 years old Clinical indication: Injury or trauma; Fall; Blunt trauma (contusions or hematomas); Left; Hip; Prior surgery; Surgery date: 6+ months; Additional info: Pain TECHNIQUE: Imaging protocol: Radiologic exam of the left hip. Views: 2 or 3 views hip with pelvis when performed. COMPARISON: CT abdomen pelvis wo con [id number] 01/27/2023 2:00 PM FINDINGS: Bones/joints: There is a hip replacement similar in its appearance to the CT scan. There is no evidence of dislocation or fracture. Cerclage wires are seen spanning the greater trochanter. Soft tissues: Unremarkable. XR/XR hip LT 2-3V wo/w pel* [id number] IMPRESSION: Left hip replacement. No evidence of an acute fracture.
[2023-01-27 16:07] LABS: Alanine Aminotransferase 16 U/L (0-41); Albumin Level 3.3 g/dL (3.5-5.2); Alkaline Phosphatase 130 U/L (40-130); Anion Gap 16.9 (5-19); Aspartate Amino Transferase 18 U/L (0-40); Blood Urea Nitrogen 12 mg/dL (8-23); Calcium 9.2 mg/dL (8.5-10.5); Carbon Dioxide 28 mmol/L (22-29); Chloride 98 mmol/L (98-107); Creatinine Clr Calc Pharmacy 103.0821; Globulin 4.1 g/dL (1.3-4.6); Glucose 127 mg/dL (65-115); Osmolality Calculated 289 mOsm/kg (285-295); Potassium 3.9 mmol/L (3.5-5.1); Sodium 139 mmol/L (136-145); Total Bilirubin 0.3 mg/dL (0.15-1.2); Total Protein 7.4 g/dL (6.6-8.7)
--- NOTE | 2023-01-27 17:04 | PM.HP ---
Providers/Chief Complaint Admitting Physician: Yasmany Mccann MD Primary Care Provider: Trever Rucker DO Chief Complaint: BACK PAIN S/P FALL History of Present Illness Junior Don Urbina is a 83 year old male with past medical history of hypertension COPD diabetes gout, on Lasix for history of lymphedema, was brought in after experiencing fall at home and since then he has not been able to ambulate, according to the patient he fell in his bathroom on , likely from the description it appears to be a mechanical fall, and since then he has been complaining of lower back pain as well as bilateral hip pain, and has not been able to ambulate. CT imaging studies so far has been only significant for: Minimal wedging of the T9 superior and inferior endplates less than 10% each.ubtle fracture in vertical configuration of the right L1 transverse.CT head without contrast has no acute intracranial pathology. CT abdomen and pelvis has shown: Left hip replacement with increased density in induration of the subcutaneous tissues at the level of the hip. Questionably related to surgery versus acute trauma. CT C-spine : Has not shown any acute fracture, consistent with degenerative changes. Pertinent labs: WBC 12.7, H&H 13.5/42, platelet count:315 , serum sodium 139 serum potassium 3.9 BUN 12 serum creatinine 0.7. Review of Systems General: Reports: 10 or more systems reviewed and unremarkable except in HPI and below Const: Denies: fever(s), chills, body aches, change in appetite or diaphoresis Card: Denies: palpitations, edema, swelling of feet/ankles, dyspnea on exertion, orthopnea or leg pain with exertion Resp: Denies: dyspnea, productive cough, wheezing or pain on inspiration GI: Denies: abdominal pain, nausea, vomiting, diarrhea or constipation : Denies: flank pain or difficulty urinating Musc: Denies: extremity swelling Neuro: Denies: headache(s) or confusion Medications/Allergies Home Medications Medication Instructions Recorded Confirmed Last Taken Type allopurinol 300 mg tablet 600 mg PO BEDTIME 11/23/19 01/27/23 Unknown History furosemide 40 mg tablet (Lasix) 40 mg PO QAM 11/23/19 01/27/23 01/27/23 History guaifenesin 600 mg tablet, 600 mg PO BID 11/23/19 01/27/23 01/27/23 History extended release 12 hr (Mucinex) losartan 100 mg tablet 100 mg PO BEDTIME 11/23/19 01/27/23 01/26/23 History potassium chloride 20 mEq 20 meq PO BEDTIME 11/23/19 01/27/23 01/26/23 History tablet,extended release(part/cryst) (Klor-Con M) limpadeama decongestion to the #1 ea 12/20/20 01/27/23 Unknown Rx lower extremities Diabetic Shoes with 3 pairs of #1 ea 09/12/22 01/27/23 Unknown Rx inserts magnesium hydroxide 400 mg/5 mL 20 ml PO BID PRN constipation #355 12/11/22 01/27/23 Unknown Rx oral suspension (Milk of Magnesia) mL fluticasone 500 mcg-salmeterol 50 1 inh inhalation BID #180 ea 01/07/23 01/27/23 Unknown Rx mcg/dose blistr powdr for inhalation (Advair Diskus) Diabetic shoes with 3 inserts #1 ea 01/14/23 01/27/23 Unknown Rx acetaminophen 500 mg tablet 1,000 mg PO Q6H PRN Pain 01/27/23 01/27/23 Unknown History atorvastatin 20 mg tablet (Lipitor) 20 mg PO BEDTIME 01/27/23 01/27/23 01/26/23 History diphenhydramine HCl 50 mg capsule 50 mg PO BEDTIME 01/27/23 01/27/23 Unknown History empagliflozin 10 mg tablet 10 mg PO QAM 01/27/23 01/27/23 01/27/23 History (Jardiance) escitalopram oxalate 10 mg tablet 10 mg PO BEDTIME 01/27/23 01/27/23 01/26/23 History (Lexapro) hydrocodone 5 mg-acetaminophen 325 1 tab PO Q6H PRN pain #14 tabs 01/27/23 Unknown Rx mg tablet metoprolol tartrate 25 mg tablet 25 mg PO BEDTIME 01/27/23 01/27/23 01/26/23 History omeprazole 40 mg capsule,delayed 40 mg PO DAILY 01/27/23 01/27/23 Unknown History release oxybutynin chloride 5 mg tablet 5 mg PO TID PRN Bladder Spasms 01/27/23 01/27/23 Unknown History Allergies Allergy/AdvReac Type Severity Reaction Status Date / Time morphine Allergy Unknown unknown Verified 01/27/23 15:40 Sulfa (Sulfonamide Allergy heart acts Verified 01/27/23 15:40 Antibiotics) up PFSH Acute PFSH: Medical History (Updated 01/27/23 @ 17:06 by Yasmany Mccann MD) Arrhythmia Atherosclerosis Bilateral occipital neuralgia Chest pain COPD (chronic obstructive pulmonary disease) 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 Some nonspecific T wave changes. normal QRS duration. Dyslipidemia (high LDL; low HDL) Elevated troponin GERD (gastroesophageal reflux disease) Gout Hypertension Leg swelling Peripheral neuropathy PVD (peripheral vascular disease) Type 2 diabetes mellitus Surgical History History of ankle surgery History of surgery on arm History of total left hip replacement Hx of cataract extraction Family History Brother Cancer Lung disease Father Cancer Chronic kidney disease (CKD) Grandfather Cancer Lung disease Mother Dementia Diabetes Family/Other Diabetes Chronic kidney disease (CKD) Other CAD (coronary artery disease) Denies family history of Clotting disorder Suicide Anesthesia complication Bleeding disorder Stroke Social History Smoking and tobacco status: former smoker Quit status (tobacco): has quit using tobacco Year quit tobacco: 1999 Former quit date comment: 2 ppd x 45 years Alcohol intake: never Substance/Drug Use: never Vitals/I&O/Wt Last Vital Signs Pulse 74 01/27/23 16:18 Resp 18 01/27/23 16:18 BP 119/90 01/27/23 16:18 Pulse Ox 98 01/27/23 16:18 O2 Del Method Room Air 01/27/23 15:55 Weight last 48 hrs Weight 136.078 kg Physical Exam Const: COMMON NORMALS: patient oriented x3 HENMT: COMMON NORMALS: normocephalic and atraumatic Resp: COMMON NORMALS: clear to auscultation bilaterally EFFORT & INSPECTION: Yes symmetric chest movement AUSCULTATION: clear to auscultation bilaterally Cardio: COMMON NORMALS: regular rate, regular rhythm, S1 normal heart sound present, S2 normal heart sound present, No gallops present (Cardio), No murmurs present (Cardio), No rub (Cardio) and Peripheral pulses 2+ throughout RATE: regular rate RHYTHM: regular rhythm HEART SOUNDS: S1 normal heart sound present and S2 normal heart sound present PERIPHERAL PULSES: Peripheral pulses 2+ throughout GI: COMMON NORMALS: Normal to inspection, nondistended, normoactive bowel sounds present, Soft to palpation, non-tender, No hepatosplenomegaly present and no masses AUSCULTATION: Yes normoactive bowel sounds PALPATION: Yes Soft to palpation and Yes No hepatosplenomegaly present RECTAL EXAM: Yes deferred Extremity: COMMON NORMALS: no clubbing, cyanosis or edema and no pedal edema Neuro: COMMON NORMALS: patient oriented x3 Data 01/27/23 15:30 01/27/23 15:30 A&P Assessment and plan (1) Fracture of thoracic spine: Qualifiers: Encounter type: initial encounter Fracture morphology: wedge compression Fracture type: closed Thoracic vertebra fracture level: T9 Qualified Code(s): S22.070A - Wedge compression fracture of T9-T10 vertebra, initial encounter for closed fracture (2) Fall: (3) COPD (chronic obstructive pulmonary disease): (4) Hypertension: Qualifiers: Hypertension type: essential hypertension Qualified Code(s): I10 - Essential (primary) hypertension (5) Diabetes: (6) Gout: Plan 83 year old male with past medical history of hypertension COPD diabetes gout was brought in after experiencing fall at home and since then he has not been able to ambulate, according to the patient he fell in his bathroom on , likely from the description it appears to be a mechanical fall, and since then he has been complaining of lower back pain as well as bilateral hip pain, and has not been able to ambulate. CT imaging studies so far has been only significant for: Minimal wedging of the T9 superior and inferior endplates less than 10% each.ubtle fracture in vertical configuration of the right L1 transverse.CT head without contrast has no acute intracranial pathology. CT abdomen and pelvis has shown: Left hip replacement with increased density in induration of the subcutaneous tissues at the level of the hip. Questionably related to surgery versus acute trauma. CT C-spine : Has not shown any acute fracture, consistent with degenerative changes. Assessment: S/p fall: CT abdomen and pelvis has shown: Left hip replacement with increased density in induration of the subcutaneous tissues at the level of the hip. Questionably related to surgery versus acute trauma. Operative on board Pain control PT OT Bowel regimen History of COPD: Continue DuoNebs Budesonide inhaler Gout: Continue allopurinol History of diabetes: Continue SSI, monitor fingerstick glucose History of hypertension: Continue losartan and metoprolol CODE STATUS:AND DVT prophylaxis on subcu Heparin idea worker has been involved in placement of patient Attestations Medical Necessity Statement*: Patient is to be in hospital for management of fall, need for safe discharge.Anticipated length of stay greater than 2 midnights. Coding Level of Care Code Acute Code for [facility] Diagnoses Fracture of thoracic spine S22.070A Encounter type: initial encounter Fracture morphology: wedge compression Fracture type: closed Thoracic vertebra fracture level: T9 Fall W19.XXXA COPD (chronic obstructive pulmonary disease) J44.9 Hypertension I10 Hypertension type: essential hypertension Diabetes E11.9 Gout M10.9
[2023-01-27 17:34] LABS: Glucose Point of Care 119 mg/dL (70-110)
[2023-01-27] MEDS: heparin 5,000 unit/mL INJ 1 mL 5000 UNIT SUBCUT (17:38)
[2023-01-27] MEDS: acetaminophen 325 mg Tablet 650 MG PO (20:37)
[2023-01-27] MEDS: allopurinol 300 mg Tablet 600 MG PO (20:37)
[2023-01-27] MEDS: escitalopram 10 mg Tablet PO (20:38)
[2023-01-27] MEDS: metoprolol tartrate 25 mg Tablet PO (20:38)
[2023-01-27] MEDS: potassium chloride ER 20 mEq Tablet PO (20:38)
[2023-01-27] MEDS: losartan 50 mg Tablet 100 MG PO (20:38)
[2023-01-27] MEDS: atorvastatin 40 mg Tablet 20 MG PO (20:38)
[2023-01-27] MEDS: albuterol 2.5 mg/3 mL Neb INHALATION (20:53)
[2023-01-27] MEDS: budesonide 0.5 mg/2 mL Neb INHALATION (20:53)
[2023-01-27 21:47] LABS: Glucose Point of Care 172 mg/dL (70-110)
[2023-01-28] VITALS (13 sets, daily range): BP systolic 119–169; BP diastolic 71–95; PULSE 74–96; RESP 16–19; TEMP 36.8–36.9; O2SAT 92–96
[2023-01-28] MEDS: acetaminophen 325 mg Tablet 650 MG PO (01:10)
[2023-01-28] MEDS: heparin 5,000 unit/mL INJ 1 mL 5000 UNIT SUBCUT ×3 (01:10→17:12)
[2023-01-28] MEDS: bisacodyl 5 mg Tablet 10 MG PO (03:55)
[2023-01-28 05:09] LABS: Basophils # 0.1 10^3/uL (0.0-0.1); Basophils % 0.6 %; Eosinophils # 0.2 10^3/uL (0.0-0.8); Eosinophils % 2.7 %; Hematocrit 39.4 % (42.0-52.0); Hemoglobin 12.5 g/dL (11.7-16.6); Lymphocytes # 1.6 10^3/uL (0.8-4.8); Lymphocytes % 18.6 %; Mean Corpuscular HGB Conc 31.7 g/dL (30.0-36.0); Mean Corpuscular Hemoglobin 29.4 pg (28.0-34.0); Mean Corpuscular Volume 92.7 fl (80-94); Mean Platelet Volume 9.6 fL (7.4-10.4); Monocytes # 0.7 10^3/uL (0.2-0.9); Neutrophils # 6.14 10^3/uL (1.8-7.7); Neutrophils % 69.5 %; Nucleated Red Blood Cells % 0 %; Platelet Count 315 10^3/cmm (130-400); Red Blood Count 4.25 10^6/uL (4.1-5.3); Red Cell Distribution Width 14.8 % (12.1-15.1); White Blood Count 8.8 10^3/uL (4.0-10.0)
[2023-01-28] MEDS: FUROsemide 40 mg Tablet PO (05:20)
[2023-01-28 05:32] LABS: Anion Gap 14.8 (5-19); Blood Urea Nitrogen 11 mg/dL (8-23); Calcium 8.7 mg/dL (8.5-10.5); Carbon Dioxide 26 mmol/L (22-29); Chloride 100 mmol/L (98-107); Creatinine Clr Calc Pharmacy 103.0821; Glucose 157 mg/dL (65-115); Osmolality Calculated 287 mOsm/kg (285-295); Potassium 3.8 mmol/L (3.5-5.1); Sodium 137 mmol/L (136-145)
--- NOTE | 2023-01-28 06:07 | CTR_ITS ---
PROCEDURE INFORMATION: Exam: CT Abdomen And Pelvis Without Contrast Exam date and time: 01/28/2023 6:24 AM Age: 83 years old Clinical indication: Abdominal pain; Generalized; Prior surgery; Surgery date: 6+ months; Surgery type: Left hip; Additional info: Abd pain acute onset TECHNIQUE: Imaging protocol: Computed tomography of the abdomen and pelvis without contrast. Radiation optimization: All CT scans at this facility use at least one of these dose optimization techniques: automated exposure control; mA and/or kV adjustment per patient size (includes targeted exams where dose is matched to clinical indication); or iterative reconstruction. REPORTING DATA: Count of CT and Cardiac NM exams in prior 12 months: This patient has received 7 known CTs and 0 known cardiac nuclear medicine studies in the 12 months prior to the current study. COMPARISON: CT abdomen pelvis con [id number] 01/27/2023 2:00 PM RADIATION DOSE METRICS: Total DLP (mGy-cm): 1343.54 FINDINGS: Diaphragm: Elevated left diaphragm. Liver: Normal. No mass. Gallbladder and bile ducts: Normal. No calcified stones. No ductal dilation. Pancreas: Normal. No ductal dilation. Spleen: Normal. No splenomegaly. Adrenal glands: Normal. No mass. Kidneys and ureters: Normal. No hydronephrosis. Stomach and bowel: Unremarkable. No obstruction. No mucosal thickening. Appendix: No evidence of appendicitis. Intraperitoneal space: Unremarkable. No free air. No significant fluid collection. Vasculature: Unremarkable. No abdominal aortic aneurysm. Lymph nodes: Unremarkable. No enlarged lymph nodes. Urinary bladder: Hahn catheter in the bladder. Bladder is decompressed. Reproductive: Moderate severity prostatomegaly. Bones/joints: Negative for acute fractures. Left hip arthroplasty alignment is unremarkable. Soft tissues: Unremarkable. CT/CT abdomen pelvis [facility] [id number] IMPRESSION: 1. Negative for acute abdominopelvic pathology. 2. No changes from comparison.
[2023-01-28] MEDS: ketorolac 30 mg/mL INJ 15 MG IVP (06:14)
[2023-01-28 06:54] LABS: Glucose Point of Care 166 mg/dL (70-110)
[2023-01-28] MEDS: pantoprazole DR 40 mg Tablet PO (08:16)
[2023-01-28] MEDS: insulin lispro 100 unit/1 mL SUBCUT ×3 (08:40→18:07)
--- NOTE | 2023-01-28 08:53 | P.CONIM_ITS ---
Providers/Reason For Consult Consulting Physician/Specialty*: Manju Castillo MD Reason for Consult*: Bilateral hip pain Requesting Physician: Radha Garvey MD Attending Physician: Rashel Kendall MD Primary Care Provider: Trever Rucker DO History of Present Illness History of Present Illness Junior Don Urbina is a 83 year old male who recently has history of falling. By further orthopedic history, the patient had a left total hip arthroplasty done, he states, in 1971. He notes that it has been a bit problematic for him over the past several years, but nothing about his recent falls has changed the nature of the issues with his hip. Today, he is complaining primarily of low back pain. He notes that he is unable to remain at home as his is unable to care for him. He has had several falls in the recent past. Additionally, the patient has multiple medical comorbidities including hypertension, COPD, di abetes, and gout. The patient also has a history of lymphedema. Imaging on presentation to the emergency department included CT imaging of the spine demonstrating minimal wedging of the T9 superior and inferior endplates with subtle fracture of right L1 transverse process CT of the head was negative. Pelvis demonstrated left hip replacement with increased density and induration of the subcutaneous tissues at the level of the hip which was felt to be consistent with either recent surgery or acute trauma. Likely, this is trauma from his fall. Review of Systems General: Reports: 10 or more systems reviewed and unremarkable except in HPI and below Const: Denies: fever(s), chills, body aches, change in appetite or diaphoresis Eyes: Denies: photophobia ENMT: Denies: throat pain or dental pain Card: Denies: chest pain, palpitations, edema, swelling of feet/ankles, dyspnea on exertion, orthopnea or leg pain with exertion Resp: Denies: dyspnea, productive cough, wheezing or pain on inspiration GI: Denies: abdominal pain, nausea, vomiting, diarrhea or constipation : Denies: flank pain, difficulty urinating or dysuria Musc: Reports: neck pain and back pain; Denies: extremity swelling Skin/Breast: Denies: rash Neuro: Denies: headache(s) or confusion All/Imm: Denies: acute wheezing Medications/Allergies Home Medications Medication Instructions Recorded Confirmed Last Taken Type allopurinol 300 mg tablet 600 mg PO BEDTIME 11/23/19 01/27/23 Unknown History furosemide 40 mg tablet (Lasix) 40 mg PO QAM 11/23/19 01/27/23 01/27/23 History guaifenesin 600 mg tablet, 600 mg PO BID 11/23/19 01/27/23 01/27/23 History extended release 12 hr (Mucinex) losartan 100 mg tablet 100 mg PO BEDTIME 11/23/19 01/27/23 01/26/23 History potassium chloride 20 mEq 20 meq PO BEDTIME 11/23/19 01/27/23 01/26/23 History tablet,extended release(part/cryst) (Klor-Con M) limpadeama decongestion to the #1 ea 12/20/20 01/27/23 Unknown Rx lower extremities Diabetic Shoes with 3 pairs of #1 ea 09/12/22 01/27/23 Unknown Rx inserts magnesium hydroxide 400 mg/5 mL 20 ml PO BID PRN constipation #355 12/11/22 01/27/23 Unknown Rx oral suspension (Milk of Magnesia) mL fluticasone 500 mcg-salmeterol 50 1 inh inhalation BID #180 ea 01/07/23 01/27/23 Unknown Rx mcg/dose blistr powdr for inhalation (Advair Diskus) Diabetic shoes with 3 inserts #1 ea 01/14/23 01/27/23 Unknown Rx acetaminophen 500 mg tablet 1,000 mg PO Q6H PRN Pain 01/27/23 01/27/23 Unknown History atorvastatin 20 mg tablet (Lipitor) 20 mg PO BEDTIME 01/27/23 01/27/23 01/26/23 History diphenhydramine HCl 50 mg capsule 50 mg PO BEDTIME 01/27/23 01/27/23 Unknown History empagliflozin 10 mg tablet 10 mg PO QAM 01/27/23 01/27/23 01/27/23 History (Jardiance) escitalopram oxalate 10 mg tablet 10 mg PO BEDTIME 01/27/23 01/27/23 01/26/23 History (Lexapro) hydrocodone 5 mg-acetaminophen 325 1 tab PO Q6H PRN pain #14 tabs 01/27/23 Unknown Rx mg tablet metoprolol tartrate 25 mg tablet 25 mg PO BEDTIME 01/27/23 01/27/23 01/26/23 History omeprazole 40 mg capsule,delayed 40 mg PO DAILY 01/27/23 01/27/23 Unknown History release oxybutynin chloride 5 mg tablet 5 mg PO TID PRN Bladder Spasms 01/27/23 01/27/23 Unknown History Allergies Allergy/AdvReac Type Severity Reaction Status Date / Time morphine Allergy Unknown unknown Verified 01/27/23 15:40 Sulfa (Sulfonamide Allergy heart acts Verified 01/27/23 15:40 Antibiotics) up Current Medications Generic Name Dose Route Start Last Admin Trade Name Freq PRN Reason Stop Dose Admin Acetaminophen 650 mg 01/27/23 17:00 01/28/23 01:10 Acetaminophen 325 Mg Tablet PO 650 mg Q6H PRN Administration Mild/Mod Pain Or Temp >/= 101 Albuterol Sulfate 2.5 mg 01/27/23 20:00 01/27/23 20:53 Albuterol 2.5 Mg/3 Ml Neb INHALATION 2.5 mg QID.RESPIRATORY PRICE Administration Allopurinol 600 mg 01/27/23 21:00 01/27/23 20:37 Allopurinol 300 Mg Tablet PO 600 mg BEDTIME PRICE Administration Atorvastatin Calcium 20 mg 01/27/23 21:00 01/27/23 20:38 Atorvastatin 40 Mg Tablet PO 20 mg BEDTIME PRICE Administration Bisacodyl 10 mg 01/27/23 17:00 01/28/23 03:55 Bisacodyl 5 Mg Tablet PO 10 mg DAILY PRN Administration Constipation (see protocol) Protocol Budesonide 0.5 mg 01/27/23 20:00 01/27/23 20:53 Budesonide 0.5 Mg/2 Ml Neb INHALATION 0.5 mg BID.RESPIRATORY PRICE Administration Escitalopram Oxalate 10 mg 01/27/23 21:00 01/27/23 20:38 Escitalopram 10 Mg Tablet PO 10 mg BEDTIME PRICE Administration Furosemide 40 mg 01/28/23 06:00 01/28/23 05:20 Furosemide 40 Mg Tablet PO 40 mg QAM PRICE Administration Heparin Sodium (Porcine) 5,000 unit 01/27/23 17:30 01/28/23 08:17 Heparin 5,000 Unit/Ml Inj 1 Ml SUBCUT 5,000 unit Q8H PRICE Administration Insulin Human Lispro 0 unit 01/27/23 18:00 01/28/23 08:40 Insulin Lispro 100 Unit/1 Ml SUBCUT 2 unit TIDWM PRICE Administration Protocol Losartan Potassium 100 mg 01/27/23 21:00 01/27/23 20:38 Losartan 50 Mg Tablet PO 100 mg BEDTIME PRICE Administration Metoprolol Tartrate 25 mg 01/27/23 21:00 01/27/23 20:38 Metoprolol Tartrate 25 Mg Tablet PO 25 mg BEDTIME PRICE Administration Pantoprazole Sodium 40 mg 01/28/23 09:00 01/28/23 08:[address] 40 Mg Tablet PO 40 mg DAILY PRICE Administration Potassium Chloride 20 meq 01/27/23 21:00 01/27/23 20:38 Potassium Chloride Er 20 Meq Tablet PO 20 meq BEDTIME PRICE Administration PFSH Acute PFSH: Medical History (Updated 01/28/23 @ 19:18 by Manju Castillo MD) Arrhythmia Atherosclerosis Bilateral occipital neuralgia Chest pain COPD (chronic obstructive pulmonary disease) 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 Some nonspecific T wave changes. normal QRS duration. Dyslipidemia (high LDL; low HDL) Elevated troponin GERD (gastroesophageal reflux disease) Gout Hypertension Leg swelling Peripheral neuropathy PVD (peripheral vascular disease) Type 2 diabetes mellitus Surgical History (Updated 01/28/23 @ 19:18 by Manju Castillo MD) History of ankle surgery History of surgery on arm History of total left hip replacement Hx of cataract extraction Family History Brother Cancer Lung disease Father Cancer Chronic kidney disease (CKD) Grandfather Cancer Lung disease Mother Dementia Diabetes Family/Other Diabetes Chronic kidney disease (CKD) Other CAD (coronary artery disease) Denies family history of Clotting disorder Suicide Anesthesia complication Bleeding disorder Stroke Social History Smoking and tobacco status: former smoker Quit status (tobacco): has quit using tobacco Year quit tobacco: 1999 Former quit date comment: 2 ppd x 45 years Alcohol intake: never Substance/Drug Use: never Dietary Habits: Current diet type/program: diabetic Caffeine: Yes Vitals/I&O/Wt Last Vital Signs Temp 98.2 F 01/28/23 08:00 Pulse 74 01/28/23 08:00 Resp 18 01/28/23 08:00 BP 163/75 05/15/23 08:00 Pulse Ox 94 01/28/23 08:00 O2 Del Method Room Air 01/28/23 08:00 01/27/23 01/28/23 01/28/23 22:59 06:59 14:59 Output Total 750 / 750 600 / 1350 Balance -750 / -750 -600 / -1350 Weight last 48 hrs Weight 300 lb Physical Exam Const: COMMON NORMALS: no acute distress, patient oriented x3 and alert GENERAL APPEARANCE: cooperative and comfortable ORIENTATION/CONSCIOUSNESS: Yes awake HENMT: COMMON NORMALS: normocephalic and atraumatic HEAD & SCALP: normocephalic and atraumatic Eye: GENERAL EYE: appearance normal, both eyes and all related structures Resp: COMMON NORMALS: normal respiratory effort EFFORT & INSPECTION: Yes able to speak in complete sentences and Yes symmetric chest movement Extremity: LEFT LOWER EXTREMITY: Yes hip joint (Range of motion is nontender.) Left hip: Yes ROM (Gentle range of motion demonstrates no pain.) and Yes neurovascular exam (Intact distally. No evidence of DVT.) Neuro: COMMON NORMALS: patient oriented x3 SENSORIUM/ORIENTATION: Yes alert Psych: COMMON NORMALS: mental status grossly normal APPEARANCE: Yes grossly normal ATTITUDE: Yes calm and Yes engaged ATTENTION/CONCENTRATION: Yes attention grossly intact Skin: COMMON NORMALS: no rashes or lesions noted GENERAL SKIN EXAM: no rashes or lesions noted Data 01/28/23 04:29 01/28/23 04:29 Xray Ortho: My impression: X-rays were obtained in the emergency department. Imaging studies include an AP pelvis as well as isolated AP and lateral of the left and right hips. AP pelvis demonstrates the patient is status post left total hip arthroplasty. This was with trochanteric osteotomy and is a Charnley style prosthesis. There is obvious wear within the polyethylene, and there is concern for slight protrusio visualized on the AP pelvis and also on the isolated AP and lateral of the left hip. The right hip demonstrates no evidence of fracture. The left hip demonstr ates the trochanteric osteotomy is surprisingly healed. There are no broken wires. Again there is wear of the polyethylene, but no obvious complication with the prosthesis or evidence of absolute loosening. A&P Assessment and plan (1) Chronic left hip pain: Patient was admitted after multiple falls. He states that his current hip pain has been chronic and remains unchanged since his falls. His primary concern at the moment is of back pain. I recommend that further spinal evaluation be accomplished. He also realizes that he will be unable to stay at home as his is unable to care for him. He is looking to at least temporarily be placed in long-term. (2) Thoracic spine pain: Consult Attestations Medical Necessity Statement: Patient remains in hospital for further evaluation. Coding Level of Care Code Acute Code for [facility] Diagnoses Chronic left hip pain M25.552; G89.29 Thoracic spine pain M54.6
--- NOTE | 2023-01-28 09:27 | DCPLANNER ---
Addendum entered by Liss Mills 01/31/23 12:17: Patient is in hospital, a follow up appointment will be made when patient discharges from hospital. Original Note: staffing branch manager had message to schedule a follow up appointment for patient with ortho. staffing branch manager sent patients information to the front office staff at ortho. Patients information will be printed and reviewed. Clinic will call patient with appointment information.
[2023-01-28] MEDS: ondansetron 2 mg/ML SDV 2 mL 4 MG IVP ×2 (09:57→17:45)
[2023-01-28 11:38] LABS: Glucose Point of Care 172 mg/dL (70-110)
[2023-01-28] MEDS: oxyCODONE 5 mg IR Tab/Cap PO ×2 (12:40→18:16)
[2023-01-28] MEDS: lactulose oral liq 20 gm/30 mL UDC PO (12:41)
--- NOTE | 2023-01-28 12:51 | P.PN_ITS ---
Subjective Subjective: Patient is complaining abdominal pain, CT abdomen pelvis did not show any acute pathological findings Endorsing constipation Given lactulose Change morphine to oxycodone However I do not think he has true allergy to morphine stating that his heart rate would misbehave with morphine Laying supine Vitals/I&O/Wt Last Vital Signs Temp 98.2 F 01/28/23 12:00 Pulse 75 01/28/23 12:00 Resp 16 01/28/23 12:40 BP 159/76 01/28/23 12:00 Pulse Ox 94 01/28/23 12:00 O2 Del Method Room Air 01/28/23 12:00 01/27/23 01/28/23 01/28/23 22:59 06:59 14:59 Intake Total 240 / 240 Output Total 750 / 750 600 / 1350 Balance -750 / -750 -600 / -1350 240 / 240 Weight last 48 hrs Weight 136.078 kg Physical Exam Narrative: Laying supine Hemodynamically stable Currently on room air Abdomen soft, mild tenderness left lower quadrant Bowel sounds present GCS 15 S1, S2 Awake and alert Nonfocal neuro exam Data 01/28/23 04:29 01/28/23 04:29 A&P Assessment and plan (1) Gout: (2) Diabetes: (3) Fall: (4) Fracture of thoracic spine: Qualifiers: Encounter type: initial encounter Fracture morphology: wedge compression Fracture type: closed Thoracic vertebra fracture level: T9 Qualified Code(s): S22.070A - Wedge compression fracture of T9-T10 vertebra, initial encounter for closed fracture (5) Restrictive airway disease: (6) LRTI (lower respiratory tract infection): (7) Ex-smoker: (8) COPD (chronic obstructive pulmonary disease): (9) Leg swelling: (10) Callus of foot: (11) Onychodystrophy: Plan Constipation, fell at home, patient has diabetic neuropathy T9 wedging noted, We will follow-up with orthopedics to see if any MRI spine My suspicion to order MRI spine to rule cauda equina will stay low COPD without acute exacerbation doing well on room air History of gout continue allopurinol DNR/DNI Currently on heparin for DVT prophylaxis Diabetic foot calluses: Onychodystrophy: Follows up with Dr. Richmond Patient will need placement, Attestations 2 Medical Necessity Statement*: Awaiting placement Diagnoses Gout M10.9 Diabetes E11.9 Fall W19.XXXA Fracture of thoracic spine S22.070A Encounter type: initial encounter Fracture morphology: wedge compression Fracture type: closed Thoracic vertebra fracture level: T9 Restrictive airway disease J98.4 LRTI (lower respiratory tract infection) J22 Ex-smoker Z87.891 COPD (chronic obstructive pulmonary disease) J44.9 Leg swelling M79.89 Callus of foot L84 Onychodystrophy L60.3
[2023-01-28 17:56] LABS: Glucose Point of Care 180 mg/dL (70-110)
[2023-01-28 21:07] LABS: Glucose Point of Care 148 mg/dL (70-110)
[2023-01-28] MEDS: potassium chloride ER 20 mEq Tablet PO (21:17)
[2023-01-28] MEDS: allopurinol 300 mg Tablet 600 MG PO (21:17)
[2023-01-28] MEDS: escitalopram 10 mg Tablet PO (21:17)
[2023-01-28] MEDS: atorvastatin 40 mg Tablet 20 MG PO (21:17)
[2023-01-28] MEDS: losartan 50 mg Tablet 100 MG PO (21:17)
[2023-01-28] MEDS: metoprolol tartrate 25 mg Tablet PO (21:17)
[2023-01-29] VITALS (11 sets, daily range): BP systolic 94–140; BP diastolic 57–74; PULSE 71–92; RESP 16–19; TEMP 36.7–36.9; O2SAT 90–94
[2023-01-29] MEDS: heparin 5,000 unit/mL INJ 1 mL 5000 UNIT SUBCUT ×3 (02:18→17:04)
[2023-01-29 04:52] LABS: Basophils # 0.1 10^3/uL (0.0-0.1); Basophils % 0.4 %; Eosinophils # 0.1 10^3/uL (0.0-0.8); Eosinophils % 1.1 %; Hematocrit 38.2 % (42.0-52.0); Hemoglobin 12.2 g/dL (11.7-16.6); Lymphocytes # 2.1 10^3/uL (0.8-4.8); Lymphocytes % 16.1 %; Mean Corpuscular HGB Conc 31.9 g/dL (30.0-36.0); Mean Corpuscular Hemoglobin 29.7 pg (28.0-34.0); Mean Corpuscular Volume 92.9 fl (80-94); Mean Platelet Volume 9.4 fL (7.4-10.4); Monocytes # 1.2 10^3/uL (0.2-0.9); Monocytes % 8.8 %; Neutrophils # 9.57 10^3/uL (1.8-7.7); Neutrophils % 72.9 %; Nucleated Red Blood Cells % 0 %; Platelet Count 336 10^3/cmm (130-400); Red Blood Count 4.11 10^6/uL (4.1-5.3); Red Cell Distribution Width 14.8 % (12.1-15.1); White Blood Count 13.1 10^3/uL (4.0-10.0)
[2023-01-29] MEDS: FUROsemide 40 mg Tablet PO (05:03)
[2023-01-29 05:11] LABS: Anion Gap 13.6 (5-19); Blood Urea Nitrogen 13 mg/dL (8-23); Calcium 8.7 mg/dL (8.5-10.5); Carbon Dioxide 28 mmol/L (22-29); Chloride 98 mmol/L (98-107); Creatinine Clr Calc Pharmacy 103.0821; Glucose 127 mg/dL (65-115); Osmolality Calculated 284 mOsm/kg (285-295); Potassium 3.6 mmol/L (3.5-5.1); Sodium 136 mmol/L (136-145)
[2023-01-29 06:29] LABS: Glucose Point of Care 130 mg/dL (70-110)
[2023-01-29] MEDS: albuterol 2.5 mg/3 mL Neb INHALATION ×3 (08:22→20:42)
[2023-01-29] MEDS: budesonide 0.5 mg/2 mL Neb INHALATION ×2 (08:22→20:41)
--- NOTE | 2023-01-29 08:25 | MR_ITS ---
WS: [id number] MRI THORACIC SPINE WITHOUT CONTRAST TECHNIQUE: Sagittal T1, T2 and STIR imaging. Axial T2 imaging. Noncontrast imaging obtained. CLINICAL INFORMATION: back pain COMPARISON: CT thoracic January 27, 2023 FINDINGS: Images significantly degraded by patient motion artifact. Mild thoracic curve. Mild thoracic kyphosis. No acute appearing compression fractures. Disc space hei ghts and vertebral body heights appear relatively well-preserved. Mild disc space narrowing in the mi d thoracic spine. No edema in the vertebral bodies. No high-grade central canal stenosis. Cord signal appears normal considering motion. Moderate spondylitic changes thoracic spine. Mild to moderate fac et arthropathy in the lower thoracic spine. Normal caliber thoracic aorta. Adrenal glands are normal. MR/MR thoracic spin wo con* [id number] IMPRESSION: Images significantly degraded by motion artifact. 1. Mild thoracic kyphosis. No acute appearing compression fractures. No verteb ral body edema. 2. No high-grade central canal narrowing. Cord signal appears normal consideri ng motion artifact. 3. A few tiny central protrusions in the upper and mid thoracic spine without significant central canal stenosis. 4. Moderate facet arthropathy lower thoracic spine.
--- NOTE | 2023-01-29 08:25 | MR_ITS ---
WS: [id number] MRI LUMBAR SPINE NONCONTRAST TECHNIQUE: Sagittal T1, T2 and STIR imaging. Axial T1 and T2 imaging. CLINICAL INFORMATION: back pain COMPARISON: None. FINDINGS: Lumbar curve. No acute compression. No high-grade central canal stenosis. Previously described RIGHT L1 transverse process fracture better visualized on the recent CT. L1-L2: No significant disc bulging. Moderate facet arthropathy. Spinal canal and foramen are patent. Slight narrowing of the LEFT subarticular recess. Mild LEFT foraminal narrowing. Tiny LEFT foraminal protrusion. L2-L3: Mild annular bulging. Moderate facet arthropathy. Mild LEFT and no significant RIGHT foraminal narrowing. Moderate facet arthropathy. Slight narrowing of the LEFT subarticular recess. L3-L4: Mild annular bulging. Slight narrowing of the LEFT subarticular recess. Moderate facet arthrop athy. Mild RIGHT greater than LEFT foraminal narrowing. L4-L5: Mild annular bulging. Slight impingement RIGHT subarticular recess. Mild RIGHT and no signific ant LEFT foraminal narrowing. Moderate facet arthropathy. L5-S1: Mild disc bulging and osteophytic ridging. Spinal canal and foramen are patent. Mild facet art hropathy. Visualized pelvic bony structures: Normal. Paravertebral soft tissues: Normal. Mild central canal stenosis visualized in the cervical spine materials development engineer imaging at C3-C6. Subcutaneous edema in the dorsal subcutaneous soft tissues likely dependent. MR/MR lumbar spine wo con* [id number] IMPRESSION: 1. Mild lumbar curve. No acute compression. No high-grade central canal stenos is. 2. RIGHT L1 transverse process fracture better visualized on the recent CT. 3. Mild annular bulging L4-L5 impinges the traversing RIGHT L5 nerve root in t he subarticular recess. Mild RIGHT L4-L5 foraminal narrowing. 4. Tiny LEFT foraminal protrusion L1-L2 with mild LEFT L1-L2 foraminal narrowi ng. 5. Mild RIGHT L2-L3 and RIGHT greater than LEFT L3-L4 foraminal narrowing. 6. Mild narrowing of the LEFT L2-L3 and LEFT L3-L4 subarticular recess. 7. Moderate facet arthropathy L3-L5.
[2023-01-29] MEDS: oxyCODONE 5 mg IR Tab/Cap PO (10:35)
[2023-01-29] MEDS: pantoprazole DR 40 mg Tablet PO (10:35)
[2023-01-29 11:24] LABS: Glucose Point of Care 181 mg/dL (70-110)
--- NOTE | 2023-01-29 12:56 | PM.PN ---
Subjective Subjective: Patient is complaining of right shoulder pain on ambulation otherwise nothing at rest Hahn catheter is chronic It was changed on first of this month Patient wears ALONSO hose stockings Requested MRI thoracic and lumbar region Vitals/I&O/Wt Last Vital Signs Temp 98.4 F 01/29/23 07:50 Pulse 78 01/29/23 08:22 Resp 16 01/29/23 10:35 BP 140/70 01/29/23 07:50 Pulse Ox 94 01/29/23 08:22 O2 Del Method Room Air 01/29/23 08:22 01/28/23 01/29/23 01/29/23 22:59 06:59 14:59 Output Total 800 / 800 100 / 900 Balance -800 / -440 -100 / -540 Weight last 48 hrs Weight 136.078 kg Physical Exam Narrative: Awake and alert Laying supine Euvolemic Currently on room air Limited range of motion right shoulder joint Abdomen soft Lower extremity mild edema Chronic indwelling catheter Data 01/29/23 04:10 01/29/23 04:10 A&P Assessment and plan (1) Thoracic spine pain: (2) History of total left hip replacement: (3) Chronic left hip pain: (4) Gout: (5) Diabetes: (6) Fall: (7) Fracture of thoracic spine: Qualifiers: Encounter type: initial encounter Fracture morphology: wedge compression Fracture type: closed Thoracic vertebra fracture level: T9 Qualified Code(s): S22.070A - Wedge compression fracture of T9-T10 vertebra, initial encounter for closed fracture (8) Restrictive airway disease: (9) Callus of foot: (10) COPD (chronic obstructive pulmonary disease): Plan Falls at home Back pain Requested MRI thoracic and lumbar region Constipation: We will give him lactulose this morning COPD without acute exacerbation doing well on room Continue Lopurin all for his gout Right shoulder limited range of motion secondary to osteoarthritic changes versus rotator cuff no active fracture Diabetic foot calluses follows up with Dr. Richmond outpatient Awaiting placement Patient wears ALONSO hose stockings for his lymphedema Attestations Medical Necessity Statement*: Continue medical management Diagnoses Thoracic spine pain M54.6 History of total left hip replacement Z96.642 Chronic left hip pain M25.552; G89.29 Gout M10.9 Diabetes E11.9 Fall W19.XXXA Fracture of thoracic spine S22.070A Encounter type: initial encounter Fracture morphology: wedge compression Fracture type: closed Thoracic vertebra fracture level: T9 Restrictive airway disease J98.4 Callus of foot L84 COPD (chronic obstructive pulmonary disease) J44.9
[2023-01-29] MEDS: insulin lispro 100 unit/1 mL SUBCUT (13:07)
[2023-01-29] MEDS: lactulose oral liq 20 gm/30 mL UDC 10 GM PO (13:07)
[2023-01-29 16:51] LABS: Glucose Point of Care 122 mg/dL (70-110)
[2023-01-29] MEDS: allopurinol 300 mg Tablet 600 MG PO (21:31)
[2023-01-29] MEDS: atorvastatin 40 mg Tablet 20 MG PO (21:32)
[2023-01-29] MEDS: potassium chloride ER 20 mEq Tablet PO (21:32)
[2023-01-29] MEDS: losartan 50 mg Tablet 100 MG PO (21:32)
[2023-01-29] MEDS: metoprolol tartrate 25 mg Tablet PO (21:32)
[2023-01-29] MEDS: escitalopram 10 mg Tablet PO (21:32)
[2023-01-29 21:40] LABS: Glucose Point of Care 132 mg/dL (70-110)
[2023-01-30] VITALS (13 sets, daily range): BP systolic 105–142; BP diastolic 54–77; PULSE 72–91; RESP 15–20; TEMP 36.7–37.1; O2SAT 92–96
[2023-01-30] MEDS: heparin 5,000 unit/mL INJ 1 mL 5000 UNIT SUBCUT ×3 (01:09→17:42)
[2023-01-30 02:18] LABS: Basophils # 0.1 10^3/uL (0.0-0.1); Basophils % 0.6 %; Eosinophils # 0.4 10^3/uL (0.0-0.8); Eosinophils % 3.5 %; Hematocrit 37.1 % (42.0-52.0); Hemoglobin 11.8 g/dL (11.7-16.6); Lymphocytes # 2.4 10^3/uL (0.8-4.8); Lymphocytes % 21.6 %; Mean Corpuscular HGB Conc 31.8 g/dL (30.0-36.0); Mean Corpuscular Hemoglobin 29.9 pg (28.0-34.0); Mean Corpuscular Volume 93.9 fl (80-94); Mean Platelet Volume 9.2 fL (7.4-10.4); Monocytes % 9.4 %; Neutrophils # 7.08 10^3/uL (1.8-7.7); Neutrophils % 64.4 %; Nucleated Red Blood Cells % 0 %; Platelet Count 302 10^3/cmm (130-400); Red Blood Count 3.95 10^6/uL (4.1-5.3); Red Cell Distribution Width 14.9 % (12.1-15.1)
[2023-01-30 02:41] LABS: Anion Gap 13.2 (5-19); Blood Urea Nitrogen 9 mg/dL (8-23); Calcium 8.7 mg/dL (8.5-10.5); Carbon Dioxide 29 mmol/L (22-29); Chloride 100 mmol/L (98-107); Creatinine Clr Calc Pharmacy 103.0821; Glucose 115 mg/dL (65-115); Osmolality Calculated 286 mOsm/kg (285-295); Potassium 4.2 mmol/L (3.5-5.1); Sodium 138 mmol/L (136-145)
[2023-01-30] MEDS: FUROsemide 40 mg Tablet PO (05:20)
[2023-01-30 06:41] LABS: Glucose Point of Care 138 mg/dL (70-110)
[2023-01-30] MEDS: pantoprazole DR 40 mg Tablet PO (08:33)
--- NOTE | 2023-01-30 09:49 | PC.SOCIAL ---
IMM Update pg 2 of IMM updated and reviewed w/ patient. Copy provided and Copy dated, initialed and placed in chart.
--- NOTE | 2023-01-30 10:05 | PC.NURSE ---
Collected UA from catheter bag at 1000. Sent to lab via tube system. Awaiting results.
[2023-01-30 10:29] LABS: Add Urine Microscopic? YES; Bilirubin Urine Neg (Negative); Blood Urine Neg (Negative); Glucose Urine UA Norm (Normal); Ketones Urine Negative (Negative); Leukocyte Esterase Urine Trace (Negative); Nitrate Urine Positive (Negative); Protein Urine Neg (Negative); RBC Urine 0-4 /hpf (0-2); Specific Gravity, Urine 1.015 (1.005-1.030); Urine Color Yellow (Yellow); Urobilinogen Urine Norm (Negative); pH Urine 6.5 (5-7)
[2023-01-30 10:30] LABS: Bacteria Urine 1+ /hpf; Mucus Urine TRACE /hpf; Squamous Epithelial Cell Urine RARE /hpf (0-5)
[2023-01-30 10:49] LABS: Glucose Point of Care 208 mg/dL (70-110)
[2023-01-30] MEDS: albuterol 2.5 mg/3 mL Neb INHALATION (11:22)
--- NOTE | 2023-01-30 11:34 | PC.NURSE ---
Enema - Explained to patient that an enema has been ordered and we were going to do this. Pt requested to wait until after lunch. Report given to Pallavi.
[2023-01-30] MEDS: insulin lispro 100 unit/1 mL SUBCUT ×2 (11:47→17:42)
[2023-01-30] MEDS: oxyCODONE 5 mg IR Tab/Cap PO ×2 (13:30→18:32)
--- NOTE | 2023-01-30 13:37 | P.PN_ITS ---
Subjective Subjective: Patient will get enema today No bowel movement with lactulose that was given yesterday I will repeat the dose of lactulose as well Patient is awaiting placement Spoke with the corrections caseworker as well Nurse updated regarding enema indication Patient is stating that he noticed some discharge around his urethral meatus around Hahn catheter, I have requested another UA Patient is stating that he follows up with Dr. Grace in [place] for his monthly Hahn catheter exchange MRI did not show any signs of cauda equina Vitals/I&O/Wt Last Vital Signs Temp 98.1 F 01/30/23 11:59 Pulse 91 01/30/23 11:59 Resp 15 01/30/23 13:30 BP 110/54 01/30/23 11:59 Pulse Ox 92 01/30/23 11:59 O2 Del Method Room Air 01/30/23 11:59 01/29/23 01/30/23 01/30/23 22:59 06:59 14:59 Intake Total 714 / 714 Output Total 1200 / 1200 350 / 1550 1500 / 1500 Balance -1200 / -1200 -350 / -1550 -786 / -786 Physical Exam Narrative: Patient laying supine No active complaints Euvolemic Abdomen soft I did not see any drainage on his Hahn catheter Urine is dilute colored Yellow Lower extremity no active swelling Patient is wearing ALONSO hose Currently on room air S1, S2 variable Data 01/30/23 01:50 01/30/23 01:50 A&P Assessment and plan (1) Thoracic spine pain: (2) History of total left hip replacement: (3) Chronic left hip pain: (4) Gout: (5) Diabetes: (6) Fall: (7) Restrictive airway disease: (8) Leg swelling: (9) Onychodystrophy: (10) Lymphedema of both lower extremities: (11) Chronic indwelling Hahn catheter: Plan Cloudy urine We will asked nurse to replace Hahn catheter, in case of any difficulty might consult Dr. Saunders Patient sustained a fall at home, physical deconditioning: He might have to agree for co-pay in order to get rehab as per the corrections caseworker Chronic degenerative joint disease, no active signs of cauda equina, medical management so far Constipation: Enema today, give another dose of lactulose Hypertension: Continue losartan, metoprolol Gout: Continue allopurinol Diabetic diet DNR/DNI DVT prophylaxis heparin For his lymphedema patient uses ALONSO hose stockings Attestations Medical Necessity Statement*: Plan to discharge later today versus tomorrow Diagnoses Thoracic spine pain M54.6 History of total left hip replacement Z96.642 Chronic left hip pain M25.552; G89.29 Gout M10.9 Diabetes E11.9 Fall W19.XXXA Restrictive airway disease J98.4 Leg swelling M79.89 Onychodystrophy L60.3 Lymphedema of both lower extremities I89.0 Chronic indwelling Hahn catheter Z97.8
--- NOTE | 2023-01-30 14:04 | PC.SOCIAL ---
IMM Update pg 2 of IMM updated and reviewed w/ patient. Copy provided and Copy dated, initialed and placed in chart.
[2023-01-30] MEDS: lactulose oral liq 20 gm/30 mL UDC 10 GM PO (16:07)
[2023-01-30 16:37] LABS: Glucose Point of Care 152 mg/dL (70-110)
[2023-01-30] MEDS: nystatin powder 15 gm Btl 1 APPLIC TOPICAL (17:43)
[2023-01-30] MEDS: losartan 50 mg Tablet 100 MG PO (20:47)
[2023-01-30] MEDS: escitalopram 10 mg Tablet PO (20:47)
[2023-01-30] MEDS: allopurinol 300 mg Tablet 600 MG PO (20:47)
[2023-01-30] MEDS: metoprolol tartrate 25 mg Tablet PO (20:47)
[2023-01-30] MEDS: potassium chloride ER 20 mEq Tablet PO (20:48)
[2023-01-30] MEDS: atorvastatin 40 mg Tablet 20 MG PO (20:48)
[2023-01-30 21:00] LABS: Glucose Point of Care 133 mg/dL (70-110)
[2023-01-31] VITALS (10 sets, daily range): BP systolic 110–134; BP diastolic 64–71; PULSE 67–87; RESP 16–18; TEMP 36.5–36.8; O2SAT 93–97
[2023-01-31] MEDS: heparin 5,000 unit/mL INJ 1 mL 5000 UNIT SUBCUT ×3 (01:41→17:18)
[2023-01-31 04:13] LABS: Basophils # 0.1 10^3/uL (0.0-0.1); Basophils % 0.5 %; Eosinophils # 0.4 10^3/uL (0.0-0.8); Eosinophils % 4.2 %; Hematocrit 37.2 % (42.0-52.0); Hemoglobin 11.9 g/dL (11.7-16.6); Lymphocytes # 2.1 10^3/uL (0.8-4.8); Lymphocytes % 21.6 %; Mean Corpuscular Hemoglobin 29.6 pg (28.0-34.0); Mean Corpuscular Volume 92.5 fl (80-94); Mean Platelet Volume 9.4 fL (7.4-10.4); Monocytes % 10.3 %; Neutrophils # 6.11 10^3/uL (1.8-7.7); Neutrophils % 62.7 %; Nucleated Red Blood Cells % 0 %; Platelet Count 314 10^3/cmm (130-400); Red Blood Count 4.02 10^6/uL (4.1-5.3); Red Cell Distribution Width 14.6 % (12.1-15.1); White Blood Count 9.8 10^3/uL (4.0-10.0)
[2023-01-31 04:47] LABS: Anion Gap 12.9 (5-19); Blood Urea Nitrogen 12 mg/dL (8-23); Calcium 8.7 mg/dL (8.5-10.5); Carbon Dioxide 28 mmol/L (22-29); Chloride 99 mmol/L (98-107); Creatinine Clr Calc Pharmacy 103.0821; Glucose 148 mg/dL (65-115); Osmolality Calculated 285 mOsm/kg (285-295); Potassium 3.9 mmol/L (3.5-5.1); Sodium 136 mmol/L (136-145)
[2023-01-31] MEDS: FUROsemide 40 mg Tablet PO (05:19)
[2023-01-31 06:03] LABS: Glucose Point of Care 153 mg/dL (70-110)
[2023-01-31] MEDS: budesonide 0.5 mg/2 mL Neb INHALATION (08:19)
[2023-01-31] MEDS: albuterol 2.5 mg/3 mL Neb INHALATION ×2 (08:24→11:07)
[2023-01-31] MEDS: insulin lispro 100 unit/1 mL SUBCUT ×2 (08:26→12:23)
[2023-01-31] MEDS: nystatin powder 15 gm Btl 1 APPLIC TOPICAL ×2 (08:27→20:11)
[2023-01-31] MEDS: pantoprazole DR 40 mg Tablet PO (08:28)
[2023-01-31 11:12] LABS: Glucose Point of Care 160 mg/dL (70-110)
--- NOTE | 2023-01-31 11:20 | P.PN_ITS ---
Subjective Subjective: Endorsing feeling better Hahn catheter has been replaced by straight Bowel movement today Patient is feeling much relief Awaiting placement Awaiting prior authorization approval bus and sys integration senior manager updated No change in medications for today No need of labs for tomorrow Vitals/I&O/Wt Last Vital Signs Temp 98.0 F 01/31/23 08:00 Pulse 76 01/31/23 11:08 Resp 16 01/31/23 11:07 BP 118/71 01/31/23 08:00 Pulse Ox 94 01/31/23 11:07 O2 Del Method Room Air 01/31/23 11:07 01/30/23 01/31/23 01/31/23 22:59 06:59 14:59 Intake Total 600 / 1314 360 / 360 Output Total 200 / 1700 150 / 1850 425 / 425 Balance 400 / -386 -150 / -536 -65 / -65 Physical Exam Narrative: Awake and alert Laying supine Euvolemic abdomen soft Currently on room air Pleasant and cooperative GCS 15 Eating breakfast Hahn catheter draining dilute colored urine No active drainage Data 01/31/23 03:55 01/31/23 03:55 A&P Assessment and plan (1) Chronic indwelling Hahn catheter: (2) Thoracic spine pain: (3) History of total left hip replacement: (4) Chronic left hip pain: (5) Gout: (6) Diabetes: (7) Hypertension: Qualifiers: Hypertension type: essential hypertension Qualified Code(s): I10 - Essential (primary) hypertension (8) COPD (chronic obstructive pulmonary disease): (9) Lymphedema of both lower extremities: Plan Patient is awaiting placement Constipation: Relieved Cloudy urine, patient has been afebrile I have changed Hahn catheter on 01/30 Safety management for left hip pain Right shoulder osteoarthritis Conservative management No neurosurgical intervention Currently on room air Debilitated physically We will need halfway placement after prior authorization approval DNR/D ni Continue hypothyroid levothyroxine medications along gout medications Attestations Medical Necessity Statement*: Awaiting placement Diagnoses Chronic indwelling Hahn catheter Z97.8 Thoracic spine pain M54.6 History of total left hip replacement Z96.642 Chronic left hip pain M25.552; G89.29 Gout M10.9 Diabetes E11.9 Hypertension I10 Hypertension type: essential hypertension COPD (chronic obstructive pulmonary disease) J44.9 Lymphedema of both lower extremities I89.0
[2023-01-31 16:17] LABS: Glucose Point of Care 113 mg/dL (70-110)
[2023-01-31 19:55] LABS: Glucose Point of Care 201 mg/dL (70-110)
[2023-01-31] MEDS: losartan 50 mg Tablet 100 MG PO (20:11)
[2023-01-31] MEDS: allopurinol 300 mg Tablet 600 MG PO (20:11)
[2023-01-31] MEDS: potassium chloride ER 20 mEq Tablet PO (20:12)
[2023-01-31] MEDS: escitalopram 10 mg Tablet PO (20:12)
[2023-01-31] MEDS: metoprolol tartrate 25 mg Tablet PO (20:12)
[2023-01-31] MEDS: atorvastatin 40 mg Tablet 20 MG PO (20:12)
[2023-02-01] MEDS: oxybutynin 5 mg Tablet PO ×2 (01:39→21:30)
[2023-02-01] MEDS: heparin 5,000 unit/mL INJ 1 mL 5000 UNIT SUBCUT ×3 (01:39→17:51)
[2023-02-01 04:00] VITALS: BP 96/60; PULSE 81; RESP 18; TEMP 36.8; O2SAT 93
[2023-02-01] MEDS: FUROsemide 40 mg Tablet PO (06:17)
[2023-02-01 06:41] LABS: Glucose Point of Care 137 mg/dL (70-110)
[2023-02-01 07:53] VITALS: BP 131/70; PULSE 64; RESP 16; TEMP 36.9; O2SAT 97
--- NOTE | 2023-02-01 08:57 | PC.SOCIAL ---
IMM update IMM updated with patient. Verbalized an understanding. Copy Pg 2 provided. Initialled, dated, timed, and placed in chart.
[2023-02-01 08:58] VITALS: PULSE 64; RESP 16; O2SAT 97
[2023-02-01] MEDS: nystatin powder 15 gm Btl 1 APPLIC TOPICAL ×2 (09:34→17:51)
[2023-02-01] MEDS: pantoprazole DR 40 mg Tablet PO (09:34)
[2023-02-01 11:33] LABS: Glucose Point of Care 175 mg/dL (70-110)
[2023-02-01 11:58] VITALS: BP 94/58; PULSE 73; RESP 16; TEMP 36.9; O2SAT 93
[2023-02-01] MEDS: guaiFENesin 100 mg/5 mL UDC 10 mL 200 MG PO (12:02)
[2023-02-01] MEDS: insulin lispro 100 unit/1 mL SUBCUT ×2 (12:02→17:50)
--- NOTE | 2023-02-01 14:17 | PM.PN ---
Subjective Subjective: No overnight events Patient still endorsing constipation however had 2 small bowel movements today Give another dose of lactulose Still awaiting prior Auth There is no test for dementia this is a clinical diagnosis is asking about dementia test Vitals/I&O/Wt Last Vital Signs Temp 98.4 F 02/01/23 11:58 Pulse 73 02/01/23 11:58 Resp 16 02/01/23 11:58 BP 94/58 02/01/23 11:58 Pulse Ox 93 02/01/23 11:58 O2 Del Method Room Air 02/01/23 12:00 01/31/23 02/01/23 02/01/23 22:59 06:59 14:59 Intake Total 240 / 600 Output Total 800 / 1875 1400 / 3275 550 / 550 Balance -560 / -1275 -1400 / -2675 -550 / -550 Physical Exam Narrative: Laying supine Euvolemic Hahn catheter in place Awake and alert GCS 15 Eating breakfast No audible stridor or wheezing Abdomen soft Currently on room air Data 01/31/23 03:55 01/31/23 03:55 A&P Assessment and plan (1) Fall: (2) Diabetes: (3) Gout: (4) Chronic left hip pain: (5) History of total left hip replacement: (6) Thoracic spine pain: (7) Chronic indwelling Hahn catheter: (8) COPD (chronic obstructive pulmonary disease): (9) Lymphedema of both lower extremities: Plan Patient is awaiting prior authorization Today I am giving him constipation medication lactulose 10 g However he had 2 bowel movements small quantity today No signs of cauda equina Hahn catheter has been replaced Afebrile Conservative management for left hip pain Patient seems to be suffering from dementia which is a clinical diagnosis DNR/DNI Continue levothyroxine ALONSO hose for compression stockings Attestations Medical Necessity Statement*: Continue medical management Diagnoses Fall W19.XXXA Diabetes E11.9 Gout M10.9 Chronic left hip pain M25.552; G89.29 History of total left hip replacement Z96.642 Thoracic spine pain M54.6 Chronic indwelling Hahn catheter Z97.8 COPD (chronic obstructive pulmonary disease) J44.9 Lymphedema of both lower extremities I89.0
[2023-02-01 16:00] VITALS: BP 98/63; PULSE 82; RESP 18; TEMP 36.6; O2SAT 94
[2023-02-01 16:40] LABS: Glucose Point of Care 142 mg/dL (70-110)
[2023-02-01] MEDS: guaiFENesin 600 mg Tablet PO (17:50)
[2023-02-01 20:00] VITALS: BP 108/63; PULSE 75; PULSE 89; RESP 17; RESP 19; TEMP 36.9; O2SAT 93; O2SAT 95
[2023-02-01] MEDS: potassium chloride ER 20 mEq Tablet PO (21:27)
[2023-02-01] MEDS: allopurinol 300 mg Tablet 600 MG PO (21:27)
[2023-02-01] MEDS: atorvastatin 40 mg Tablet 20 MG PO (21:27)
[2023-02-01] MEDS: metoprolol tartrate 25 mg Tablet PO (21:28)
[2023-02-01] MEDS: escitalopram 10 mg Tablet PO (21:29)
[2023-02-01 22:18] LABS: Glucose Point of Care 132 mg/dL (70-110)
[2023-02-02] VITALS (8 sets, daily range): BP systolic 106–146; BP diastolic 62–71; PULSE 67–88; RESP 17–20; TEMP 36.4–36.9; O2SAT 93–97
[2023-02-02] MEDS: oxyCODONE 5 mg IR Tab/Cap PO ×2 (01:23→18:53)
[2023-02-02] MEDS: guaiFENesin 100 mg/5 mL UDC 10 mL 200 MG PO ×2 (02:54→20:28)
--- NOTE | 2023-02-02 05:55 | P.PN_ITS ---
Subjective Subjective: No significant events overnight Constipation improving Afebrile No signs of UTI Hahn catheter has been changed Vitals/I&O/Wt Last Vital Signs Temp 98.0 F 02/02/23 04:00 Pulse 74 02/02/23 04:00 Resp 19 H 02/02/23 04:00 BP 116/62 02/02/23 04:00 Pulse Ox 95 02/02/23 04:00 O2 Del Method Room Air 02/02/23 04:00 02/01/23 02/01/23 02/02/23 14:59 22:59 06:59 Intake Total 480 / 480 240 / 720 Output Total 550 / 550 900 / 1450 1200 / 2650 Balance -550 / -550 -420 / -970 -960 / -1930 Physical Exam Narrative: Laying supine Currently on room air Pleasant cooperative Lower extremity has ALONSO hose stockings Hahn catheter in place draining dilute urine yellow-colored Soft abdomen Radial S1-S2 GCS 15 Nonfocal neuro exam Data 01/31/23 03:55 01/31/23 03:55 A&P Assessment and plan (1) Chronic indwelling Hahn catheter: (2) Thoracic spine pain: (3) History of total left hip replacement: (4) Chronic left hip pain: (5) Gout: (6) Diabetes: (7) Fall: (8) Lymphedema of both lower extremities: (9) Callus of foot: Plan Patient is awaiting placement advertising sales manager note reviewed Constipation: Improving Chronic indwelling catheter Hahn catheter changed couple of days ago No signs of fever or UTI at this point Chronic lymphedema patient is using ALONSO hose stockings DNR/DNI Attestations Medical Necessity Statement*: Awaiting placement Diagnoses Chronic indwelling Hahn catheter Z97.8 Thoracic spine pain M54.6 History of total left hip replacement Z96.642 Chronic left hip pain M25.552; G89.29 Gout M10.9 Diabetes E11.9 Fall W19.XXXA Lymphedema of both lower extremities I89.0 Callus of foot L84
[2023-02-02 08:07] LABS: Glucose Point of Care 126 mg/dL (70-110)
[2023-02-02] MEDS: nystatin powder 15 gm Btl 1 APPLIC TOPICAL ×2 (08:49→17:33)
[2023-02-02] MEDS: guaiFENesin 600 mg Tablet PO ×2 (08:50→17:33)
[2023-02-02] MEDS: pantoprazole DR 40 mg Tablet PO (08:50)
[2023-02-02] MEDS: heparin 5,000 unit/mL INJ 1 mL 5000 UNIT SUBCUT ×2 (08:50→17:33)
[2023-02-02 11:22] LABS: Glucose Point of Care 230 mg/dL (70-110)
[2023-02-02] MEDS: insulin lispro 100 unit/1 mL SUBCUT (13:03)
[2023-02-02 16:54] LABS: Glucose Point of Care 108 mg/dL (70-110)
[2023-02-02] MEDS: metoprolol tartrate 25 mg Tablet PO (20:28)
[2023-02-02] MEDS: escitalopram 10 mg Tablet PO (20:28)
[2023-02-02] MEDS: allopurinol 300 mg Tablet 600 MG PO (20:28)
[2023-02-02] MEDS: potassium chloride ER 20 mEq Tablet PO (20:28)
[2023-02-02] MEDS: atorvastatin 40 mg Tablet 20 MG PO (20:28)
[2023-02-02] MEDS: oxybutynin 5 mg Tablet PO (20:31)
[2023-02-02 22:11] LABS: Glucose Point of Care 159 mg/dL (70-110)
[2023-02-03] VITALS (8 sets, daily range): BP systolic 104–157; BP diastolic 66–75; PULSE 70–92; RESP 16–20; TEMP 36.3–37.1; O2SAT 95–98
[2023-02-03] MEDS: heparin 5,000 unit/mL INJ 1 mL 5000 UNIT SUBCUT ×3 (01:25→18:08)
--- NOTE | 2023-02-03 05:37 | PM.PN ---
Subjective Subjective: Constipation relieved No new complaints Patient was complaining of bladder spasm for which his medication was adjusted yesterday Vitals/I&O/Wt Last Vital Signs Temp 97.4 F L 02/03/23 04:00 Pulse 82 02/03/23 04:00 Resp 17 02/03/23 04:00 BP 113/74 02/03/23 04:00 Pulse Ox 96 02/03/23 04:00 O2 Del Method Room Air 02/03/23 04:00 02/02/23 02/02/23 02/03/23 14:59 22:59 06:59 Intake Total 840 / 840 360 / 1200 Output Total 1675 / 1675 650 / 2325 Balance 840 / 840 -1315 / -475 -650 / -1125 Physical Exam Narrative: Laying supine Does not seem to be in distress GCS 15 Currently on room air Hahn catheter in place Abdomen distended but soft Lower extremity no signs of edema, S1, S2 No new focal deficit Data 01/31/23 03:55 01/31/23 03:55 A&P Assessment and plan (1) Chronic indwelling Hahn catheter: (2) Thoracic spine pain: (3) History of total left hip replacement: (4) Gout: (5) Diabetes: (6) Fall: (7) Restrictive airway disease: (8) Callus of foot: (9) Onychodystrophy: (10) Lymphedema of both lower extremities: Plan Awaiting placement Constipation relieved Bladder spasm improved DNR/DNI Continue consistent carb diet Normoglycemic Hemodynamically stable Afebrile Conservative management for his back pain, Attestations Medical Necessity Statement*: Discharge tomorrow Diagnoses Chronic indwelling Hahn catheter Z97.8 Thoracic spine pain M54.6 History of total left hip replacement Z96.642 Gout M10.9 Diabetes E11.9 Fall W19.XXXA Restrictive airway disease J98.4 Callus of foot L84 Onychodystrophy L60.3 Lymphedema of both lower extremities I89.0
[2023-02-03 06:42] LABS: Glucose Point of Care 121 mg/dL (70-110)
[2023-02-03] MEDS: budesonide 0.5 mg/2 mL Neb INHALATION (09:18)
--- NOTE | 2023-02-03 10:27 | PC.SOCIAL ---
Imm update Imm updated with patient at bedside. Copy of page 2 provided. Patient verbalized understanding. Copy in chart initialed, dated and timed.
[2023-02-03] MEDS: oxyCODONE 5 mg IR Tab/Cap PO (10:29)
[2023-02-03] MEDS: pantoprazole DR 40 mg Tablet PO (10:29)
[2023-02-03] MEDS: guaiFENesin 600 mg Tablet PO ×2 (10:29→18:08)
[2023-02-03] MEDS: nystatin powder 15 gm Btl 1 APPLIC TOPICAL ×2 (10:31→18:08)
[2023-02-03 11:55] LABS: Glucose Point of Care 216 mg/dL (70-110)
[2023-02-03] MEDS: insulin lispro 100 unit/1 mL SUBCUT (12:33)
[2023-02-03 17:16] LABS: Glucose Point of Care 138 mg/dL (70-110)
[2023-02-03] MEDS: allopurinol 300 mg Tablet 600 MG PO (20:33)
[2023-02-03] MEDS: atorvastatin 40 mg Tablet 20 MG PO (20:33)
[2023-02-03] MEDS: metoprolol tartrate 25 mg Tablet PO (20:34)
[2023-02-03] MEDS: escitalopram 10 mg Tablet PO (20:34)
[2023-02-03] MEDS: potassium chloride ER 20 mEq Tablet PO (20:34)
[2023-02-03] MEDS: oxybutynin 5 mg Tablet PO (20:36)
[2023-02-03] MEDS: guaiFENesin 100 mg/5 mL UDC 10 mL 200 MG PO (20:38)
[2023-02-03 21:08] LABS: Glucose Point of Care 180 mg/dL (70-110)
[2023-02-04] VITALS: BP 99/61; PULSE 72; RESP 19; TEMP 36.8; O2SAT 92
[2023-02-04] MEDS: heparin 5,000 unit/mL INJ 1 mL 5000 UNIT SUBCUT ×2 (02:02→08:31)
[2023-02-04] MEDS: acetaminophen 325 mg Tablet 650 MG PO ×2 (02:05→06:33)
[2023-02-04 04:00] VITALS: BP 124/79; PULSE 80; RESP 20; TEMP 36.6; O2SAT 95
[2023-02-04] MEDS: FUROsemide 40 mg Tablet PO (06:23)
[2023-02-04 06:38] LABS: Glucose Point of Care 114 mg/dL (70-110)
--- NOTE | 2023-02-04 06:52 | P.DS_ITS ---
Discharge Providers Date of Admission: 01/27/23 15:32 Date of Discharge: February 04, 2023 Attending Provider at Admission: Yasmany Mccann MD Attending Provider at Discharge: Rashel Kendall MD Primary Care Provider: Trever Rucker DO Diagnoses at Discharge Discharge Diagnosis (1) Chronic indwelling Hahn catheter: Status: Acute (2) Thoracic spine pain: Status: Acute (3) History of total left hip replacement: Status: Acute (4) Gout: Status: Acute (5) Diabetes: Status: Acute (6) Fall: Status: Acute (7) Restrictive airway disease: Status: Acute (8) Callus of foot: Status: Acute (9) Onychodystrophy: Status: Acute (10) Lymphedema of both lower extremities: Status: Acute Reason for Visit Reason for Visit: BACK PAIN S/P FALL Hospital Course Hospital Course 83-year-old male who presented from home with chief complaint recurrent falls, generalized weakness and fatigue, patient has a chronic indwelling catheter for which he follows up with the urologist in [place], patient was complaining of left hip pain, he was evaluated by orthopedics, kindly review their notes for further details, conservative management was recommended for his chronic joint pains, in case of further worsening of pain orthopedics recommended tertiary care surgical intervention because his procedure was done in remote past which should be carefully talked about before any intervention at a tertiary center. Patient received multiple medications for insomnia, productive cough, his Hahn catheter was changed during hospitalization when we started noticing discharge from the urethral meatus which improved after new Hahn catheter placement, he remained afebrile, cultures remain negative, for his constipation he received multiple laxatives. He is DNI/DNI. Seems to be suffering with dementia. Uses ALONOS hose stockings for his lymphedema. MRI spine did not show any signs of cauda equina. His right shoulder range of motion is limited because of osteoarthritis Physical Exam Narrative: Patient in supine Chronic lymphedema with ALONSO hose stockings GCS 15 Nonfocal neuro exam S1, S2 Currently on room air Abdomen soft Discharge Data Studies Completed and Pending Completed Studies During Hospitalization Category Date Time Status CT abdomen pelvis wo con [id number] Stat Cat Scan 01/27/23 13:[address] abdomen pelvis wo con [id number] Stat Cat Scan 01/28/23 06:[address] cervical spin wo con* [id number] Stat Cat Scan 01/27/23 13:[address] head wo con* [id number] Stat Cat Scan 01/27/23 13:[address] thoracic spin wo con* [id number] Stat Cat Scan 01/27/23 13:06 Completed XR hip LT 2-3V wo/w pel* [id number] Stat Exams 01/27/23 15:48 Completed XR hip RT 2-3V wo/w pel* [id number] Stat Exams 01/27/23 15:20 Completed XR shoulder RT min 2V* [id number] Stat Exams 01/27/23 15:02 Completed MR lumbar spine wo con* [id number] Routine MRI 01/29/23 08:25 Completed MR thoracic spin wo con* [id number] Routine MRI 01/29/23 08:25 Completed Radiology Impressions Cervical Spine CT 01/27/23 13:06 IMPRESSION: No acute fracture. Multilevel degenerative changes as described. Head CT 01/27/23 13:06 IMPRESSION: No CT evidence of acute intracranial hemorrhage, mass or acute infarction. Thoracic Spine CT 01/27/23 13:06 IMPRESSION: 1. Minimal wedging of the T9 superior and inferior endplates less than 10% each. 2. Subtle fracture in vertical configuration of the right L1 transverse process. 3. Questionable trace pleural effusion on the right 4. Interstitial lung disease? Shoulder X-Ray 01/27/23 15:02 IMPRESSION: No acute findings. Hip/Pelvis X-Ray 01/27/23 15:48 IMPRESSION: Left hip replacement. No evidence of an acute fracture. ADDENDUM: 01/27/23 1637 There is a pseudo acetabulum. Abdomen/Pelvis CT 01/28/23 06:07 IMPRESSION: 1. Negative for acute abdominopelvic pathology. 2. No changes from comparison. Lumbar Spine MRI 01/29/23 08:25 IMPRESSION: 1. Mild lumbar curve. No acute compression. No high-grade central canal stenosis. 2. RIGHT L1 transverse process fracture better visualized on the recent CT. 3. Mild annular bulging L4-L5 impinges the traversing RIGHT L5 nerve root in the subarticular recess. Mild RIGHT L4-L5 foraminal narrowing. 4. Tiny LEFT foraminal protrusion L1-L2 with mild LEFT L1-L2 foraminal narrowing. 5. Mild RIGHT L2-L3 and RIGHT greater than LEFT L3-L4 foraminal narrowing. 6. Mild narrowing of the LEFT L2-L3 and LEFT L3-L4 subarticular recess. 7. Moderate facet arthropathy L3-L5. Thoracic Spine MRI 01/29/23 08:25 IMPRESSION: Images significantly degraded by motion artifact. 1. Mild thoracic kyphosis. No acute appearing compression fractures. No vertebral body edema. 2. No high-grade central canal narrowing. Cord signal appears normal considering motion artifact. 3. A few tiny central protrusions in the upper and mid thoracic spine without significant central canal stenosis. 4. Moderate facet arthropathy lower thoracic spine. Laboratory Results WBC 9.8 10^3/uL (4.0-10.0) 01/31/23 03:55 RBC 4.02 10^6/uL (4.1-5.3) L 01/31/23 03:55 Hgb 11.9 g/dL (11.7-16.6) 01/31/23 03:55 Hct 37.2 % (42.0-52.0) L 01/31/23 03:55 MCV 92.5 fl (80-94) 01/31/23 03:55 MCH 29.6 pg (28.0-34.0) 01/31/23 03:55 MCHC 32.0 g/dL (30.0-36.0) 01/31/23 03:55 RDW 14.6 % (12.1-15.1) 01/31/23 03:55 Plt Count 314 10^3/cmm (130-400) 01/31/23 03:55 MPV 9.4 fL (7.4-10.4) 01/31/23 03:55 Neut % (Auto) 62.7 % 01/31/23 03:55 Lymph % (Auto) 21.6 % 01/31/23 03:55 Sampson % (Auto) 10.3 % 01/31/23 03:55 Eos % (Auto) 4.2 % 01/31/23 03:55 Baso % (Auto) 0.5 % 01/31/23 03:55 Neut # (Auto) 6.11 10^3/uL (1.8-7.7) 01/31/23 03:55 Lymph # (Auto) 2.1 10^3/uL (0.8-4.8) 01/31/23 03:55 Sampson # (Auto) 1.0 10^3/uL (0.2-0.9) H 01/31/23 03:55 Eos # (Auto) 0.4 10^3/uL (0.0-0.8) 01/31/23 03:55 Baso # (Auto) 0.1 10^3/uL (0.0-0.1) 01/31/23 03:55 Nucleated RBC % (auto) 0 % 01/31/23 03:55 Nucleated RBCs # 0.0 /100WBC 01/31/23 03:55 Sodium 136 mmol/L (136-145) 01/31/23 03:55 Potassium 3.9 mmol/L (3.5-5.1) 01/31/23 03:55 Chloride 99 mmol/L (98-107) 01/31/23 03:55 Carbon Dioxide 28 mmol/L (22-29) 01/31/23 03:55 Anion Gap 12.9 (5-19) 01/31/23 03:55 BUN 12 mg/dL (8-23) 01/31/23 03:55 Creatinine 0.8 mg/dL (0.7-1.2) 01/31/23 03:55 GFR Calculation Not Reportable 01/31/23 03:55 Glucose 148 mg/dL (65-115) H 01/31/23 03:55 POC Glucose 114 mg/dL (70-110) H 02/04/23 06:28 Calculated Osmolality 285 mOsm/kg (285-295) 01/31/23 03:55 Calcium 8.7 mg/dL (8.5-10.5) 01/31/23 03:55 Total Bilirubin 0.3 mg/dL (0.15-1.2) 01/27/23 15:30 AST 18 U/L (0-40) 01/27/23 15:30 ALT 16 U/L (0-41) 01/27/23 15:30 Alkaline Phosphatase 130 U/L (40-130) 01/27/23 15:30 Total Protein 7.4 g/dL (6.6-8.7) 01/27/23 15:30 Albumin 3.3 g/dL (3.5-5.2) L 01/27/23 15:30 Globulin 4.1 g/dL (1.3-4.6) 01/27/23 15:30 Urine Color Yellow (Yellow) 01/30/23 10:00 Urine Appearance Sl cloudy (CLEAR) A 01/30/23 10:00 Urine pH 6.5 (5-7) 01/30/23 10:00 Ur Specific [place] 1.015 (1.005-1.030) 01/30/23 10:00 Urine Protein Neg (Negative) 01/30/23 10:00 Urine Glucose (UA) Norm (Normal) 01/30/23 10:00 Urine Ketones Negative (Negative) 01/30/23 10:00 Urine Blood Neg (Negative) 01/30/23 10:00 Urine Nitrate Positive (Negative) H 01/30/23 10:00 Urine Bilirubin Neg (Negative) 01/30/23 10:00 Urine Urobilinogen Norm mg/dL (Negative) 01/30/23 10:00 Ur Leukocyte Esterase Trace (Negative) H 01/30/23 10:00 Urine RBC 0-4 /hpf (0-2) H 01/30/23 10:00 Urine WBC 5-10 /hpf (0-5) H 01/30/23 10:00 Ur Squamous Epith Cells Rare /hpf (0-5) 01/30/23 10:00 Amorphous Sediment Not Reportable 01/30/23 10:00 Urine Bacteria 1+ /hpf (NONE) H 01/30/23 10:00 Urine Mucus Trace /hpf 01/30/23 10:00 Vitals Last Vital Signs Temp 97.9 F 02/04/23 04:00 Pulse 80 02/04/23 04:00 Resp 20 H 02/04/23 04:00 BP 124/79 02/04/23 04:00 Pulse Ox 95 02/04/23 04:00 O2 Del Method Room Air 02/04/23 04:00 Discharge Plan Discharge Patient Disposition: Xfer SNF Condition: Stable Prescriptions: New hydrocodone-acetaminophen 5-325 mg tablet 1 tab PO Q6H PRN (Reason: pain) Qty: 14 0RF No Action potassium chloride [Klor-Con M20] 20 mEq tablet,ER particles/crystals 20 meq PO BEDTIME guaifenesin [Mucinex] 600 mg tablet extended release 12hr 600 mg PO BID losartan 100 mg tablet 100 mg PO BEDTIME furosemide [Lasix] 40 mg tablet 40 mg PO QAM allopurinol 300 mg tablet 600 mg PO BEDTIME (DME) limpadeama decongestion to the lower extremities See Rx Instructions .Route .MEDSUPPLY Qty: 1 0RF Rx Instructions: As directed by physical therapy (DME) Diabetic Shoes with 3 pairs of inserts See Rx Instructions .Route .MEDSUPPLY Qty: 1 0RF Rx Instructions: As directed by [facility] fluticasone propion-salmeterol [Advair Diskus] 500-50 mcg/dose blister with device 1 inh inhalation BID Qty: 180 3RF (DME) Diabetic shoes with 3 inserts See Rx Instructions .Route .MEDSUPPLY Qty: 1 0RF Rx Instructions: As directed HOME magnesium hydroxide [Milk of Magnesia] 400 mg/5 mL suspension 20 ml PO BID PRN (Reason: constipation) Qty: 355 0RF oxybutynin chloride 5 mg Tablet 5 mg PO TID PRN (Reason: Bladder Spasms) Lipitor 20 mg Tablet 20 mg PO BEDTIME Sleep Aid Liquid Gels Max St 50 mg Capsule 50 mg PO BEDTIME Prilosec 40 mg Capsule,Delayed Release(Dr/Ec) 40 mg PO DAILY Tylenol Ex Str Rapid Release 500 mg Tablet 1,000 mg PO Q6H PRN (Reason: Pain) Lexapro 10 mg Tablet 10 mg PO BEDTIME Jardiance 10 mg Tablet 10 mg PO QAM metoprolol tartrate 25 mg tablet 25 mg PO BEDTIME Referrals: [facility] [place] [Outside] Trever Rucker DO [Primary Care Provider] - Alexis Blake DO [Physician] - 02/07/23 3:45 pm (Please arrive 15 minutes early ) Discharge Diet: Advance as tolerated Discharge Activity: Resume usual activity Patient Instructions: Thoracolumbar Fracture (ED), Opioid Safety Discharge Attestations Time Spent in Discharge Care*: greater than 30 min Quality Metrics Clinical Quality Measures [ No reported AMI, CVA or VTE this stay] Coding Level of Care Code Acute Code for Chg Fwd Diagnoses Chronic indwelling Hahn catheter Z97.8 Thoracic spine pain M54.6 History of total left hip replacement Z96.642 Gout M10.9 Diabetes E11.9 Fall W19.XXXA Restrictive airway disease J98.4 Callus of foot L84 Onychodystrophy L60.3 Lymphedema of both lower extremities I89.0
[2023-02-04 07:02] VITALS: BP 136/78; PULSE 84; RESP 18; TEMP 36.6; O2SAT 92
[2023-02-04 08:24] VITALS: PULSE 80; RESP 16; O2SAT 95
[2023-02-04] MEDS: pantoprazole DR 40 mg Tablet PO (08:31)
[2023-02-04] MEDS: nystatin powder 15 gm Btl 1 APPLIC TOPICAL (08:31)
[2023-02-04] MEDS: guaiFENesin 600 mg Tablet PO (08:31)
[2023-02-04 10:14] LABS: SARS Covid-2 Antigen negative
[2023-02-04 11:07] LABS: Glucose Point of Care 220 mg/dL (70-110)
[2023-02-04 11:19] VITALS: BP 134/71; PULSE 78; RESP 18; TEMP 36.7; O2SAT 95
[2023-02-04] MEDS: insulin lispro 100 unit/1 mL SUBCUT (12:34)
--- NOTE | 2023-02-04 12:58 | PC.NURSE ---
This nurse gave report to ANTONIO Rock at [facility], [place] via phone at 12:58. Patient awaiting to be discharged until 1400 as that is when transport is expected to arrive here.
== END 2023-02-04 13:27 | disposition skilled nursing facility (03) | DRG 552 ==
LOC: ER 14:56 → MEDSURG 16:08
PROVIDERS: Admitting Provider Internal Medicine; Emergency Provider Emergency Medicine; PCP Family Medicine; Visit Provider Internal Medicine
DX: S22.070A Wedge compression fracture of T9-T10 vertebra, initial encounter for closed fracture (principal); T84.84XA Pain due to internal orthopedic prosthetic devices, implants and grafts, initial encounter; W01.0XXA Fall on same level from slipping, tripping and stumbling without subsequent striking against object, initial encounter; M25.551 Pain in right hip; G47.00 Insomnia, unspecified; K59.00 Constipation, unspecified; Z66 Do not resuscitate; F03.90 Unspecified dementia, unspecified severity, without behavioral disturbance, psychotic disturbance, mood disturbance, and anxiety; M19.011 Primary osteoarthritis, right shoulder; E11.42 Type 2 diabetes mellitus with diabetic polyneuropathy; E11.51 Type 2 diabetes mellitus with diabetic peripheral angiopathy without gangrene; Z79.84 Long term (current) use of oral hypoglycemic drugs; M10.9 Gout, unspecified; L84 Corns and callosities; L60.3 Nail dystrophy; J44.9 Chronic obstructive pulmonary disease, unspecified; I89.0 Lymphedema, not elsewhere classified; Z75.1 Person awaiting admission to adequate facility elsewhere; Y79.8 Miscellaneous orthopedic devices associated with adverse incidents, not elsewhere classified; Z96.642 Presence of left artificial hip joint; G89.29 Other chronic pain; I10 Essential (primary) hypertension; K21.9 Gastro-esophageal reflux disease without esophagitis; E78.5 Hyperlipidemia, unspecified; M51.37 Other intervertebral disc degeneration, lumbosacral region; I25.10 Atherosclerotic heart disease of native coronary artery without angina pectoris; M54.50 Low back pain, unspecified; Z96.0 Presence of urogenital implants
CPT/HCPCS: 36415; 36416; 70450; 72125; 72128; 72146; 72148; 73030; 73502; 74176; 80048; 80053; 81001; 82962; 85025; 87426; 94640; 96372; 97110; 97116; 97162; 97165; 97530; 99285; J1644; J1815; J1885; J2405; J7613; J7626

== ENCOUNTER → 2023-02-07 15:57 | Outpatient (BNVA) | payer MEDICARE, SELFPAY | PROVIDERS: PCP Family Medicine; Referring Provider Orthopaedic Surgery; Visit Provider Physician Assistant | DX: S32.009A Unspecified fracture of unspecified lumbar vertebra, initial encounter for closed fracture (principal); M54.9 Dorsalgia, unspecified; W19.XXXA Unspecified fall, initial encounter | CPT/HCPCS: 72070; 72100; 99203 ==

== ENCOUNTER → 2023-03-18 10:22 | Outpatient (BNVA) | payer MEDICARE, SELFPAY | PROVIDERS: PCP Internal Medicine; Visit Provider Internal Medicine Pulmonary Disease | DX: J44.0 Chronic obstructive pulmonary disease with (acute) lower respiratory infection (principal); J98.4 Other disorders of lung; J22 Unspecified acute lower respiratory infection; Z87.891 Personal history of nicotine dependence | CPT/HCPCS: 99214 ==

== ENCOUNTER → 2023-03-25 15:17 | Outpatient (BNVA) | payer MEDICARE, SELFPAY | PROVIDERS: PCP Internal Medicine; Visit Provider Internal Medicine Cardiovascular Disease | DX: I49.8 Other specified cardiac arrhythmias (principal); R06.02 Shortness of breath; J44.9 Chronic obstructive pulmonary disease, unspecified; I70.90 Unspecified atherosclerosis; E11.9 Type 2 diabetes mellitus without complications; Z79.84 Long term (current) use of oral hypoglycemic drugs; Z87.891 Personal history of nicotine dependence | CPT/HCPCS: 99214 ==

== ENCOUNTER → 2023-04-26 12:58 | Outpatient (BNVA) | payer MEDICARE, SELFPAY | PROVIDERS: PCP Internal Medicine; Visit Provider Thoracic Surgery (Cardiothoracic Vascular Surgery) | DX: E11.621 Type 2 diabetes mellitus with foot ulcer (principal); L97.522 Non-pressure chronic ulcer of other part of left foot with fat layer exposed | CPT/HCPCS: 99213 ==

== ENCOUNTER → 2023-06-25 10:35 | Outpatient (BNVA) | payer MEDICARE, SELFPAY | PROVIDERS: PCP Internal Medicine; Visit Provider Nurse Practitioner Family | DX: L82.1 Other seborrheic keratosis (principal); L57.0 Actinic keratosis; L72.0 Epidermal cyst; D22.5 Melanocytic nevi of trunk | CPT/HCPCS: 17000; 17110; 99213 ==

== ENCOUNTER 2023-08-06 17:43 | Emergency (ER) | payer MEDICARE, SELFPAY ==
[2023-08-06 17:53] VITALS: BP 119/64; PULSE 73; RESP 16; TEMP 36.9; O2SAT 93; BMI 34.9
--- NOTE | 2023-08-06 18:15 | ED_ITS ---
HPI - Male Genitourinary General: Chief complaint: Urogenital-Male Stated complaint: cathider leaking Time Seen by Provider: 08/06/23 18:15 History of Present Illness: 83-year-old male presents emergency department stating that he recently had a suprapubic catheter placed secondary to urinary incontinence after receiving Botox injection causing him to have significant bladder dysfunction at that time. He states he has had a indwelling Hahn catheter for the previous 1 year and approximately 1 week ago he had a suprapubic catheter placed. He states that the Hahn catheter bag got a hole placed and it and that his urologist office was going to call a prescription in for urology Hahn replacement bags although when he checked the home medical supply store they advised him that they had not received a prescription for the Hahn catheter bags. 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 Some nonspecific T wave changes. normal QRS duration. Dyslipidemia (high LDL; low HDL) Elevated troponin Ex-smoker Fall Fracture of thoracic spine GERD (gastroesophageal reflux disease) Gout Hypertension Leg swelling LRTI (lower respiratory tract infection) Lymphedema of both lower extremities Onychodystrophy Peripheral neuropathy PVD (peripheral vascular disease) Restrictive airway disease Thoracic spine pain Type 2 diabetes mellitus Surgical History History of ankle surgery History of surgery on arm History of total left hip replacement Hx of cataract extraction Family History Brother Cancer Lung disease Father Cancer Chronic kidney disease (CKD) Grandfather Cancer Lung disease Mother Dementia Diabetes Family/Other Diabetes Chronic kidney disease (CKD) Other CAD (coronary artery disease) Denies family history of Clotting disorder Suicide Anesthesia complication Bleeding disorder Stroke Social History Smoking and tobacco/nicotine status: former use of tobacco/nicotine Quit status (tobacco/nicotine): has quit using Year quit tobacco: 1999 Former quit date comment: 2 ppd x 45 years Alcohol intake: never Substance/Drug Use: never Physical Exam Narrative: EXAM NARRATIVE: Constitutional: The patient appeared well nourished and normally developed. Vital signs as documented. Head: Exam is unremarkable. No scleral icterus or corneal arcus noted. Neck: Is without jugular venous distension, thyromegaly, or carotid bruits. Carotid upstrokes are brisk bilaterally. Lungs: Are clear to auscultation and percussion. Cardiac: exam reveals the PMI to be normally sized and situated. Rhythm is regular. First and second heart sounds normal. No murmurs, rubs or gallops. Abdominal: Exam reveals normal bowel sounds, no masses, no organomegaly and no aortic enlargement. Suprapubic catheter noted with clear yellow urine without sediment Extremities are non-edematous and both femoral and pedal pulses are normal. Course Vital Signs: Vital signs: Vital Signs Temperature 98.4 F 08/06/23 17:53 Pulse Rate 73 08/06/23 17:53 Respiratory Rate 16 08/06/23 17:53 Blood Pressure 119/64 08/06/23 17:53 Pulse Oximetry 93 08/06/23 17:53 Oxygen Delivery Me thod Room Air 08/06/23 17:53 MDM - Male Medical Decision Making Physical exam completed and documented, I discussed the patient's history and recent urological intervention. Medical Records I reviewed the patient's medical records. No radiology studies performed this visit Discharge Plan Discharge Patient Disposition: Home Clinical Impression: Encounter for suprapubic catheter care Condition: Stable Prescriptions: No Action potassium chloride [Klor-Con M20] 20 mEq tablet,ER particles/crystals 20 meq PO BEDTIME guaifenesin [Mucinex] 600 mg tablet extended release 12hr 600 mg PO BID losartan 100 mg tablet 100 mg PO BEDTIME furosemide [Lasix] 40 mg tablet 40 mg PO QAM allopurinol 300 mg tablet 600 mg PO BEDTIME (DME) limpadeama decongestion to the lower extremities See Rx Instructions .Route .MEDSUPPLY Qty: 1 0RF Rx Instructions: As directed by physical therapy (DME) Diabetic Shoes with 3 pairs of inserts See Rx Instructions .Route .MEDSUPPLY Qty: 1 0RF Rx Instructions: As directed by [facility] Respimat 1.25 mcg/actuation mist 2 puff inhalation DAILY Qty: 4 6RF fluticasone propion-salmeterol [Advair Diskus] 500-50 mcg/dose blister with device 1 inh inhalation BID Qty: 180 3RF (DME) Diabetic shoes with 3 inserts See Rx Instructions .Route .MEDSUPPLY Qty: 1 0RF Rx Instructions: As directed HOME (DME) CPT percussion TID See Rx Instructions .Route .MEDSUPPLY Qty: 1 0RF Rx Instructions: Do percussion for 5 to 7 minutes in each area of the chest. Do this on all of the areas of your chest or back magnesium hydroxide [Milk of Magnesia] 400 mg/5 mL suspension 20 ml PO BID PRN (Reason: constipation) Qty: 355 0RF hydrocodone-acetaminophen 5-325 mg tablet 1 tab PO Q6H PRN (Reason: pain) Qty: 14 0RF oxybutynin chloride 5 mg Tablet 5 mg PO TID PRN (Reason: Bladder Spasms) Lipitor 20 mg Tablet 20 mg PO BEDTIME Sleep Aid Liquid Gels Max St 50 mg Capsule 50 mg PO BEDTIME Prilosec 40 mg Capsule,Delayed Release(Dr/Ec) 40 mg PO DAILY Tylenol Ex Str Rapid Release 500 mg Tablet 1,000 mg PO Q6H PRN (Reason: Pain) Lexapro 10 mg Tablet 10 mg PO BEDTIME Jardiance 10 mg Tablet 10 mg PO QAM metoprolol tartrate 25 mg tablet 25 mg PO BEDTIME Discharge Orders: Discharge ED (Routine); Ordered 08/06/23 Ordered By: Nicholas Cole Referrals: Martin Robin MD [Primary Care Provider] - Discharge Diet: Advance as tolerated Discharge Activity: Resume usual activity Patient Instructions: Opioid Safety, Pain Management Activity Restrictions/Additional Instructions: Activity Restrictions/Additional Instructions: Thank you for choosing [facility] for your healthcare needs today. Please realize that you were seen in the Emergency Department and that we are providing you with an emergency medical screening exam and this may not be complete and all inclusive of all the testing and or medical work-up that you may need to determine your ailment or severity of your illness. It is very important that you follow-up as instructed with your Primary care provider or Specialist for additional evaluation and to discuss your medical treatment plan. You may return to the Emergency Department should you have concerns or if your condition changes or worsens in any way. Coding Level of Care Code ED Cloth [facility] for Gregor Mcallister
== END 2023-08-06 18:42 | disposition home or self-care (01) ==
PROVIDERS: Emergency Provider Internal Medicine; PCP Internal Medicine
DX: Z46.6 Encounter for fitting and adjustment of urinary device (principal); Z87.891 Personal history of nicotine dependence; J44.9 Chronic obstructive pulmonary disease, unspecified; E11.42 Type 2 diabetes mellitus with diabetic polyneuropathy; E78.5 Hyperlipidemia, unspecified; I10 Essential (primary) hypertension
CPT/HCPCS: 99283

== ENCOUNTER → 2023-08-16 10:55 | Outpatient (BNVA) | payer MEDICARE, SELFPAY | PROVIDERS: PCP Internal Medicine; Visit Provider Internal Medicine Pulmonary Disease | DX: J44.9 Chronic obstructive pulmonary disease, unspecified (principal); Z87.891 Personal history of nicotine dependence | CPT/HCPCS: 99214 ==

== ENCOUNTER → 2024-02-17 13:14 | Outpatient (BNVA) | payer MEDICARE, SELFPAY | PROVIDERS: PCP Internal Medicine; Visit Provider Internal Medicine Pulmonary Disease | DX: J44.9 Chronic obstructive pulmonary disease, unspecified (principal); R06.02 Shortness of breath; Z87.891 Personal history of nicotine dependence | CPT/HCPCS: 99214 ==

== ENCOUNTER → 2024-05-06 13:44 | Outpatient (BNVA) | payer MEDICARE, SELFPAY | PROVIDERS: PCP Internal Medicine; Visit Provider Nurse Practitioner Family | DX: L57.0 Actinic keratosis (principal); L82.0 Inflamed seborrheic keratosis; L85.3 Xerosis cutis; S80.911A Unspecified superficial injury of right knee, initial encounter; S00.80XA Unspecified superficial injury of other part of head, initial encounter; X58.XXXA Exposure to other specified factors, initial encounter | CPT/HCPCS: 17000; 17110; 99213 ==

== ENCOUNTER → 2024-06-22 13:06 | Outpatient (BNVA) | payer MEDICARE, OTHER, SELFPAY | PROVIDERS: PCP Internal Medicine; Visit Provider Thoracic Surgery (Cardiothoracic Vascular Surgery) | DX: Z51.89 Encounter for other specified aftercare (principal) | CPT/HCPCS: 99213 ==

== ENCOUNTER 2025-01-08 00:44 | Emergency (ER) | payer MEDICARE, SELFPAY ==
[2025-01-08 00:52] VITALS: BP 159/79; PULSE 79; RESP 20; TEMP 36.7; O2SAT 96; BMI 26.4
--- NOTE | 2025-01-08 01:20 | USR_ITS ---
PROCEDURE INFORMATION: Exam: US Duplex Left Lower Extremity Veins, Limited Exam date and time: 01/08/2025 2:03 AM Age: 85 years old Clinical indication: Edema, localized; Lower extremity, left; Additional info: Left leg swelling and pain TECHNIQUE: Imaging protocol: Real-time duplex ultrasound of the left extremity with 2-D caruso scale, color Doppler flow and spectral waveform analysis including responses to compression and other maneuvers (when performed) with image documentation. Limited exam focused on the left lower extremity veins. COMPARISON: CT abdomen pelvis wo con [id number] 01/28/2023 6:24 AM FINDINGS: Left deep veins: Unremarkable. The common femoral, femoral, proximal profunda femoral and popliteal veins are patent without thrombus. Normal Doppler waveforms. Normal compressibility and/or augmentation response. Superficial veins: Greater saphenous vein at the saphenofemoral junction is patent without thrombus. Soft tissues: Subcutaneous edema in the popliteal fossa. US/CV venous duplex [facility] [id number] IMPRESSION: No evidence of DVT.
[2025-01-08 02:00] VITALS: BP 156/78; PULSE 96; RESP 16; O2SAT 94
[2025-01-08 02:07] LABS: Basophils # 0.1 10^3/uL (0.0-0.1); Basophils % 0.8 %; Eosinophils # 0.3 10^3/uL (0.0-0.8); Eosinophils % 3.1 %; Hematocrit 42.9 % (37-53); Lymphocytes % 21.3 %; Mean Corpuscular HGB Conc 32.6 g/dL (30-55); Mean Corpuscular Hemoglobin 30.8 pg (27-33); Mean Corpuscular Volume 94.3 fl (82-101); Mean Platelet Volume 9.3 fL (7.4-10.4); Monocytes # 0.8 10^3/uL (0.2-0.9); Monocytes % 8.6 %; Neutrophils # 6.09 10^3/uL (1.8-7.7); Neutrophils % 65.7 %; Nucleated Red Blood Cells % 0 %; Platelet Count 304 10^3/cmm (157-399); Red Blood Count 4.55 10^6/uL (3.85-5.65); Red Cell Distribution Width 14.3 % (12.1-15.1); White Blood Count 9.28 10^3/uL (3.29-11.43)
--- NOTE | 2025-01-08 02:21 | W.ED.EXTPRO ---
HPI - Extremity Problem General: Chief complaint: Extremity Problem,Nontraumatic Stated complaint: LT Leg Pain Time Seen by Provider: 01/08/25 00:47 Source: patient Limitations: no limitations History of Present Illness: Patient is a chronically ill-appearing 85-year-old gentleman who states he is primarily wheelchair-bound and nonambulatory at baseline and presents to the ER due to concern for swelling of his left lower leg. He denies any acute trauma or injury to his left leg. He states he has had some increased swelling to the left leg for last couple of days and apparently had spoken with a primary care provider kali who recommended he come to get checked out to make sure he does not have a blood clot. He denies any acute shortness of breath or chest pain. No fevers or chills. He does have some mild pain to the left lower leg and tenderness along the medial portion of the leg. MD Complaint: extremity pain and extremity swelling Related Data Home Medications ?Medication ?Instructions ?Recorded ?Confirmed allopurinol 300 mg tablet 600 mg PO BEDTIME 11/23/19 02/17/24 furosemide 40 mg tablet (Lasix) 40 mg PO QAM 11/23/19 02/17/24 guaifenesin 600 mg tablet, 600 mg PO BID 11/23/19 02/17/24 extended release 12 hr (Mucinex) losartan 100 mg tablet 100 mg PO BEDTIME 11/23/19 02/17/24 potassium chloride 20 mEq 20 meq PO BEDTIME 11/23/19 02/17/24 tablet,extended release(part/cryst) (Klor-Con M) acetaminophen 500 mg tablet 1,000 mg PO Q6H PRN Pain 01/27/23 02/17/24 atorvastatin 20 mg tablet (Lipitor) 20 mg PO BEDTIME 01/27/23 02/17/24 diphenhydramine HCl 50 mg capsule 50 mg PO BEDTIME 01/27/23 02/17/24 empagliflozin 10 mg tablet 10 mg PO QAM 01/27/23 02/17/24 (Jardiance) escitalopram oxalate 10 mg tablet 10 mg PO BEDTIME 01/27/23 02/17/24 (Lexapro) omeprazole 40 mg capsule,delayed 40 mg PO DAILY 01/27/23 02/17/24 release oxybutynin chloride 5 mg tablet 5 mg PO TID PRN Bladder Spasms 01/27/23 02/17/24 docusate sodium 100 mg capsule 100 mg PO DAILY 02/17/24 02/17/24 (Colace) Previous Rx's ?Medication ?Instructions ?Recorded limpadeama decongestion to the #1 ea 12/20/20 lower extremities Diabetic Shoes with 3 pairs of #1 ea 09/12/22 inserts magnesium hydroxide 400 mg/5 mL 20 ml PO BID PRN constipation #355 12/11/22 oral suspension (Milk of Magnesia) mL fluticasone 500 mcg-salmeterol 50 1 inh inhalation BID #180 ea 01/07/23 mcg/dose blistr powdr for inhalation (Advair Diskus) Diabetic shoes with 3 inserts #1 ea 01/14/23 hydrocodone 5 mg-acetaminophen 325 1 tab PO Q6H PRN pain #14 tabs 01/27/23 mg tablet tiotropium bromide 1.25 2 puff inhalation DAILY #4 grams 03/18/23 mcg/actuation mist for inhalation (Spiriva Respimat) CPT percussion #1 ea 03/28/23 nystatin 100,000 unit/mL oral 1 ml buccal DAILY #60 mL 08/16/23 suspension metoprolol tartrate 25 mg tablet 25 mg PO BEDTIME #90 tabs 09/25/23 Allergies Allergy/AdvReac Type Severity Reaction Status Date / Time morphine Allergy Unknown unknown Verified 08/16/23 11:26 Sulfa (Sulfonamide Allergy heart acts Verified 08/16/23 11:26 Antibiotics) up [facility] ED PFSH: Medical History Chronic indwelling Hahn catheter Thoracic spine pain Chronic left hip pain Diabetes Fracture of thoracic spine Fall Restrictive airway disease LRTI (lower respiratory tract infection) Ex-smoker Elevated troponin Chest pain Arrhythmia Lymphedema of both lower extremities Leg swelling PVD (peripheral vascular disease) Callus of foot Onychodystrophy Diabetic peripheral neuropathy associated with type 2 diabetes mellitus GERD (gastroesophageal reflux disease) Gout Bilateral occipital neuralgia Hypertension Type 2 diabetes mellitus COPD (chronic obstructive pulmonary disease) Dyslipidemia (high LDL; low HDL) Atherosclerosis MANZANARES (dyspnea on exertion) The EKG showed normal sinus rhythm with first-degree AV block. Some nonspecific T wave changes. normal QRS duration. Peripheral neuropathy Disc degeneration, lumbosacral Surgical History History of surgery on arm History of ankle surgery Hx of cataract extraction History of total left hip replacement Family History Brother Cancer Lung disease Father Cancer Chronic kidney disease (CKD) Grandfather Cancer Lung disease Mother Dementia Diabetes Family/Other Diabetes Chronic kidney disease (CKD) Other CAD (coronary artery disease) Denies family history of Clotting disorder Suicide Anesthesia complication Bleeding disorder Stroke Social History Smoking and tobacco/nicotine status: former use of tobacco/nicotine Quit status (tobacco/nicotine): has quit using Year quit tobacco: 1999 Former quit date comment: 2 ppd x 45 years Alcohol intake: never Substance/Drug Use: never Physical Exam Const: COMMON NORMALS: no acute distress, average body habitus, alert and well nourished GENERAL APPEARANCE: cooperative ORIENTATION/CONSCIOUSNESS: Yes awake OTHER: chronically ill-appearing 85-year-old obese gentleman in no acute distress HENMT: COMMON NORMALS: normocephalic and atraumatic HEAD & SCALP: normocephalic and atraumatic Eye: COMMON NORMALS: conjunctivae normal CONJUNCTIVA: Yes conjunctivae normal Neck/C-Spine: GENERAL: Yes normal visual inspection Resp: COMMON NORMALS: normal respiratory effort, No retractions, No use of accessory muscles and clear to auscultation bilaterally AUSCULTATION: clear to auscultation bilaterally Cardio: COMMON NORMALS: regular rhythm and Peripheral pulses 2+ throughout RHYTHM: regular rhythm PERIPHERAL PULSES: Peripheral pulses 2+ throughout GI: COMMON NORMALS: Soft to palpation and non-tender PALPATION: Yes Soft to palpation Extremity: NARRATIVE EXTREMITY EXAM: Patient has 5 out of 5 strength of bilateral upper and lower extremities. He has compression wraps to the bilateral lower legs. Wraps were removed. He has 3+ severe swelling and edema to the bilateral feet however does not have tremendous amount of swelling to the lower legs. He has approximately 1+ to 2+ pitting edema to the bilateral lower legs. No erythema or warmth noted to the calves or proximal legs. He has palpable pedal pulses to the bilateral lower extremities. Neuro: SENSORIUM/ORIENTATION: Yes alert Skin: COMMON NORMALS: no rashes or lesions noted GENERAL SKIN EXAM: no rashes or lesions noted Course Vital Signs: Vital signs: Vital Signs Temperature 98.1 F 01/08/25 00:52 Pulse Rate 89 01/08/25 03:00 Respiratory Rate 16 01/08/25 03:00 Blood Pressure 158/79 01/08/25 03:00 Pulse Oximetry 95 01/08/25 03:00 Oxygen Delivery Me thod Room Air 01/08/25 03:00 MDM - Extremity (Nontraumatic) Medical Decision Making Patient is a 85-year-old gentleman who presents due to concern for some swelling to the left lower leg and foot. Exam is fairly benign to the left lower extremity other than he does have bilateral pedal edema that is pitting. There is no significant erythema or warmth to suggest an infectious etiology. He is afebrile and his CBC is unremarkable. Venous duplex of the left lower extremity is negative for DVT. Patient is hemodynamically stable. I recommended improved compression of the lower extremities and keeping his legs elevated to help with swelling. I recommended follow-up with his PCP and I provided return precautions. At this time I do not see any indication for additional labs or imaging. Differential Diagnosis Likely cellulitis, superficial thrombophlebitis, lower extremity edema and deep vein thrombosis of lower extremity Lab Data I reviewed the patient's lab results. 01/08/25 01:59 01/08/25 01:59 Radiology Impressions Venous Duplex 01/08/25 01:20 IMPRESSION: No evidence of DVT. Laboratory Results WBC 9.28 10^3/uL (3.29-11.43) 01/08/25 01:59 RBC 4.55 10^6/uL (3.85-5.65) 01/08/25 01:59 Hgb 14.00 g/dL (11.27-16.99) 01/08/25 01:59 Hct 42.9 % (37-53) 01/08/25 01:59 MCV 94.3 fl (82-101) 01/08/25 01:59 MCH 30.8 pg (27-33) 01/08/25 01:59 MCHC 32.6 g/dL (30-55) 01/08/25 01:59 RDW 14.3 % (12.1-15.1) 01/08/25 01:59 Plt Count 304 10^3/cmm (157-399) 01/08/25 01:59 MPV 9.3 fL (7.4-10.4) 01/08/25 01:59 Neut % (Auto) 65.7 % 01/08/25 01:59 Lymph % (Auto) 21.3 % 01/08/25 01:59 Hart % (Auto) 8.6 % 01/08/25 01:59 Eos % (Auto) 3.1 % 01/08/25 01:59 Baso % (Auto) 0.8 % 01/08/25 01:59 Neut # (Auto) 6.09 10^3/uL (1.8-7.7) 01/08/25 01:59 Lymph # (Auto) 2.0 10^3/uL (0.8-4.8) 01/08/25 01:59 Hart # (Auto) 0.8 10^3/uL (0.2-0.9) 01/08/25 01:59 Eos # (Auto) 0.3 10^3/uL (0.0-0.8) 01/08/25 01:59 Baso # (Auto) 0.1 10^3/uL (0.0-0.1) 01/08/25 01:59 Nucleated RBC % (auto) 0 % 01/08/25 01:59 Nucleated RBCs # 0.0 /100WBC 01/08/25 01:59 Sodium 137 mmol/L (136-145) 01/08/25 01:59 Potassium 4.0 mmol/L (3.5-5.1) 01/08/25 01:59 Chloride 96 mmol/L (98-107) L 01/08/25 01:59 Carbon Dioxide 30 mmol/L (22-29) H 01/08/25 01:59 Anion Gap 15.0 (5-19) 01/08/25 01:59 BUN 11 mg/dL (8-23) 01/08/25 01:59 Creatinine 0.7 mg/dL (0.7-1.2) 01/08/25 01:59 GFR Calculation Not Reportable 01/08/25 01:59 Glucose 205 mg/dL (65-115) H 01/08/25 01:59 Calculated Osmolality 289 mOsm/kg (285-295) 01/08/25 01:59 Calcium 9.1 mg/dL (8.5-10.5) 01/08/25 01:59 Total Bilirubin 0.2 mg/dL (0.15-1.2) 01/08/25 01:59 AST 44 U/L (0-40) H 01/08/25 01:59 ALT 51 U/L (0-41) H 01/08/25 01:59 Alkaline Phosphatase 118 U/L (40-130) 01/08/25 01:59 NT-Pro-B Natriuret Pep 87 pg/mL (0-450) 01/08/25 01:59 Total Protein 7.6 g/dL (6.6-8.7) 01/08/25 01:59 Albumin 3.8 g/dL (3.5-5.2) 01/08/25 01:59 Globulin 3.8 g/dL (1.3-4.6) 01/08/25 01:59 All radiology interpretation(s) finalized by discharge Discharge Plan Discharge Patient Disposition: Home Clinical Impression: Edema of both lower extremities due to peripheral venous insufficiency Condition: Stable Prescriptions: No Action potassium chloride [Klor-Con M20] 20 mEq tablet,ER particles/crystals 20 meq PO BEDTIME guaifenesin [Mucinex] 600 mg tablet extended release 12hr 600 mg PO BID losartan 100 mg tablet 100 mg PO BEDTIME furosemide [Lasix] 40 mg tablet 40 mg PO QAM allopurinol 300 mg tablet 600 mg PO BEDTIME (DME) limpadeama decongestion to the lower extremities See Rx Instructions .Route .MEDSUPPLY Qty: 1 0RF Rx Instructions: As directed by physical therapy (DME) Diabetic Shoes with 3 pairs of inserts See Rx Instructions .Route .MEDSUPPLY Qty: 1 0RF Rx Instructions: As directed by [facility] nystatin 100,000 unit/mL suspension 1 ml buccal DAILY Qty: 60 3RF Rx Instructions: administer 1/2 of dose in each side of the mouth Spiriva Respimat 1.25 mcg/actuation mist 2 puff inhalation DAILY Qty: 4 6RF docusate sodium [Colace] 100 mg capsule 100 mg PO DAILY fluticasone propion-salmeterol [Advair Diskus] 500-50 mcg/dose blister with device 1 inh inhalation BID Qty: 180 3RF (DME) Diabetic shoes with 3 inserts See Rx Instructions .Route .MEDSUPPLY Qty: 1 0RF Rx Instructions: As directed HOME (DME) CPT percussion TID See Rx Instructions .Route .MEDSUPPLY Qty: 1 0RF Rx Instructions: Do percussion for 5 to 7 minutes in each area of the chest. Do this on all of the areas of your chest or back metoprolol tartrate 25 mg tablet 25 mg PO BEDTIME Qty: 90 3RF magnesium hydroxide [Milk of Magnesia] 400 mg/5 mL suspension 20 ml PO BID PRN (Reason: constipation) Qty: 355 0RF hydrocodone-acetaminophen 5-325 mg tablet 1 tab PO Q6H PRN (Reason: pain) Qty: 14 0RF oxybutynin chloride 5 mg Tablet 5 mg PO TID PRN (Reason: Bladder Spasms) Lipitor 20 mg Tablet 20 mg PO BEDTIME Sleep Aid Liquid Gels Max St 50 mg Capsule 50 mg PO BEDTIME Prilosec 40 mg Capsule,Delayed Release(Dr/Ec) 40 mg PO DAILY Tylenol Ex Str Rapid Release 500 mg Tablet 1,000 mg PO Q6H PRN (Reason: Pain) Lexapro 10 mg Tablet 10 mg PO BEDTIME Jardiance 10 mg Tablet 10 mg PO QAM Discharge Orders: Discharge ED (Routine); Ordered 01/08/25 Ordered By: Gustavo Miller Referrals: Tyler Rucker MD [Primary Care Provider] - Discharge Diet: Low Salt Discharge Activity: Increase activity as tolerated Patient Instructions: Edema (ED), Pain Management Activity Restrictions/Additional Instructions: Be sure and have your compressions wrapped starting at the feet and proximally up towards your knees. Keep your feet elevated as much as possible to help with the swelling. Follow-up with your primary care provider as needed or return to the ER for any new or worsening symptoms or other concerns. Print Language: Kazakh Coding Level of Care Code ED Trim Mounter for Gregor Mcallister
[2025-01-08 02:29] LABS: Alanine Aminotransferase 51 U/L (0-41); Albumin Level 3.8 g/dL (3.5-5.2); Alkaline Phosphatase 118 U/L (40-130); Aspartate Amino Transferase 44 U/L (0-40); Blood Urea Nitrogen 11 mg/dL (8-23); Calcium 9.1 mg/dL (8.5-10.5); Carbon Dioxide 30 mmol/L (22-29); Chloride 96 mmol/L (98-107); Creatinine Clr Calc Pharmacy 81.8876; Globulin 3.8 g/dL (1.3-4.6); Glucose 205 mg/dL (65-115); Osmolality Calculated 289 mOsm/kg (285-295); Sodium 137 mmol/L (136-145); Total Bilirubin 0.2 mg/dL (0.15-1.2); Total Protein 7.6 g/dL (6.6-8.7)
[2025-01-08 02:38] LABS: NT Pro B Type Natriuretic Pept 87 pg/mL (0-450)
[2025-01-08 03:00] VITALS: BP 158/79; PULSE 89; RESP 16; O2SAT 95
[2025-01-08 04:37] VITALS: BP 159/79; PULSE 93; O2SAT 93
== END 2025-01-08 04:37 | disposition home or self-care (01) ==
PROVIDERS: Emergency Provider Student in an Organized Health Care Education/Training Program; PCP Orthopaedic Surgery
DX: R60.0 Localized edema (principal); I87.2 Venous insufficiency (chronic) (peripheral); Z87.891 Personal history of nicotine dependence; J44.9 Chronic obstructive pulmonary disease, unspecified; E78.5 Hyperlipidemia, unspecified; E11.42 Type 2 diabetes mellitus with diabetic polyneuropathy; I10 Essential (primary) hypertension
CPT/HCPCS: 36415; 80053; 83880; 85025; 93971; 99284

== ENCOUNTER → 2025-01-19 13:17 | Outpatient (BNVA) | payer MEDICARE, SELFPAY | PROVIDERS: PCP Orthopaedic Surgery; Visit Provider Thoracic Surgery (Cardiothoracic Vascular Surgery) | DX: Z09 Encounter for follow-up examination after completed treatment for conditions other than malignant neoplasm (principal); Z87.2 Personal history of diseases of the skin and subcutaneous tissue | CPT/HCPCS: 99203 ==